=== PATIENT | female | born 1975 | race Caucasian/White ===

== ENCOUNTER 2016-03-20 05:05 | Inpatient (IN) ==
[2016-03-20] MEDS ORDERED: Ondansetron 4 MG/2 ML VIAL IV ONE (05:52)
[2016-03-20 05:58] LABS: Basophils % 0.1 %; Hematocrit 34.8 % (35.3-44.9); Hemoglobin 12.1 g/dL (11.5-15.4); Immature Granulocytes % 0.9 % (0-4); Lymphocytes # 1.3 K/mcL (0.6-4.6); Lymphocytes % 6.1 %; Mean Corpuscular HGB Conc 34.8 g/dL (31.6-35.5); Mean Corpuscular Hemoglobin 31.2 pg (28.0-33.3); Mean Corpuscular Volume 89.7 fL (83.0-100.0); Mean Platelet Volume 10.8 fL (9.4-12.4); Monocytes # 1.2 K/mcL (0.0-1.3); Monocytes % 5.8 %; Neutrophils # 18.3 K/mcL (1.6-8.9); Platelet Count 204 K/mcL (140-400); Red Blood Count 3.88 M/mcL (3.82-4.97); Red Cell Distribution Width 12.2 % (11.5-14.5); Segmented Neutrophils % 87.1 %
[2016-03-20 05:59] LABS: Bilirubin,Urine Negative (Negative); Blood,Urine Large (Negative); Clarity,Urine Clear (Clear); Color,Urine Yellow (Yellow); Glucose,Urine (UA) Normal (Normal); Ketones,Urine 40 mg/dL (Negative); Leukocyte Esterase,Urine Negative (Negative); Nitrite,Urine Negative (Negative); PH,Urine 6.5 pH Units (5.0-8.0); Protein,Urine Negative (Neg-Trace); Specific Gravity,Urine 1.006 (1.010-1.025); Urobilinogen,Urine Normal (Normal)
[2016-03-20] MEDS: 0.9 % Sodium Chloride 1,000 ML IV SCH (06:00)
[2016-03-20 06:09] LABS: Squamous Epithelial Cell,Urine Few per lpf (None-Few)
[2016-03-20 06:10] LABS: BUN/Creatinine Ratio 6 (6-26); Calcium 9.1 mg/dL (8.6-10.8); Carbon Dioxide 24 mEq/L (19-29); Chloride 95 mEq/L (98-109); Glucose 120 mg/dL (70-99); Lipase 11 Units/L (8-78); Osmolality,Calculated 272 (280-300); Potassium 2.9 mEq/L (3.5-4.5); Sodium 132 mEq/L (136-145); eGFR For African Americans > 60 (> 60); eGFR For Non-African Americans > 60 (> 60)
[2016-03-20 06:11] LABS: Bacteria,Urine Moderate per hpf (None-Few); Mucus,Urine Few (Few); WBC,Urine 0-3 per hpf (0-3)
[2016-03-20 06:13] LABS: Blood Urea Nitrogen 4 mg/dL (7-20)
[2016-03-20 06:20] LABS: Platelet Estimate Normal (Normal); Reactive Lymphocytes Present (Not Present)
[2016-03-20] MEDS ORDERED: Levofloxacin 750 MG/150 ML 750 MG/150 ML BAG IVPB ONE (06:57)
--- NOTE | 2016-03-20 07:00 | Emergency Department Note ---
Disposition Clinical Impression: Multifocal pneumonia Disposition: Admitted As Inpatient Condition: Good Time of Disposition: 07:07 General Adult HPI - General Chief complaint: ED Chest Pain Stated complaint: CP/Vomiting x Week Source: patient Limitations: no limitations Nursing Notes Reviewed: Yes Vital Signs Reviewed: Yes - History of Present Illness HPI Narrative: Left anterior chest pain pleuritic in nature 2 days. Vomiting today. No prior pulmonary history. No abdominal pain. No flank pain. No diarrhea well- appearing without tachypnea or hypoxia. Onset (ago): hour(s) Location: chest Radiation: non-radiation Pain Severity: moderate Pain Scale: 3 Quality: sharp Consistency: intermittent Improves with: rest (Headache) Worsens with: movement Associated symptoms: Reports: chest pain, cough, nausea/vomiting. Denies: diaphoresis, loss of appetite, malaise - Related Data Home Medications Medication Instructions Recorded Confirmed Guaifenesin/Dm/Pseudoephedrine 1 each PO QID 03/20/16 03/20/16 [Capmist Dm Tablet] PredniSONE 30 mg PO BID 03/20/16 03/20/16 Previous Rx's Medication Instructions Recorded Levofloxacin [Levaquin] 500 mg PO DAILY #6 tablet 03/20/16 Ondansetron ODT [Zofran ODT] 4 mg PO Q6HR PRN #7 tab 03/20/16 Saccharomyces Boulardii [Florastor] 250 mg PO 1-2XD #10 capsule 03/20/16 Allergies Allergy/AdvReac Type Severity Reaction Status Date / Time prednisone Allergy Shakiness Verified 03/20/16 09:02 Constitutional: Denies: fever, chills, weakness, weight change Eyes: Denies: eye pain, eye discharge, vision change ENT ED: Denies: ear pain, throat pain, dental pain, hearing loss, epistaxis, congestion, dysphagia Cardiovascular: Reports: chest pain Respiratory: Reports: as per HPI, cough. Denies: sputum production Gastrointestinal: Reports: nausea, vomiting Genitourinary: Denies: dysuria, frequency, hematuria, discharge Musculoskeletal: Denies: back pain, neck pain, arthralgia, myalgia Integumentary: Denies: rash, abrasion, lesions Neurological: Denies: headache, weakness, numbness, paresthesias, confusion, abnormal gait, vertigo Psychiatric: Denies: anxiety, depression, suicidal thoughts, homicidal thoughts , auditory hallucinations, visual hallucinations Endocrine: Denies: fatigue Hematological/Lymphatic: Denies: easy bleeding, easy bruising Allergic/Immunologic: Denies: facial swelling, urticaria Past Medical History - Past Medical History Medical history: Reports: no medical history Psychiatric history: Reports: no psych history - Social History Smoking Status: Never smoker Smokeless Tobacco Status: No Alcohol use: Reports: none Drug use: Reports: none Physical Exam - General Limitations: no limitations General appearance: alert - Head Head exam: atraumatic, normocephalic, normal inspection - Eye Eye exam: Present: normal appearance, PERRL, EOMI - Expanded Eye Exam Pupils: Left: reactive - ENT ENT exam: normal exam, normal oropharynx, mucous membranes moist - Expanded ENT Exam External ear exam: Present: normal external inspection Mouth exam: Present: normal external inspection Teeth exam: Present: normal inspection Throat exam: Present: normal inspection - Neck Neck exam: Present: normal inspection, full ROM, trachea midline - Chest Chest inspection: Present: symmetric chest wall rise - Respiratory Respiratory exam: Present: wheezes. Absent: respiratory distress - Cardiovascular Cardiovascular exam: Present: regular rate, normal rhythm, normal heart sounds - Abdominal Exam Abdominal exam: Present: soft, Non-Tender. Absent: tenderness, distention, guarding, rebound, rigidity - Extremities Exam Extremities exam: Present: normal inspection, full ROM. Absent: tenderness, pedal edema - Expanded Upper Extremity Exam Shoulder exam: Present: normal inspection, full ROM Arm exam: Present: normal inspection, full ROM Elbow exam: Present: normal inspection, full ROM Forearm/Wrist exam: Present: normal inspection, full ROM Hand exam: Present: normal inspection, full ROM Vascular exam: Normal: capillary refill, radial pulse - Expanded Lower Extremity Exam Hip/Pelvis exam: Present: normal inspection, full ROM Upper leg exam: Present: normal inspection, full ROM Knee exam: Present: normal inspection, full ROM Lower leg exam: Present: normal inspection, full ROM Ankle exam: Present: normal inspection, full ROM Foot/toe exam: Present: normal inspection, full ROM Neurovascular/Tendon exam: Absent: motor deficit, sensory deficit, tendon deficit - Back Exam Back exam: Present: normal inspection, full ROM. Absent: tenderness - Neurological Exam Neurological exam: Present: alert, oriented X3 - Expanded Neurological Exam Patient oriented to: Present: person, place, time Coma Scale Eye Opening: Spontaneous Coma Scale Motor Response: Obeys Commands Coma Scale Verbal Response: Oriented Coma Scale Total: 15 - Psychiatric Psychiatric exam: Present: anxious - Skin Skin exam: Present: warm, dry, intact, normal color Course Vital Signs Temperature 99.6 F 03/20/16 05:10 Pulse Rate 100 03/20/16 05:10 Respiratory Rate 17 03/20/16 05:10 Blood Pressure 112/70 03/20/16 05:10 O2 Sat by Pulse Oximetry 100 03/20/16 05:10 Temperature 100.7 F H 03/20/16 19:08 Pulse Rate 123 03/20/16 19:08 Respiratory Rate 18 03/20/16 19:08 Blood Pressure 116/70 03/20/16 19:08 O2 Sat by Pulse Oximetry 94 L 03/20/16 19:08 Oxygen Delivery Oxygen Delivery Room Air Medical Decision Making - Lab Data Result diagrams: 03/20/16 05:37 03/20/16 05:37 Lab Results 03/20/16 03/20/16 03/20/16 Range/Units 05:30 05:37 05:37 WBC 21.0 H (4.3-11.1) K/mcL RBC 3.88 (3.82-4.97) M/mcL Hgb 12.1 (11.5-15.4) g/dL Hct 34.8 L (35.3-44.9) % MCV 89.7 (83.0-100.0) fL MCH 31.2 (28.0-33.3) pg MCHC 34.8 (31.6-35.5) g/dL RDW 12.2 (11.5-14.5) % Plt Count 204 (140-400) K/mcL MPV 10.8 (9.4-12.4) fL Immature Gran % 0.9 (0-4) % Seg Neutrophils % 87.1 % Lymphocytes % 6.1 % Monocytes % 5.8 % Eosinophils % 0.0 % Basophils % 0.1 % Neutrophils # 18.3 H (1.6-8.9) K/mcL Lymphocytes # 1.3 (0.6-4.6) K/mcL Monocytes # 1.2 (0.0-1.3) K/mcL Eosinophils # 0.0 (0.0-0.6) K/mcL Basophils # 0.0 (0.0-0.2) K/mcL Reactive Lymphocytes Present A (Not Present) Platelet Estimate Normal (Normal) D-Dimer 584 H (0-500) ng/mLFEU Sodium (136-145) mEq/L Potassium (3.5-4.5) mEq/L Chloride (98-109) mEq/L Carbon Dioxide (19-29) mEq/L BUN (7-20) mg/dL Creatinine (0.57-1.11) mg/dL Est GFR ( Amer) (> 60) Est GFR (Non-Af Amer) (> 60) BUN/Creatinine Ratio (6-26) Glucose (70-99) mg/dL Calculated Osmolality (280-300) Calcium (8.6-10.8) mg/dL Troponin I (0-0.03) ng/mL Lipase (8-78) Units/L Urine Color Yellow (Yellow) Urine Clarity Clear (Clear) Urine pH 6.5 (5.0-8.0) pH Units Ur Specific [place] 1.006 L (1.010-1.025) Urine Protein Negative (Neg-Trace) mg/dL Urine Glucose (UA) Normal (Normal) mg/dL Urine Ketones 40 H (Negative) mg/dL Urine Blood Large H (Negative) Urine Nitrite Negative (Negative) Urine Bilirubin Negative (Negative) Urine Urobilinogen Normal (Normal) mg/dL Ur Leukocyte Esterase Negative (Negative) Urine Microscopic RBC 3-5 H (0-3) per hpf Urine Microscopic WBC 0-3 (0-3) per hpf Ur Squamous Epith Cells Few (None-Few) per lpf Urine Bacteria Moderate H (None-Few) per hpf Urine Mucus Few (Few) 03/20/16 03/20/16 Range/Units 05:37 05:37 WBC (4.3-11.1) K/mcL RBC (3.82-4.97) M/mcL Hgb (11.5-15.4) g/dL Hct (35.3-44.9) % MCV (83.0-100.0) fL MCH (28.0-33.3) pg MCHC (31.6-35.5) g/dL RDW (11.5-14.5) % Plt Count (140-400) K/mcL MPV (9.4-12.4) fL Immature Gran % (0-4) % Seg Neutrophils % % Lymphocytes % % Monocytes % % Eosinophils % % Basophils % % Neutrophils # (1.6-8.9) K/mcL Lymphocytes # (0.6-4.6) K/mcL Monocytes # (0.0-1.3) K/mcL Eosinophils # (0.0-0.6) K/mcL Basophils # (0.0-0.2) K/mcL Reactive Lymphocytes (Not Present) Platelet Estimate (Normal) D-Dimer (0-500) ng/mLFEU Sodium 132 L (136-145) mEq/L Potassium 2.9 L (3.5-4.5) mEq/L Chloride 95 L (98-109) mEq/L Carbon Dioxide 24 (19-29) mEq/L BUN 4 L (7-20) mg/dL Creatinine 0.62 (0.57-1.11) mg/dL Est GFR ( Amer) > 60 (> 60) Est GFR (Non-Af Amer) > 60 (> 60) BUN/Creatinine Ratio 6 (6-26) Glucose 120 H (70-99) mg/dL Calculated Osmolality 272 L (280-300) Calcium 9.1 (8.6-10.8) mg/dL Troponin I 0.00 (0-0.03) ng/mL Lipase 11 (8-78) Units/L Urine Color (Yellow) Urine Clarity (Clear) Urine pH (5.0-8.0) pH Units Ur Specific [place] (1.010-1.025) Urine Protein (Neg-Trace) mg/dL Urine Glucose (UA) (Normal) mg/dL Urine Ketones (Negative) mg/dL Urine Blood (Negative) Urine Nitrite (Negative) Urine Bilirubin (Negative) Urine Urobilinogen (Normal) mg/dL Ur Leukocyte Esterase (Negative) Urine Microscopic RBC (0-3) per hpf Urine Microscopic WBC (0-3) per hpf Ur Squamous Epith Cells (None-Few) per lpf Urine Bacteria (None-Few) per hpf Urine Mucus (Few) - EKG Data EKG #1 EKG attestation: Yes I reviewed and interpreted this EKG. EKG results narrative: sinus tachycardia. No acute injury pattern. Intervals unremarkable
--- NOTE | 2016-03-20 08:32 | Emergency Department Note ---
Disposition Clinical Impression: Multifocal pneumonia Disposition: Admitted As Inpatient Condition: Good Reasons to Return/Additional Instructions: Re eval w/ your doctor in 2-3 days, ER sooner if worse Prescriptions: Ondansetron ODT [Zofran ODT] 4 mg PO Q6HR PRN #7 tab PRN Reason: Vomiting Levofloxacin [Levaquin] 500 mg PO DAILY #6 tablet Saccharomyces Boulardii [Florastor] 250 mg PO 1-2XD #10 capsule Referrals: Roxie Hinojosa CNP [Primary Care Provider] - Time of Disposition: 08:32 General Adult HPI - General Chief complaint: ED Chest Pain Stated complaint: CP/Vomiting x Week Time Seen by Provider: 03/20/16 08:25 Source: patient Limitations: no limitations - History of Present Illness Location: chest Pain Scale: 7 Quality: sharp Improves with: rest (Headache) Worsens with: movement Associated symptoms: Reports: chest pain, cough, nausea/vomiting. Denies: diaphoresis, loss of appetite, malaise - Related Data Previous Rx's Medication Instructions Recorded Levofloxacin [Levaquin] 500 mg PO DAILY #6 tablet 03/20/16 Ondansetron ODT [Zofran ODT] 4 mg PO Q6HR PRN #7 tab 03/20/16 Saccharomyces Boulardii [Florastor] 250 mg PO 1-2XD #10 capsule 03/20/16 Allergies Allergy/AdvReac Type Severity Reaction Status Date / Time prednisone Allergy Shakiness Verified 03/20/16 05:09 Constitutional: Denies: fever, chills, weakness, weight change Eyes: Denies: eye pain, eye discharge, vision change ENT ED: Denies: ear pain, throat pain, dental pain, hearing loss, epistaxis, congestion, dysphagia Cardiovascular: Reports: chest pain Respiratory: Reports: as per HPI, cough. Denies: sputum production Gastrointestinal: Reports: nausea, vomiting Genitourinary: Denies: dysuria, frequency, hematuria, discharge Musculoskeletal: Denies: back pain, neck pain, arthralgia, myalgia Integumentary: Denies: rash, abrasion, lesions Neurological: Denies: headache, weakness, numbness, paresthesias, confusion, abnormal gait, vertigo Psychiatric: Denies: anxiety, depression, suicidal thoughts, homicidal thoughts , auditory hallucinations, visual hallucinations Endocrine: Denies: fatigue Hematological/Lymphatic: Denies: easy bleeding, easy bruising Allergic/Immunologic: Denies: facial swelling, urticaria Past Medical History - Past Medical History Medical history: Reports: no medical history Psychiatric history: Reports: no psych history - Social History Smoking Status: Never smoker Smokeless Tobacco Status: No Alcohol use: Reports: none Drug use: Reports: none Physical Exam - General Limitations: no limitations General appearance: alert Course - Reevaluation(s) Reevaluation #1: Received patient in sign out from the department emergency medicine overnight attending Dr. Jessica Olmedo. Please see copy of his note for details of the history and physical evaluation and management up to the point of sign out at 7 AM. I was to follow up results of the CAT scan of the chest after d-dimer [address] shows multifocal pneumonia. No pulmonary embolism. Patient is still tachycardic at rest 113 118 bpm period and feels "terrible". Patient is getting IV antibiotics. Decision is made to admit patient. Hospitalist is being paged. Patient getting breakfast tray and IV Dilaudid for control of her symptoms. Patient is being admitted for diagnosis of multifocal pneumonia. Provided 35 minutes of critical care services for this patient. Time: 08:30 Vital Signs Temperature 99.6 F 03/20/16 05:10 Pulse Rate 100 03/20/16 05:10 Respiratory Rate 17 03/20/16 05:10 Blood Pressure 112/70 03/20/16 05:10 O2 Sat by Pulse Oximetry 100 03/20/16 05:10 Temperature 99.6 F 03/20/16 05:10 Pulse Rate 100 03/20/16 07:34 Respiratory Rate 18 03/20/16 07:34 Blood Pressure 119/73 03/20/16 07:34 O2 Sat by Pulse Oximetry 97 03/20/16 07:34 Oxygen Delivery Oxygen Delivery Room Air Medical Decision Making - Lab Data Result diagrams: 03/20/16 05:37 03/20/16 05:37 Lab Results 03/20/16 03/20/16 03/20/16 Range/Units 05:30 05:37 05:37 WBC 21.0 H (4.3-11.1) K/mcL RBC 3.88 (3.82-4.97) M/mcL Hgb 12.1 (11.5-15.4) g/dL Hct 34.8 L (35.3-44.9) % MCV 89.7 (83.0-100.0) fL MCH 31.2 (28.0-33.3) pg MCHC 34.8 (31.6-35.5) g/dL RDW 12.2 (11.5-14.5) % Plt Count 204 (140-400) K/mcL MPV 10.8 (9.4-12.4) fL Immature Gran % 0.9 (0-4) % Seg Neutrophils % 87.1 % Lymphocytes % 6.1 % Monocytes % 5.8 % Eosinophils % 0.0 % Basophils % 0.1 % Neutrophils # 18.3 H (1.6-8.9) K/mcL Lymphocytes # 1.3 (0.6-4.6) K/mcL Monocytes # 1.2 (0.0-1.3) K/mcL Eosinophils # 0.0 (0.0-0.6) K/mcL Basophils # 0.0 (0.0-0.2) K/mcL Reactive Lymphocytes Present A (Not Present) Platelet Estimate Normal (Normal) D-Dimer 584 H (0-500) ng/mLFEU Sodium (136-145) mEq/L Potassium (3.5-4.5) mEq/L Chloride (98-109) mEq/L Carbon Dioxide (19-29) mEq/L BUN (7-20) mg/dL Creatinine (0.57-1.11) mg/dL Est GFR ( Amer) (> 60) Est GFR (Non-Af Amer) (> 60) BUN/Creatinine Ratio (6-26) Glucose (70-99) mg/dL Calculated Osmolality (280-300) Calcium (8.6-10.8) mg/dL Troponin I (0-0.03) ng/mL Lipase (8-78) Units/L Urine Color Yellow (Yellow) Urine Clarity Clear (Clear) Urine pH 6.5 (5.0-8.0) pH Units Ur Specific [place] 1.006 L (1.010-1.025) Urine Protein Negative (Neg-Trace) mg/dL Urine Glucose (UA) Normal (Normal) mg/dL Urine Ketones 40 H (Negative) mg/dL Urine Blood Large H (Negative) Urine Nitrite Negative (Negative) Urine Bilirubin Negative (Negative) Urine Urobilinogen Normal (Normal) mg/dL Ur Leukocyte Esterase Negative (Negative) Urine Microscopic RBC 3-5 H (0-3) per hpf Urine Microscopic WBC 0-3 (0-3) per hpf Ur Squamous Epith Cells Few (None-Few) per lpf Urine Bacteria Moderate H (None-Few) per hpf Urine Mucus Few (Few) 03/20/16 03/20/16 Range/Units 05:37 05:37 WBC (4.3-11.1) K/mcL RBC (3.82-4.97) M/mcL Hgb (11.5-15.4) g/dL Hct (35.3-44.9) % MCV (83.0-100.0) fL MCH (28.0-33.3) pg MCHC (31.6-35.5) g/dL RDW (11.5-14.5) % Plt Count (140-400) K/mcL MPV (9.4-12.4) fL Immature Gran % (0-4) % Seg Neutrophils % % Lymphocytes % % Monocytes % % Eosinophils % % Basophils % % Neutrophils # (1.6-8.9) K/mcL Lymphocytes # (0.6-4.6) K/mcL Monocytes # (0.0-1.3) K/mcL Eosinophils # (0.0-0.6) K/mcL Basophils # (0.0-0.2) K/mcL Reactive Lymphocytes (Not Present) Platelet Estimate (Normal) D-Dimer (0-500) ng/mLFEU Sodium 132 L (136-145) mEq/L Potassium 2.9 L (3.5-4.5) mEq/L Chloride 95 L (98-109) mEq/L Carbon Dioxide 24 (19-29) mEq/L BUN 4 L (7-20) mg/dL Creatinine 0.62 (0.57-1.11) mg/dL Est GFR ( Amer) > 60 (> 60) Est GFR (Non-Af Amer) > 60 (> 60) BUN/Creatinine Ratio 6 (6-26) Glucose 120 H (70-99) mg/dL Calculated Osmolality 272 L (280-300) Calcium 9.1 (8.6-10.8) mg/dL Troponin I 0.00 (0-0.03) ng/mL Lipase 11 (8-78) Units/L Urine Color (Yellow) Urine Clarity (Clear) Urine pH (5.0-8.0) pH Units Ur Specific [place] (1.010-1.025) Urine Protein (Neg-Trace) mg/dL Urine Glucose (UA) (Normal) mg/dL Urine Ketones (Negative) mg/dL Urine Blood (Negative) Urine Nitrite (Negative) Urine Bilirubin (Negative) Urine Urobilinogen (Normal) mg/dL Ur Leukocyte Esterase (Negative) Urine Microscopic RBC (0-3) per hpf Urine Microscopic WBC (0-3) per hpf Ur Squamous Epith Cells (None-Few) per lpf Urine Bacteria (None-Few) per hpf Urine Mucus (Few)
[2016-03-20] MEDS ORDERED: *HR* HYDROmorphone (PF) 1 MG/ML SYRINGE IVP ONE (08:33)
[2016-03-20] MEDS ORDERED: Ondansetron 4 MG/2 ML VIAL IVP ONE (08:33)
[2016-03-20] MEDS ORDERED: *HR* Morphine 2 MG/ML SYRINGE IVP PRN (09:36)
[2016-03-20] MEDS ORDERED: Naloxone 0.4 MG/ML INJ IVP PRN (09:36)
--- NOTE | 2016-03-20 10:31 | Internal Med History&Physical ---
Date of Encounter: 03/20/16 Time of Encounter: 09:30 Internal Medicine - H&P: HPI Chief complaint: Fever, nausea, vomiting, cough and chest pain x 7 days Admitted From: Emergency Dept Plans for Post Hospital Care: Home History of present illness: Ms. Gamez is a 40 year old female with no signifcant past medical history, non -smoker presents with 7 days of nausea, vomiting, cough, chest pain and fever. Cough is intermittently production of yellow sputum, cough and deep breathing associated with left lower chest was pain posteriorly. No hemoptysis, no rash. Vomitus is nion-billious and non-projectile, no hematemesis. She reports epigastric fullness/soreness. No rash. No sick contacts, no recent travel. She has not recieved influenza vaccination for the season. 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 [facility] and prescrined prednisone and a cough mixture. The prednisone cause anxiety, angiutation and confusion. Her PCP STOPPED PREDNISONE SAYING THE DOSE WAS TOO HIGH. She has not receieved any antibiotics. She has progressive gotten worse with SOB at rest. She is FULL CODE as per discussion, she nominates his boyfriend listed on [employer] ([phone]) as his NOK/POA. ROS: A 10-point ROS was performed, positives and relevant negatives are detailed , system-symptom not mentioned is assumed negative unless otherwise stated. Positives: malaise, nausea, vomiting, fever, productive cough and chest pain ( pleuritic). Negatives: No PND or orthopnea., no chest pain (no pleurisy), no sore-throat, no hemoptysis, hematemesis, or hematochezia, no abdominal pain or diarrhea, no urinary or new-onset neurological symptoms. Family history: Father: COPD. Vital Signs Temperature 99.6 F 03/20/16 05:10 Pulse Rate 100 03/20/16 05:10 Respiratory Rate 17 03/20/16 05:10 Blood Pressure 112/70 03/20/16 05:10 O2 Sat by Pulse Oximetry 100 03/20/16 05:10 Temperature 99.6 F 03/20/16 05:10 Pulse Rate 95 03/20/16 05:47 Respiratory Rate 20 03/20/16 05:47 Blood Pressure 109/73 03/20/16 05:47 O2 Sat by Pulse Oximetry 96 03/20/16 05:47 Not in distress, somewhat lethargic, ill but non-toxic looking. Not pale, anicteric, warm to touch, acyanotic. Moist mucosa. HEENT: No JVD, no cervical lymphadenopathy, Chest : CTAB, diminished generally, especially in the bases. Heart: Tachycardia, RR, HS1/2, no m/r/g. Abdomen: soft, tender in the epigastrium and the tip of the spleen, no masses, DIRECTOR EDUCATION: AAO X 3, no gross focal neurological signs. Skin: No active skin lesion Extremities: No pedal edema, normal pedal pulses, no calf tenderness Lab Results 03/20/16 03/20/16 03/20/16 Range/Units 05:30 05:37 05:37 WBC 21.0 H (4.3-11.1) K/mcL RBC 3.88 (3.82-4.97) M/mcL Hgb 12.1 (11.5-15.4) g/dL Hct 34.8 L (35.3-44.9) % MCV 89.7 (83.0-100.0) fL MCH 31.2 (28.0-33.3) pg MCHC 34.8 (31.6-35.5) g/dL RDW 12.2 (11.5-14.5) % Plt Count 204 (140-400) K/mcL MPV 10.8 (9.4-12.4) fL Immature Gran % 0.9 (0-4) % Seg Neutrophils % 87.1 % Lymphocytes % 6.1 % Monocytes % 5.8 % Eosinophils % 0.0 % Basophils % 0.1 % Neutrophils # 18.3 H (1.6-8.9) K/mcL Lymphocytes # 1.3 (0.6-4.6) K/mcL Monocytes # 1.2 (0.0-1.3) K/mcL Eosinophils # 0.0 (0.0-0.6) K/mcL Basophils # 0.0 (0.0-0.2) K/mcL Reactive Lymphocytes Present A (Not Present) Platelet Estimate Normal (Normal) D-Dimer 584 H (0-500) ng/mLFEU Sodium (136-145) mEq/L Potassium (3.5-4.5) mEq/L Chloride (98-109) mEq/L Carbon Dioxide (19-29) mEq/L BUN (7-20) mg/dL Creatinine (0.57-1.11) mg/dL Est GFR ( Amer) (> 60) Est GFR (Non-Af Amer) (> 60) BUN/Creatinine Ratio (6-26) Glucose (70-99) mg/dL Calculated Osmolality (280-300) Calcium (8.6-10.8) mg/dL Troponin I (0-0.03) ng/mL Lipase (8-78) Units/L Urine Color Yellow (Yellow) Urine Clarity Clear (Clear) Urine pH 6.5 (5.0-8.0) pH Units Ur Specific [place] 1.006 L (1.010-1.025) Urine Protein Negative (Neg-Trace) mg/dL Urine Glucose (UA) Normal (Normal) mg/dL Urine Ketones 40 H (Negative) mg/dL Urine Blood Large H (Negative) Urine Nitrite Negative (Negative) Urine Bilirubin Negative (Negative) Urine Urobilinogen Normal (Normal) mg/dL Ur Leukocyte Esterase Negative (Negative) Urine Microscopic RBC 3-5 H (0-3) per hpf Urine Microscopic WBC 0-3 (0-3) per hpf Ur Squamous Epith Cells Few (None-Few) per lpf Urine Bacteria Moderate H (None-Few) per hpf Urine Mucus Few (Few) CXR: Bibasilar pneumonia Chest CT (done by ED physician because of elevated d-dimer) shows multifocal pneumonia. No pulmonary embolism. Chronic granulomatous disease. EKG: NSR, normal intervals, normal axis, no st-t segment or T wave anomaly IMP Multifocal pneuomonia CT evidence of chronic granulomatous disease (focus in the lung) PLAN Admit for IV hydration, IV antibiotics, antiemetic and anlgesia Supportive care, prn oxygen as required. Regular diet. Famotidine for GI prophylaxis No indication for DVT prophylaxis I discussed my assessment with the patient, she verbalized understanding and is agreeable to admission. She is admitted for IV antibiotics and other supportive care. Past Med Surg Social Fam HX - Past Medical History Medical history: no medical history Psychiatric history: no psych history - Social History Smoking Status: Never smoker Smokeless Tobacco Status: No Alcohol use: none Drug use: none Internal Medicine - H&P: Meds Guaifenesin/Dm/Pseudoephedrine [Capmist Dm Tablet] 1 each PO QID 03/20/16 [ History] Levofloxacin [Levaquin] 500 mg PO DAILY #6 tablet 03/20/16 [Rx] Ondansetron ODT [Zofran ODT] 4 mg PO Q6HR PRN #7 tab 03/20/16 [Rx] PredniSONE 30 mg PO BID 03/20/16 [History] Saccharomyces Boulardii [Florastor] 250 mg PO 1-2XD #10 capsule 03/20/16 [Rx] Allergies prednisone Allergy (Verified 03/20/16 09:02) Shakiness her doctor told her not to take it All Systems PM: A 10-system review of systems was performed and is negative for pertinent findings except as documented above in the HPI. - Constitutional Vitals: Temp Pulse Resp BP Pulse Ox 99.1 F 101 19 117/69 92 L 03/20/16 09:36 03/20/16 09:36 03/20/16 09:36 03/20/16 09:36 03/20/16 09:36 Internal Med - H&P Results - Labs CBC & Chem 7: 03/20/16 05:37 03/20/16 05:37
[2016-03-20] MEDS: 0.9 % Sodium Chloride w KCl 20 MEQ/1,000 ML MLS IVC SCH ×2 (10:38→20:55)
[2016-03-20] MEDS: Albuterol 2.5 MG/3 ML NEBULIZER IH SCH ×3 (11:00→22:00)
[2016-03-20] MEDS: *HR* HYDROcodone/Acet 5/325 mg TABLET PO PRN ×2 (11:58→19:29)
[2016-03-20] MEDS: Ketorolac 30 MG/ML VIAL IVP PRN (14:57)
[2016-03-20] MEDS: Ondansetron 4 MG/2 ML VIAL IVP PRN (15:02)
--- NOTE | 2016-03-20 16:20 | Electrocardiograph Report ---
[address] [address] Test Date: 2016-03-20 Pat Name: Patrice Gamez Department: 103 Room: 3B Gender: F [employer]: : 1975 Requested By: Zuhair Humphrey Order Number: [id number] Reading MD: Salomón Jaimes Measurements Intervals Luana Rate: 94 P: 65 NV: 112 QRS: 52 QRSD: 82 T: 41 QT: 342 QTc: 394 Interpretive Statements SINUS RHYTHM WITH SHORT NV INTERVAL Electronically Signed On 03-20-2016 16:18:39 EST by Salomón Jaimes
[2016-03-20] MEDS ORDERED: *HR* LORazepam 0.5 MG TABLET PO ONE (20:32)
[2016-03-20] MEDS: Famotidine 20 MG TABLET PO SCH (20:55)
[2016-03-20] MEDS: Acetaminophen 325 MG TABLET PO PRN (23:17)
[2016-03-21] MEDS ORDERED: Piperacillin/Tazobactam 3.375 GM in D5% in Water (Mini-Bag+) 100 ML IVPB SCH (03:00)
[2016-03-21] MEDS: *HR* HYDROcodone/Acet 5/325 mg TABLET PO PRN ×3 (04:29→19:40)
[2016-03-21 04:41] LABS: Basophils % 0.2 %; Hematocrit 32.2 % (35.3-44.9); Hemoglobin 10.7 g/dL (11.5-15.4); Immature Granulocytes % 0.9 % (0-4); Lymphocytes % 5.5 %; Mean Corpuscular HGB Conc 33.2 g/dL (31.6-35.5); Mean Corpuscular Hemoglobin 30.6 pg (28.0-33.3); Mean Platelet Volume 10.6 fL (9.4-12.4); Monocytes # 1.5 K/mcL (0.0-1.3); Monocytes % 8.4 %; Platelet Count 186 K/mcL (140-400); Red Cell Distribution Width 12.7 % (11.5-14.5)
[2016-03-21 04:53] LABS: BUN/Creatinine Ratio 8 (6-26); Blood Urea Nitrogen 5 mg/dL (7-20); Calcium 8.2 mg/dL (8.6-10.8); Carbon Dioxide 22 mEq/L (19-29); Chloride 107 mEq/L (98-109); Glucose 146 mg/dL (70-99); Osmolality,Calculated 284 (280-300); Sodium 137 mEq/L (136-145); eGFR For African Americans > 60 (> 60); eGFR For Non-African Americans > 60 (> 60)
[2016-03-21] MEDS: Albuterol 2.5 MG/3 ML NEBULIZER IH SCH ×2 (04:53→10:03)
[2016-03-21] MEDS: 0.9 % Sodium Chloride 1,000 ML IV SCH (05:30)
[2016-03-21] MEDS: 0.9 % Sodium Chloride w KCl 20 MEQ/1,000 ML MLS IVC SCH (06:28)
[2016-03-21] MEDS: *HR* Enoxaparin 40 MG/0.4 ML SYRINGE SQ SCH (06:28)
[2016-03-21] MEDS: Ketorolac 30 MG/ML VIAL IVP PRN ×2 (06:32→15:15)
[2016-03-21] MEDS: Famotidine 20 MG TABLET PO SCH ×2 (07:57→19:40)
[2016-03-21] MEDS ORDERED: Levofloxacin 750 MG/150 ML 750 MG/150 ML BAG IVPB SCH (09:00)
[2016-03-21] MEDS: Ondansetron 4 MG/2 ML VIAL IVP PRN ×2 (10:28→19:40)
[2016-03-21] MEDS: Azithromycin 500 MG in D5% in Water 250 ML IVPB SCH (10:32)
[2016-03-21] MEDS ORDERED: 0.9 % Sodium Chloride 1,000 ML IVC ONE (15:07)
[2016-03-21] MEDS ORDERED: *HR* LORazepam 1 MG TABLET PO ONE ×2 (15:08→21:28)
--- NOTE | 2016-03-21 15:12 | Internal Med Progress Note ---
Date of Encounter: 03/21/16 Time of Encounter: 10:30 - Assessment and plan (1) Sepsis Current Visit: Yes Status: Acute Assessment and plan: Patient with fever, Tmax 102.7, tachycardia, leukocytosis and bilateral pneumonia She has been started on antibiotics Chart review reveals no cultures Stat blood and sputum cultures ordered Check lactate BP WNL IVF bolus for tachycardia Patient very anxious at time of review and this may also be causing tachycardia Will d/c albuterol nebs, patient is not wheezing Continue ceftriaxone 2g daily, and Azithromycin 500mg IV daily Follow cultures Monitor chem and CBC Patient is high risk due to diagnosis of sepsis , multifocal pneumonia with risk for progression to severe sepsis and risk for respiratory failure Supplemental O2 prn Qualifiers: Sepsis type: sepsis due to unspecified organism Qualified Code(s): A41.9 - Sepsis, unspecified organism (2) Pneumonia Current Visit: Yes Status: Acute Assessment and plan: As above Qualifiers: Pneumonia type: due to unspecified organism Laterality: bilateral Lung location: unspecified part of lung Qualified Code(s): J18.9 - Pneumonia, unspecified organism - Subjective Interval history: 40 Y/O F Patient has no PMH except for prednisone induced psychosis in the past week after she went to an urgent care for URI and was given prednisone She is admitted for management of sepsis secondary to bilateral pneumonia She is seen at bedside s/p albuterol neb, very anxious She denies new complains except that she is anxious She has been started on appropriate therapy for Community acquired pneumonia - Constitutional Vitals: Temp Pulse Resp BP Pulse Ox 98.1 F 111 20 122/80 93 L 03/21/16 14:59 03/21/16 14:59 03/21/16 11:22 03/21/16 14:59 03/21/16 14:59 General appearance: Present: mild distress, A&O X 3, morbidly obese, pleasant - Head Head exam: Present: atraumatic, normocephalic - Eye Eye exam: Present: PERRL, conjuntiva pink, sclera anicteric Pupils: Present: PERRL - Neck Neck exam general surgery: Present: supple, trachea midline. Absent: lymphadenopathy - Respiratory Respiratory exam: Present: rhonchi - Cardiovascular Cardiovascular exam: Present: RRR, +S1, +S2. Absent: diastolic murmur, gallop, rubs, systolic murmur - GI/Abdominal GI/Abdominal exam: Present: normal bowel sounds, soft, no peritoneal signs. Absent: distended, tenderness - Extremities Exam Extremities exam: Present: warm, radial pulses palpable and symetrical. Absent : calf tenderness, cyanotic, pedal edema - Neurological Exam Neurological exam: Present: CN II-XII intact, oriented X3, no focal deficits. Absent: pronater drift, facial droop, speech deficit - Skin Skin exam: Present: dry, intact Internal Medicine: Result - Labs CBC & Chem 7: 03/21/16 04:07 03/21/16 04:07 Labs: Short CBC 03/21/16 Range/Units 04:07 WBC 17.7 H (4.3-11.1) K/mcL Hgb 10.7 L (11.5-15.4) g/dL Hct 32.2 L (35.3-44.9) % Plt Count 186 (140-400) K/mcL Neutrophils # 15.0 H (1.6-8.9) K/mcL BMP 03/21/16 04:07 Sodium 137 Potassium 4.0 D Chloride 107 Carbon Dioxide 22 BUN 5 L Creatinine 0.62 Glucose 146 H Calcium 8.2 L - ABG Interpretation ABG results: PT/INR, D-dimer D-Dimer 584 ng/mLFEU (0-500) H 03/20/16 05:37 Consult Discharge Plan - Plan Referrals: Roxie Hinojosa CNP [Primary Care Provider] - 03/28/16 10:30 am
[2016-03-22] MEDS: *HR* HYDROcodone/Acet 5/325 mg TABLET PO PRN ×3 (02:26→19:51)
[2016-03-22 04:58] LABS: Basophils % 0.1 %; Eosinophils % 0.3 %; Hematocrit 29.8 % (35.3-44.9); Lymphocytes # 0.8 K/mcL (0.6-4.6); Lymphocytes % 4.9 %; Mean Corpuscular HGB Conc 33.6 g/dL (31.6-35.5); Mean Corpuscular Hemoglobin 30.3 pg (28.0-33.3); Mean Corpuscular Volume 90.3 fL (83.0-100.0); Mean Platelet Volume 10.5 fL (9.4-12.4); Monocytes # 1.3 K/mcL (0.0-1.3); Neutrophils # 13.3 K/mcL (1.6-8.9); Platelet Count 214 K/mcL (140-400); Red Cell Distribution Width 12.8 % (11.5-14.5); Segmented Neutrophils % 84.7 %
[2016-03-22 05:15] LABS: BUN/Creatinine Ratio 10 (6-26); Blood Urea Nitrogen 6 mg/dL (7-20); Calcium 7.9 mg/dL (8.6-10.8); Carbon Dioxide 20 mEq/L (19-29); Chloride 107 mEq/L (98-109); Glucose 104 mg/dL (70-99); Osmolality,Calculated 278 (280-300); Potassium 3.7 mEq/L (3.5-4.5); Sodium 135 mEq/L (136-145); eGFR For African Americans > 60 (> 60); eGFR For Non-African Americans > 60 (> 60)
[2016-03-22] MEDS: Ketorolac 30 MG/ML VIAL IVP PRN ×3 (05:29→21:36)
[2016-03-22] MEDS: *HR* Enoxaparin 40 MG/0.4 ML SYRINGE SQ SCH (05:30)
[2016-03-22] MEDS: 0.9 % Sodium Chloride w KCl 20 MEQ/1,000 ML MLS IVC SCH ×2 (05:35)
[2016-03-22] MEDS: Famotidine 20 MG TABLET PO SCH ×2 (08:27→19:21)
[2016-03-22] MEDS: Azithromycin 500 MG in D5% in Water 250 ML IVPB SCH (09:14)
[2016-03-22] MEDS: GuaiFENesin/Codeine Oral Soln 5 ML UDC PO PRN ×2 (12:46→19:20)
--- NOTE | 2016-03-22 14:21 | Internal Med Progress Note ---
Date of Encounter: 03/22/16 Time of Encounter: 11:25 - Assessment and plan (1) Sepsis Current Visit: Yes Status: Acute Assessment and plan: Patient with fever, Tmax 102.7, tachycardia, leukocytosis and bilateral pneumonia Fever is slightly improving, she remains tachycardic Blood and sputum cultures have been sent, pending results Chest CTA with bilateral pneumonia Continue Ceftriaxone 2g daily Continue Azithromycn 500mg IV daily Transfer out of bs unit, continuous pulse oximetry and cardiac monitoring Hold IVF Lactate is normal, patient is awake, no signs of severe sepsis If patient remains febrile after 48 hours of antibiotics, will obtain Chest imaging to r/o parapneumonic effusion and will escalate antibiotics Qualifiers: Sepsis type: sepsis due to unspecified organism Qualified Code(s): A41.9 - Sepsis, unspecified organism (2) Pneumonia Current Visit: Yes Status: Acute Assessment and plan: As above Qualifiers: Pneumonia type: due to unspecified organism Laterality: bilateral Lung location: unspecified part of lung Qualified Code(s): J18.9 - Pneumonia, unspecified organism - Subjective Interval history: 40 Y/O F Patient has no PMH except for prednisone induced psychosis in the past week after she went to an urgent care for URI and was given prednisone She is admitted for management of sepsis secondary to bilateral pneumonia She is seen at bedside this morning She complains of anxiety symptoms She is now able to produce sputum which has been sent for culture She continues to be febrile, T max 100.9 03/22/16 0300 She is also hypoxic requiring supplemental O2 She otherwise looks stable, laying flat in bed and speaking complete sentences - Constitutional Vitals: Temp Pulse Resp BP Pulse Ox 99.1 F 105 18 107/72 90 L 03/22/16 11:09 03/22/16 11:09 03/22/16 11:09 03/22/16 11:09 03/22/16 11:09 General appearance: Present: mild distress, A&O X 3, morbidly obese, pleasant - Head Head exam: Present: atraumatic, normocephalic - Eye Eye exam: Present: PERRL, conjuntiva pink, sclera anicteric Pupils: Present: PERRL - Neck Neck exam general surgery: Present: supple, trachea midline. Absent: lymphadenopathy - Respiratory Additional comments: Dimished breath sounds on the left lung zone at the base, new from yesterday's examination, no wheezing, no rhonchi - Cardiovascular Cardiovascular exam: Present: RRR, +S1, +S2. Absent: diastolic murmur, gallop, rubs, systolic murmur - GI/Abdominal GI/Abdominal exam: Present: normal bowel sounds, soft, no peritoneal signs. Absent: distended, tenderness - Extremities Exam Extremities exam: Present: warm, radial pulses palpable and symetrical. Absent : calf tenderness, cyanotic, pedal edema - Neurological Exam Neurological exam: Present: CN II-XII intact, oriented X3, no focal deficits. Absent: pronater drift, facial droop, speech deficit - Skin Skin exam: Present: dry, intact Internal Medicine: Result - Labs CBC & Chem 7: 03/22/16 04:23 03/22/16 04:23 Labs: Short CBC 03/22/16 Range/Units 04:23 WBC 15.7 H (4.3-11.1) K/mcL Hgb 10.0 L (11.5-15.4) g/dL Hct 29.8 L (35.3-44.9) % Plt Count 214 (140-400) K/mcL Neutrophils # 13.3 H (1.6-8.9) K/mcL BMP 03/22/16 04:23 Sodium 135 L Potassium 3.7 Chloride 107 Carbon Dioxide 20 BUN 6 L Creatinine 0.58 Glucose 104 H Calcium 7.9 L - ABG Interpretation ABG results: PT/INR, D-dimer D-Dimer 584 ng/mLFEU (0-500) H 03/20/16 05:37 Consult Discharge Plan - Plan Referrals: Roxie Hinojosa CNP [Primary Care Provider] - 03/28/16 10:30 am
[2016-03-22] MEDS: Acetaminophen 325 MG TABLET PO PRN (19:21)
[2016-03-23] MEDS ORDERED: Ipratropium/Albuterol Neb 3 ML IH STA (00:14)
[2016-03-23] MEDS ORDERED: Ipratropium/Albuterol Neb 3 ML IH PRN (00:15)
[2016-03-23] MEDS: *HR* HYDROcodone/Acet 5/325 mg TABLET PO PRN ×3 (00:42→12:53)
[2016-03-23] MEDS: GuaiFENesin/Codeine Oral Soln 5 ML UDC PO PRN ×2 (02:50→17:41)
[2016-03-23] MEDS ORDERED: Furosemide 20 MG/2 ML VIAL IVP STA (05:11)
--- NOTE | 2016-03-23 05:12 | Event Note ---
Date of Encounter: 03/23/16 Time of Encounter: 05:12 On-call hospitalist note: RN reports that the pt has Progressively worsening shortness of breath and now is short of breath at rest, with 6 LPM oxygen. I have evaluated the pt. crackles on the right side. stat CXR showed left pleural effusion and air space opacities on the right side worsened. I suspect pulmonary edema likely than infection (WBC count is improving and fevers improving). Will give a dose of lasix 20 mg IV and re-assess. If the pt is not improving, will consider BiPAP/CPAP. May need Pulmonary consult for possible parapneumonic effusion. Re-evaluated the pt at about 06:10 - pt feels much improved after lasix. I will signout to the day team.
[2016-03-23] MEDS: *HR* Enoxaparin 40 MG/0.4 ML SYRINGE SQ SCH (05:31)
[2016-03-23 05:40] LABS: Basophils # 0.1 K/mcL (0.0-0.2); Basophils % 0.3 %; Eosinophils # 0.1 K/mcL (0.0-0.6); Eosinophils % 0.7 %; Hematocrit 31.5 % (35.3-44.9); Hemoglobin 10.6 g/dL (11.5-15.4); Immature Granulocytes % 1.4 % (0-4); Lymphocytes % 5.5 %; Mean Corpuscular HGB Conc 33.7 g/dL (31.6-35.5); Mean Corpuscular Hemoglobin 30.5 pg (28.0-33.3); Mean Corpuscular Volume 90.5 fL (83.0-100.0); Mean Platelet Volume 10.5 fL (9.4-12.4); Monocytes # 1.5 K/mcL (0.0-1.3); Monocytes % 8.6 %; Platelet Count 273 K/mcL (140-400); Red Blood Count 3.48 M/mcL (3.82-4.97); Red Cell Distribution Width 12.9 % (11.5-14.5); Segmented Neutrophils % 83.5 %
[2016-03-23] MEDS: Ketorolac 30 MG/ML VIAL IVP PRN (05:44)
[2016-03-23 05:53] LABS: BUN/Creatinine Ratio 10 (6-26); Calcium 8.2 mg/dL (8.6-10.8); Carbon Dioxide 22 mEq/L (19-29); Chloride 107 mEq/L (98-109); Glucose 111 mg/dL (70-99); Osmolality,Calculated 282 (280-300); Potassium 3.7 mEq/L (3.5-4.5); Sodium 137 mEq/L (136-145); eGFR For African Americans > 60 (> 60); eGFR For Non-African Americans > 60 (> 60)
[2016-03-23 05:54] LABS: Blood Urea Nitrogen 5 mg/dL (7-20)
[2016-03-23 06:52] LABS: C-Reactive Protein 255 mg/L (Less than 5)
[2016-03-23] MEDS: Vancomycin 1,000 MG in D5% in Water 250 ML IVPB SCH ×2 (08:43→21:21)
[2016-03-23] MEDS: Famotidine 20 MG TABLET PO SCH ×2 (08:44→21:22)
[2016-03-23] MEDS: Piperacillin/Tazobactam 3.375 GM in D5% in Water (Mini-Bag+) 100 ML IVPB SCH ×2 (08:44→16:16)
--- NOTE | 2016-03-23 09:48 | Internal Med Progress Note ---
Date of Encounter: 03/23/16 Time of Encounter: 09:00 - Assessment and plan (1) Sepsis Current Visit: Yes Status: Acute Assessment and plan: Patient presented with fever, Tmax 102.7, tachycardia, leukocytosis and bilateral pneumonia Fever is slightly improving, she remains tachycardic Blood and sputum cultures have been sent, negative preliminarily Patient with increasing O2 requirements, still spiking fevers despite 48 hrs of appropriate antibiotics CXR with parapneumonic effusion, pulmonologust was consulted stat for thoracentensis Continuous cardiac monitoring and pulse oximetry Will send new blood cultures Escalate antibiotics to Vanco and Zosyn in the meantime Patient has been placed on a ventimask for hypoxia Will repeat CXR a.m after procedure Per verbal order by pulmonolgist, she may require bronchoscopy if she remains symptomatic a.m She remains high risk for septic shock, respiratory failure with need for mechanical ventilation Qualifiers: Sepsis type: sepsis due to unspecified organism Qualified Code(s): A41.9 - Sepsis, unspecified organism (2) Pneumonia Current Visit: Yes Status: Acute Assessment and plan: As above Qualifiers: Pneumonia type: due to unspecified organism Laterality: bilateral Lung location: unspecified part of lung Qualified Code(s): J18.9 - Pneumonia, unspecified organism (3) Acute respiratory failure with hypoxia Current Visit: Yes Status: Acute Assessment and plan: Secondary to bilateral pneumonia with pleural effusion, parapneumonic Continue O2 supplement I have low suspicion for pulmonary edema, Even though BNP is slightly elevated, patient has NO risk factors for cardiac disease, she has no S3, or gallop, she has no JVD She has no pedal edema ECHO has been ordered by Energy Director, will follow Encourage incentive spirometry and ambulation Resume lovenox, (was d/ericka this morning, for procedure) Patient is still tachycardic, will not give scheduled lasix at this time She remains on close observation (4) Parapneumonic effusion Current Visit: Yes Status: Acute Assessment and plan: For thoracentensis Follow cultures, cell count and chemistry (5) Pulmonary edema Current Visit: Yes Status: Suspected Assessment and plan: Suspected, Monitor closely Qualifiers: Chronicity: acute Qualified Code(s): J81.0 - Acute pulmonary edema - Subjective Interval history: 40 Y/O F Patient has no PMH except for prednisone induced psychosis in the past week after she went to an urgent care for URI and was given prednisone She is admitted for management of sepsis secondary to bilateral pneumonia She has worsening hypoxia. 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 on exertion, necessitating breathing treatments and IV lasix Rpt CXR showed significant worsening of bilateral airspace opacities and bilateral pleural effusions L>>R Seen at bedside with RN, and Energy Director - Constitutional Vitals: Temp Pulse Resp BP Pulse Ox 99.4 F 96 26 127/80 88 L 03/23/16 07:22 03/23/16 07:22 03/23/16 07:22 03/23/16 07:22 03/23/16 07:22 General appearance: Present: mild distress, A&O X 3, morbidly obese, pleasant - Head Head exam: Present: atraumatic, normocephalic - Eye Eye exam: Present: PERRL, conjuntiva pink, sclera anicteric Pupils: Present: PERRL - Neck Neck exam general surgery: Present: supple, trachea midline. Absent: lymphadenopathy - Respiratory Additional comments: Decreased air entry on left lung base. No crackles on right or left lung base - Cardiovascular Cardiovascular exam: Present: RRR, +S1, +S2. Absent: diastolic murmur, gallop, rubs, +S3, systolic murmur - GI/Abdominal GI/Abdominal exam: Present: normal bowel sounds, soft, no peritoneal signs. Absent: distended, tenderness - Extremities Exam Extremities exam: Present: warm, radial pulses palpable and symetrical. Absent : calf tenderness, cyanotic, pedal edema - Neurological Exam Neurological exam: Present: CN II-XII intact, oriented X3, no focal deficits. Absent: pronater drift, facial droop, speech deficit - Skin Skin exam: Present: dry, intact Internal Medicine: Result - Labs CBC & Chem 7: 03/23/16 04:39 03/23/16 04:39 Labs: Short CBC 03/23/16 Range/Units 04:39 WBC 17.9 H (4.3-11.1) K/mcL Hgb 10.6 L (11.5-15.4) g/dL Hct 31.5 L (35.3-44.9) % Plt Count 273 (140-400) K/mcL Neutrophils # 15.0 H (1.6-8.9) K/mcL BMP 03/23/16 04:39 Sodium 137 Potassium 3.7 Chloride 107 Carbon Dioxide 22 BUN 5 L Creatinine 0.51 L Glucose 111 H Calcium 8.2 L - ABG Interpretation ABG results: PT/INR, D-dimer D-Dimer 584 ng/mLFEU (0-500) H 03/20/16 05:37 - Impressions Impressions Chest X-Ray 03/23/16 04:52 IMPRESSION: 1. Significant interval worsening of bilateral airspace opacities with bilateral effusions, left greater than right. D/ / 03/23/2016 08:21:45 Shantal Daley MD / ravinder Interpreting Provider: Shantal Daley MD Consult Discharge Plan - Plan Referrals: Roxie Hinojosa CNP [Primary Care Provider] - 03/28/16 10:30 am
[2016-03-23 09:56] LABS: Albumin/Globulin Ratio 0.5 (1.1-2.2); Lactate Dehydrogenase 269 Units/L (159-327)
--- NOTE | 2016-03-23 10:07 | Procedure Note ---
Date of procedure: 03/23/16 Pre-op diagnosis: Pleural Effusion Post-op diagnosis: same Procedure: A time-out was completed verifying correct patient, procedure, site, positioning The patients left side was prepped and draped in a sterile manner after the appropriate infiltration level was confirmed by ultrasound which showed a small to moderate pleural effusion. 1% lidocaine was used anesthetize the surrounding skin. A finder needle was then used to locate fluid and clear yellow fluid was obtained. A 10-blade scalpel used to make the incision. The thoracentesis catheter was then threaded without difficulty. The patient had 500cc of cloudy dark yellow fluid removed. A post-procedure chest x-ray was ordered and the fluid will be sent for several studies. No immediate complications Anesthesia: local Surgeon: Rex Strcikland Estimated blood loss (cc): 0 Pathology: other (pleural fluid) Condition: stable Disposition: no change
[2016-03-23 10:22] LABS: RBC,Pleural Fluid 0.009 M/mcL
[2016-03-23 10:26] LABS: Appearance of Pleural Fl Cloudy (Clear)
[2016-03-23 11:22] LABS: Glucose,Pleural Fluid 54 mg/dL (No Ref Range)
[2016-03-23] MEDS ORDERED: Furosemide 20 MG/2 ML VIAL IVP ONE (12:07)
--- NOTE | 2016-03-23 12:38 | Pulmonology Consult Note ---
Date of Encounter: 03/23/16 Time of Encounter: 12:34 Assessment and Plan (1) Acute respiratory failure Current Visit: Yes Status: Acute This appears secondary to left lower lobe pneumonia complicated by pulmonary edema I suspect she has some component of noncardiogenic pulmonary edema(ARDS) however BNP is also elevated which could be consistent with a component of cardiogenic edema as well Continue Ventimask to keep saturations greater than 89% Encourage incentive spirometry out a bit chair as tolerated Qualifiers: Qualified Code(s): J96.01 - Acute respiratory failure with hypoxia (2) Parapneumonic effusion Current Visit: Yes Status: Acute Status post left thoracentesis which was uncomplicated procedure there was a small amount of residual fluid that could not be obtained however I took out about 500 mL lab values this far after the procedure are consistent with a exudative parapneumonic effusion. Recommend chest x-ray in the morning and complete blood count if clinically white count is still not trending down and chest x-ray shows no improvement would recommend sending to interventional radiology for small bore chest tube placement likely under CT guidance Labs at this time not consistent with empyema (3) Pulmonary edema Current Visit: Yes Status: Acute Suspect cardiogenic and noncardiogenic causes recommend continued diuresis goal 1-2 L as tolerated over the course of the day will need to have daily renal function panel wall actively diuresing and would stop NSAID Qualifiers: Chronicity: acute Qualified Code(s): J81.0 - Acute pulmonary edema (4) Pneumonia Current Visit: Yes Status: Acute Left lower lobe pneumonia in a patient that has no risk factors for multidrug resistant organisms. She has had failure to resolve over the last few days of treatment although white count has come down slightly since admission. She is on broad-spectrum antimicrobials at this time including for MRSA coverage I feel that there is still potential that this could represent an atypical infection including legionella as this has not been fully excluded and a short course of azithromycin that she received would likely not been sufficient to treat lobar legionella. And does recommend adding atypical coverage Would also check urine Legionella and strep pneumo antigen infectious viral panel has been sent off and is pending could consider bronchoscopy in the next 24-48 hours if no improvement in symptoms Given severity of pneumonia the addition of steroids would be appropriate however patient has had side effects from steroid use in the past that she finds exceedingly unpleasant and would be reasonable to hold off for that reason Qualifiers: Pneumonia type: due to unspecified organism Laterality: bilateral Lung location: unspecified part of lung Qualified Code(s): J18.9 - Pneumonia, unspecified organism History of Present Illness Consult date: 03/23/16 Requesting physician: Zoran Paige Reason for consult: pleural effusion Chief complaint: Shortness of breath History of present illness: This is a very pleasant 40-year-old woman with no significant past medical history who presented for approximately 1 week history of increased shortness of breath chest pain cough and general malaise. Had presented to primary care provider last week and was given a course of prednisone and Zpack however symptoms continue to worsen including developing nausea and vomiting and fevers prompting her to present to the emergency room she was noted to have a left lower lobe consolidation on a CTA that was otherwise unremarkable for a filling defect. Since then she has been treated with antimicrobials of various combinations however she has clinically continued to have increasing oxygen requirements and overnight had respiratory distress and responded to Lasix. 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 She does not keep any pets has not traveled recently. She does have many potential sick contacts in the individuals who live at the [employer]. No significant hobbies or environmental or industrial exposures. She enjoys outdoor activities including hiking with some cave exploration on occasion. Past Med Surg Social Fam HX - Past Medical History Medical history: no medical history Psychiatric history: no psych history - Past Surgical History Surgical History: no surgical history - Social History Smoking Status: Never smoker Smokeless Tobacco Status: No Alcohol use: none Drug use: none Medications and Allergies Guaifenesin/Dm/Pseudoephedrine [Capmist Dm Tablet] 1 each PO QID 03/20/16 [ History] Levofloxacin [Levaquin] 500 mg PO DAILY #6 tablet 03/20/16 [Rx] Ondansetron ODT [Zofran ODT] 4 mg PO Q6HR PRN #7 tab 03/20/16 [Rx] PredniSONE 30 mg PO BID 03/20/16 [History] Saccharomyces Boulardii [Florastor] 250 mg PO 1-2XD #10 capsule 03/20/16 [Rx] Allergies prednisone Allergy (Verified 03/20/16 09:02) Shakiness her doctor told her not to take it All Systems: A 10-system review of systems was performed and is negative for pertinent findings except as documented above in the HPI. Physical Examination Vital Signs: Vital Signs, Last 4 Hours Temp Pulse Resp BP Pulse Ox 03/23/16 11:49 100.6 F H 99 18 116/78 97 03/23/16 08:43 90 L General appearance: appears uncomfortable Eyes: nonicteric ENT: oropharynx moist Neck: supple, no lymphadenopathy Effort: very labored Auscultation: bilateral: diminished breath sounds (L>>R), rales Cardiovascular: regular rate and rhythm Gastrointestinal: normoactive bowel sounds, non-tender, tender Integumentary: normal Extremities: no cyanosis, no edema, no clubbing, pink and warm Musculoskeletal: no deformities normal mental status, non-focal exam, motor strength normal and symmetric anxious Results - Laboratory Findings CBC and BMP: 03/23/16 04:39 03/23/16 04:39 PT/INR, D-dimer D-Dimer 584 ng/mLFEU (0-500) H 03/20/16 05:37 Abnormal lab findings: Abnormal lab results WBC 17.9 K/mcL (4.3-11.1) H 03/23/16 04:39 RBC 3.48 M/mcL (3.82-4.97) L 03/23/16 04:39 Hgb 10.6 g/dL (11.5-15.4) L 03/23/16 04:39 Hct 31.5 % (35.3-44.9) L 03/23/16 04:39 Neutrophils # 15.0 K/mcL (1.6-8.9) H 03/23/16 04:39 Monocytes # 1.5 K/mcL (0.0-1.3) H 03/23/16 04:39 Reactive Lymphocytes Present (Not Present) A 03/20/16 05:37 D-Dimer 584 ng/mLFEU (0-500) H 03/20/16 05:37 BUN 5 mg/dL (7-20) L 03/23/16 04:39 Creatinine 0.51 mg/dL (0.57-1.11) L 03/23/16 04:39 Glucose 111 mg/dL (70-99) H 03/23/16 04:39 Calcium 8.2 mg/dL (8.6-10.8) L 03/23/16 04:39 C-Reactive Protein 255 mg/L (Less than 5) H 03/23/16 04:39 B-Natriuretic Peptide 183 pg/mL (0-100) H 03/23/16 04:39 Albumin 2.0 g/dL (3.5-5.0) L 03/23/16 04:39 Globulin 4.0 g/dL (2.4-3.5) H 03/23/16 04:39 Albumin/Globulin Ratio 0.5 (1.1-2.2) L 03/23/16 04:39 Ur Specific [place] 1.006 (1.010-1.025) L 03/20/16 05:30 Urine Ketones 40 mg/dL (Negative) H 03/20/16 05:30 Urine Blood Large (Negative) H 03/20/16 05:30 Urine Microscopic RBC 3-5 per hpf (0-3) H 03/20/16 05:30 Urine Bacteria Moderate per hpf (None-Few) H 03/20/16 05:30 Pleural Appearance Cloudy (Clear) A 03/23/16 10:00 Pleural RBC 0.009 M/mcL (0.000-0.002) H 03/23/16 10:00 Pleural Tot Nuc Cell > 08848 TNC/mcL (0-1000) H 03/23/16 10:00 - Microbiology Findings Microbiology Findings: Microbiology, Last 48 Hours 03/23/16 10:00 Gram Stain - Final Pleural Fluid Body Fluid Culture - Preliminary 03/23/16 05:45 Influenza Types A,B Antigen ([facility]) - Final Nasopharyngeal 03/21/16 09:37 Blood Culture - Preliminary Peripheral Venipuncture No growth. 03/22/16 11:44 Sputum Culture - Preliminary Sputum - Diagnostic Findings Chest x-ray: report reviewed, image reviewed CT scan - chest: report reviewed, image reviewed - Clinical Findings Intake & Output: Intake & Output 03/22/16 03/23/16 03/23/16 23:59 07:59 15:59 Intake Total 250 / 250 Output Total 350 / 350 Balance -350 / -350 250 / 250 Consult Discharge Plan - Plan Referrals: Roxie Hinojosa CNP [Primary Care Provider] - 03/28/16 10:30 am
[2016-03-23] MEDS: *HR* LORazepam 0.5 MG TABLET PO PRN ×2 (13:37→19:27)
[2016-03-23] MEDS: Ondansetron 4 MG/2 ML VIAL IVP PRN (19:32)
[2016-03-23] MEDS: Acetaminophen 325 MG TABLET PO PRN (19:32)
[2016-03-24] MEDS: Piperacillin/Tazobactam 3.375 GM in D5% in Water (Mini-Bag+) 100 ML IVPB SCH ×3 (00:25→15:30)
[2016-03-24] MEDS: Ondansetron 4 MG/2 ML VIAL IVP PRN ×3 (04:30→20:59)
[2016-03-24] MEDS: *HR* HYDROcodone/Acet 5/325 mg TABLET PO PRN ×4 (04:30→21:00)
[2016-03-24 06:55] LABS: BUN/Creatinine Ratio 8 (6-26); Carbon Dioxide 26 mEq/L (19-29); Chloride 100 mEq/L (98-109); Glucose 104 mg/dL (70-99); Osmolality,Calculated 280 (280-300); Potassium 3.1 mEq/L (3.5-4.5); Sodium 136 mEq/L (136-145); eGFR For African Americans > 60 (> 60); eGFR For Non-African Americans > 60 (> 60)
[2016-03-24 07:05] LABS: Blood Urea Nitrogen 5 mg/dL (7-20)
[2016-03-24 07:20] LABS: Basophils % 0.2 %; Eosinophils # 0.1 K/mcL (0.0-0.6); Eosinophils % 0.5 %; Hematocrit 29.8 % (35.3-44.9); Hemoglobin 10.3 g/dL (11.5-15.4); Immature Granulocytes % 2.5 % (0-4); Lymphocytes # 0.9 K/mcL (0.6-4.6); Lymphocytes % 5.1 %; Mean Corpuscular HGB Conc 34.6 g/dL (31.6-35.5); Mean Corpuscular Hemoglobin 30.1 pg (28.0-33.3); Mean Corpuscular Volume 87.1 fL (83.0-100.0); Mean Platelet Volume 9.8 fL (9.4-12.4); Monocytes # 1.9 K/mcL (0.0-1.3); Monocytes % 10.7 %; Platelet Count 347 K/mcL (140-400); Red Blood Count 3.42 M/mcL (3.82-4.97); Red Cell Distribution Width 12.6 % (11.5-14.5)
--- NOTE | 2016-03-24 09:13 | ECHO - Doppler Report ---
Echocardiogram Name: Patrice Gamez Date of Study: 03/24/2016 Date: 1975 Ht: 63.0 in Medical Record#: [id number] Age: 40 Wt: 141.0 lb Gender: Female BSA: 1.67 Order #: [id number] Location: [facility] Room #: 2A12 Reading Physician: Richard Savage DO, NEHAL, SOLEDAD DE OLIVEIRA Sterilization Technician: Adrien Montes RN Ordering Physician: Rex Strickland MD Primary Physician: Roxie Hinojosa CNP Indications: Pulmonary edema Impressions: Technically sub-optimal due to clinical status. Only parasternal views obtained. LVEF 65-70%. Normal LV chamber size, wall thickness and function in the views obtained. Diastolic function not assessed. Right ventricle was not well visualized. In the limited parasternal views obtained, it appeared normal in size and function. No evidence of pulmonary hypertension in the views obtained. No singificant valve disease noted in the limited views obtained. Pleural effusion noted. Findings: Study Quality * Technically sub-optimal due to clinical status. Only parasternal views obtained. ECG Findings * Normal sinus rhythm. Left Ventricle * LVEF 65-70%. * Normal LV chamber size, wall thickness and function in the views obtained. * Diastolic function not assessed. Right Ventricle * Right ventricle was not well visualized. In the limited parasternal views obtained, it appeared normal in size and function. Left Atrium * Normal left atrial size. Right Atrium * Normal right atrial size. Interatrial Septum * Interatrial septum not well evaluated. Aortic Valve * Aortic valve not well visualized. * Grossly normal aortic valve structure. * No aortic regurgitation. * No aortic stenosis. Mitral Valve * Normal mitral valve structure and function. * No mitral stenosis. * No mitral regurgitation. Tricuspid Valve * Normal tricuspid valve structure and function. * Trace tricuspid regurgitation. * No evidence of pulmonary hypertension in the views obtained. Pulmonic Valve * Pulmonic valve not well visualized. * No pulmonic regurgitation. Aorta * Normally sized aortic root. Pericardium * The pericardium appears normal. IVC * The IVC is not well evaluated. Pulmonary Artery * Normal visualized portions of the main pulmonary artery. Pleural Effusion * Pleural effusion noted. History Measurements: BP: 115/ 77 2D Normal Values RVIDd: 2.80 cm <2.7 cm IVSd: .80 cm 0.6 - 1.0 cm LVIDd: 4.50 cm 3.7 - 5.6 cm LVPWd: .80 cm 0.6 - 1.1 cm LVIDs: 3.00 cm 1.5 - 3.6 cm LA: 3.40 cm 2.0 - 4.0cm %FS: 33.30 cm >25 % LVOT Diam: 1.80 cm LA volume: Tricuspid Valve TV Regurg Peak Grad: 24.00mmHg TV Regurg Peak Jayden: 2.43m/sec Updated by Richard Savage DO, NEHAL, ALVINO, SOLEDAD on 03/24/2016 9:08:54 AM electronically signed on 03/24/2016 9:09:22 AM with status of Final [employer] [place]: 1=Normal, 2=Hypokinesis, 3=Akinesis, 4=Dyskinesis, 5=Aneurysmal, 6=Hyperkinetic, X=Not Visualized (Blank)=Missing
[2016-03-24] MEDS: Vancomycin 1,000 MG in D5% in Water 250 ML IVPB SCH ×3 (09:42→23:23)
[2016-03-24] MEDS: *HR* LORazepam 0.5 MG TABLET PO PRN ×3 (09:47→21:00)
[2016-03-24] MEDS: Famotidine 20 MG TABLET PO SCH ×2 (09:47→21:00)
[2016-03-24] MEDS: *HR* Enoxaparin 40 MG/0.4 ML SYRINGE SQ SCH (09:47)
--- NOTE | 2016-03-24 09:54 | Pulmonology Progress Note ---
Date of Encounter: 03/24/16 Time of Encounter: 08:30 Assessment and Plan (1) Pneumonia of left lower lobe due to methicillin-resistant Staphylococcus aureus (MRSA) Current Visit: Yes Status: Acute Continue Vancomycin and will consult cardiothoracic. Will stop Zosyn and pharmacy to dose vancomycin. Need to make sure level is therapeutic. Discussed with patient about her disease as well as to her friend. They were asking about transferring patient to a different hospital and explained to them , I feel management will be the same. (2) Empyema of lung Current Visit: Yes Status: Acute Since there is bacteria in the fluid, it will be defined as empyema and will consult Dr. Berry. (3) Acute respiratory failure with hypoxia Current Visit: Yes Status: Acute Wean off FIO2 to keep SPO2 around 92% and advised patient to do her IS. Subjective Principal diagnosis: Pneumonia Interval history: Patient had thoracentesis which is positive for possibility of MRSA. She still have pain and she is asking for pain medicine. Objective PUL Vital signs: Last Vital Signs Temp 98.9 F 03/24/16 07:28 Pulse 94 03/24/16 07:28 Resp 18 03/24/16 07:28 BP 115/77 03/24/16 07:28 Pulse Ox 93 L 03/24/16 07:28 General appearance: appears uncomfortable Eyes: nonicteric ENT: oropharynx moist Neck: supple Effort: mildly labored Auscultation: left: diminished breath sounds, right: clear Percussion: left: dull Cardiovascular: regular rate and rhythm Gastrointestinal: normoactive bowel sounds Extremities: no cyanosis normal mental status, non-focal exam anxious Results - Laboratory Findings CBC and BMP: 03/24/16 06:32 03/24/16 06:32 PT/INR, D-dimer D-Dimer 584 ng/mLFEU (0-500) H 03/20/16 05:37 Abnormal lab findings: Abnormal lab results WBC 17.3 K/mcL (4.3-11.1) H 03/24/16 06:32 RBC 3.42 M/mcL (3.82-4.97) L 03/24/16 06:32 Hgb 10.3 g/dL (11.5-15.4) L 03/24/16 06:32 Hct 29.8 % (35.3-44.9) L 03/24/16 06:32 Neutrophils # 14.0 K/mcL (1.6-8.9) H 03/24/16 06:32 Monocytes # 1.9 K/mcL (0.0-1.3) H 03/24/16 06:32 Reactive Lymphocytes Present (Not Present) A 03/20/16 05:37 D-Dimer 584 ng/mLFEU (0-500) H 03/20/16 05:37 Potassium 3.1 mEq/L (3.5-4.5) L 03/24/16 06:32 BUN 5 mg/dL (7-20) L 03/24/16 06:32 Glucose 104 mg/dL (70-99) H 03/24/16 06:32 Calcium 8.0 mg/dL (8.6-10.8) L 03/24/16 06:32 C-Reactive Protein 255 mg/L (Less than 5) H 03/23/16 04:39 B-Natriuretic Peptide 183 pg/mL (0-100) H 03/23/16 04:39 Albumin 2.0 g/dL (3.5-5.0) L 03/23/16 04:39 Globulin 4.0 g/dL (2.4-3.5) H 03/23/16 04:39 Albumin/Globulin Ratio 0.5 (1.1-2.2) L 03/23/16 04:39 Ur Specific [place] 1.006 (1.010-1.025) L 03/20/16 05:30 Urine Ketones 40 mg/dL (Negative) H 03/20/16 05:30 Urine Blood Large (Negative) H 03/20/16 05:30 Urine Microscopic RBC 3-5 per hpf (0-3) H 03/20/16 05:30 Urine Bacteria Moderate per hpf (None-Few) H 03/20/16 05:30 Pleural Appearance Cloudy (Clear) A 03/23/16 10:00 Pleural RBC 0.009 M/mcL (0.000-0.002) H 03/23/16 10:00 Pleural Tot Nuc Cell > 18217 TNC/mcL (0-1000) H 03/23/16 10:00 - Microbiology Findings Microbiology Findings: Microbiology, Last 48 Hours 03/23/16 10:00 Gram Stain - Final Pleural Fluid Body Fluid Culture - Preliminary Gram Positive Cocci 03/22/16 11:44 Sputum Culture - Preliminary Sputum 03/23/16 14:50 Legionella Antigen - Final Urine,Clean Catch 03/23/16 14:50 Streptococcus pneumoniae Antigen (M - Final Urine,Catheterized 03/23/16 05:45 Influenza Types A,B Antigen (MEAGAN) - Final Nasopharyngeal 03/21/16 09:37 Blood Culture - Preliminary Peripheral Venipuncture No growth. - Diagnostic Findings Chest x-ray: report reviewed, image reviewed - Clinical Findings Intake & Output: Intake & Output 03/23/16 03/24/16 03/24/16 23:59 07:59 15:59 Intake Total 350 / 350 100 / 100 Output Total 600 / 600 500 / 500 Balance -250 / -250 -400 / -400 Weight 64 kg Consult Discharge Plan - Plan Referrals: Roxie Hinojosa CNP [Primary Care Provider] - 03/28/16 10:30 am
--- NOTE | 2016-03-24 09:59 | Internal Med Progress Note ---
Date of Encounter: 03/24/16 Time of Encounter: 09:00 - Assessment and plan (1) Sepsis Current Visit: Yes Status: Acute Assessment and plan: Patient presented with fever, Tmax 102.7, tachycardia, leukocytosis and bilateral pneumonia She is now afebrile Blood and sputum cultures have been sent, negative Repeat blood culture 03/23/16 due to persistent fever is pending Influenza negative s/p thoracentensis 03/23 with pleural fluid growing MRSA She had received Cef/Azithromycin for 2 days and was changed to Vanco and Zosyn 2 a.m for broader coverage due to persistent fever Based on result of pleural fluid, will d/c Zosyn Continue Vanco-pharmacy is dosing Follow Vanco trough Follow final sensitivity , suspect community acquired MRSA O2 requirement is improving Leukocytosis is beginning to improve She remains high risk for septic shock, respiratory failure with need for mechanical ventilation Qualifiers: Sepsis type: methicillin resistant Staphylococcus aureus Qualified Code(s) : A41.02 - Sepsis due to Methicillin resistant Staphylococcus aureus (2) Pneumonia Current Visit: Yes Status: Acute Assessment and plan: As above Qualifiers: Pneumonia type: due to methicillin-resistant Staphylococcus aureus (MRSA) Laterality: bilateral Lung location: unspecified part of lung Qualified Code (s): J15.212 - Pneumonia due to Methicillin resistant Staphylococcus aureus (3) Acute respiratory failure with hypoxia Current Visit: Yes Status: Acute Assessment and plan: Secondary to bilateral MRSA pneumonia with empyema Continue O2 supplement I have low suspicion for pulmonary edema, Even though BNP is slightly elevated, patient has NO risk factors for cardiac disease, she has no S3, or gallop, she has no JVD She has no pedal edema ECHO with LVEF 65-70%, otherwise normal Encourage incentive spirometry and ambulation Oxygenation has improved significantly and tachycardia has resolved (4) Parapneumonic effusion Current Visit: Yes Status: Acute Assessment and plan: Empyema thoracis, with MRSA Thoracic surgery has been consulted by Bagging Machine Operator (5) Pulmonary edema Current Visit: Yes Status: Resolved Assessment and plan: Ruled out Qualifiers: Chronicity: acute Qualified Code(s): J81.0 - Acute pulmonary edema - Subjective Interval history: 40 Y/O F Patient has no PMH except for prednisone induced psychosis in the past week after she went to an urgent care for URI and was given prednisone She is admitted for management of sepsis secondary to bilateral pneumonia, complicated by parapneumonic effusion/empyema and acute hypoxic respiratory failure Pleural fluid growing MRSA, Blood and sputum culture prelim negative, repeat blood culture pending She is seen at bedside with her friend She feels much better and no new complains Oxygen requirement is decreasing gradually, leukocytosis is improving - Constitutional Vitals: Temp Pulse Resp BP Pulse Ox 98.9 F 94 18 115/77 93 L 03/24/16 07:28 03/24/16 07:28 03/24/16 07:28 03/24/16 07:28 03/24/16 07:28 General appearance: Present: A&O X 3, morbidly obese, pleasant, no acute distress - Head Head exam: Present: atraumatic, normocephalic - Eye Eye exam: Present: PERRL, conjuntiva pink, sclera anicteric Pupils: Present: PERRL - Neck Neck exam general surgery: Present: supple, trachea midline. Absent: lymphadenopathy - Respiratory Respiratory exam: Present: decreased breath sounds (Left lung base), rhonchi ( Left lung base) - Cardiovascular Cardiovascular exam: Present: RRR, +S1, +S2. Absent: diastolic murmur, gallop, JVD, rubs, +S3, systolic murmur, tachycardia - GI/Abdominal GI/Abdominal exam: Present: normal bowel sounds, soft, no peritoneal signs. Absent: distended, tenderness - Extremities Exam Extremities exam: Present: warm, radial pulses palpable and symetrical. Absent : calf tenderness, cyanotic, pedal edema - Neurological Exam Neurological exam: Present: CN II-XII intact, oriented X3, no focal deficits. Absent: pronater drift, facial droop, speech deficit - Skin Skin exam: Present: dry, intact Internal Medicine: Result - Labs CBC & Chem 7: 03/24/16 06:32 03/24/16 06:32 Labs: Short CBC 03/24/16 Range/Units 06:32 WBC 17.3 H (4.3-11.1) K/mcL Hgb 10.3 L (11.5-15.4) g/dL Hct 29.8 L (35.3-44.9) % Plt Count 347 (140-400) K/mcL Neutrophils # 14.0 H (1.6-8.9) K/mcL BMP 03/23/16 03/24/16 04:39 06:32 Sodium 137 136 Potassium 3.7 3.1 L Chloride 107 100 Carbon Dioxide 22 26 BUN 5 L 5 L Creatinine 0.51 L 0.65 Glucose 111 H 104 H Calcium 8.2 L 8.0 L Liver Function 03/23/16 Range/Units 04:39 Albumin 2.0 L (3.5-5.0) g/dL - ABG Interpretation ABG results: PT/INR, D-dimer D-Dimer 584 ng/mLFEU (0-500) H 03/20/16 05:37 - Impressions Impressions Chest X-Ray 03/23/16 04:52 IMPRESSION: 1. Significant interval worsening of bilateral airspace opacities with bilateral effusions, left greater than right. D/ / 03/23/2016 08:21:45 Shantal Daley MD / ravinder Interpreting Provider: Shantal Daley MD Chest X-Ray 03/23/16 09:27 IMPRESSION: Bilateral patchy pulmonary infiltrates, more prominent than on the prior exam. Bilateral pleural effusions, significantly larger on the left than on the right. D/ / 03/23/2016 11:02:49 Kael Casanova MD / [email or web address] Interpreting Provider: Kael Casanova MD Chest X-Ray 03/24/16 07:00 IMPRESSION: 1. No lines or tubes. 2. Stable cardiopulmonary status including patchy airspace opacities with a more confluent opacity in the left base. Moderate left and small right pleural effusion also unchanged. D/ / 03/24/2016 07:18:11 Shantal Daley MD / [email or web address] Interpreting Provider: Shantal Daley MD Consult Discharge Plan - Plan Referrals: Roxie Hinojosa CNP [Primary Care Provider] - 03/28/16 10:30 am
--- NOTE | 2016-03-24 14:42 | Cardiothoracic Consult Note ---
Date of Encounter: 03/24/16 Time of Encounter: 14:36 Assessment and Plan (1) Pneumonia Current Visit: Yes Status: Acute Patient is a 40-year-old otherwise healthy lady who is ability to [facility] with multi lobar pneumonia. The preliminary test results reveal that she may have a MRSA pneumonia. The admission chest x-ray and chest CT showed consolidation in both the left lingula and left lower lobe and a small left pleural effusion. The patient has subsequently developed a moderate left pleural effusion and underwent thoracentesis chest today. The repeat chest x-ray shows dense consolidation of the left lower lobe. At this time the patient has no evidence of empyema and operative intervention is not indicated. I would continue to follow the disease process with daily chest x- rays. If the patient does develop a left pleural empyema, she will possibly require a left thoracotomy and decortication. The assessment and plan as outlined above was discussed with the patient and/or family members who expressed understanding and agreement. All questions were answered. Qualifiers: Pneumonia type: due to methicillin-resistant Staphylococcus aureus (MRSA) Laterality: bilateral Lung location: unspecified part of lung Qualified Code (s): J15.212 - Pneumonia due to Methicillin resistant Staphylococcus aureus - History of Present Illness Consult date: 03/24/16 Requesting physician: Monae Forman Consult reason: Multi-lobar pneumonia. Chief complaint: Left sided chest pain, shortness of breath. History of present illness: Ms. Gamez is a 40 year old otherwise healthy lady who developed a severe headache and nasal congestion on March 13, 2016. She was evaluated at a local urgent care center and treated with oral antibiotics, a decongestant, and prednisone. The prednisone caused the patient to "not feel right" and she stopped the steroid following day. She was reevaluated by her primary care physician on Thursday, March 17, 2016. At that time the patient's headache had resolved; however, she continued to experience nasal congestion and had developed a slight nonproductive cough. Subsequently the patient developed intense nausea and vomiting and was evaluated at [facility] on Saturday, April 16, 2016. A chest x-ray showed a left lower lobe pneumonia and this was confirmed by chest CT. The patient had left lingular and left lower lobe consolidation as well as right middle lobe atelectasis. He trace pleural effusion was also seen. She was admitted for antibiotic therapy. During the hospitalization the patient has developed a left pleural effusion and underwent thoracentesis yesterday. The procedure resulted in drainage of 500 mL of a cloudy, dark fluid which was sent for culture. I have been asked to evaluate the patient for further surgical options. Past Med Surg Social Fam HX - Past Medical History Medical history: no medical history Psychiatric history: no psych history - Past Surgical History Surgical History: no surgical history - Social History Smoking Status: Never smoker Smokeless Tobacco Status: No Alcohol use: none Drug use: none Occupational status: employed Current living situation: Home - Independent Activity Level: Independent ambulation Recent Out of Country Travel Within the Last 8 Weeks: No Exposure or Possible Exposure to Illness During Travel: No Medications and Allergies Guaifenesin/Dm/Pseudoephedrine [Capmist Dm Tablet] 1 each PO QID 03/20/16 [ History] Levofloxacin [Levaquin] 500 mg PO DAILY #6 tablet 03/20/16 [Rx] Ondansetron ODT [Zofran ODT] 4 mg PO Q6HR PRN #7 tab 03/20/16 [Rx] PredniSONE 30 mg PO BID 03/20/16 [History] Saccharomyces Boulardii [Florastor] 250 mg PO 1-2XD #10 capsule 03/20/16 [Rx] Allergies prednisone Allergy (Verified 03/20/16 09:02) Shakiness her doctor told her not to take it All Systems Review: A 10-system review of systems was performed and is negative for pertinent findings except as documented above in the HPI. - Constitutional Constitutional: chills, fatigue, fever(s), headache(s), lethargy, malaise - Respiratory Respiratory: cough, dyspnea, chest wall pain Physical Examination Vital Signs, Last 4 Hours Temp Pulse Resp BP Pulse Ox 03/24/16 11:32 100.2 F H 108 19 143/82 91 L General: Conversant, No Apparent Distress HEENT: Atraumatic, Normocephaly, Trachea midline Neck: No JVD, Normal carotid pulses Cardiac: Reg Rate and Rhythm, Normal S1 and S2, No Murmur Lungs: Normal Breath Sounds (Right lung zepeda.), Decreased breath sounds (Left lung zepeda, particularly left base and left lateral zepeda.) Neuro: Alert and responsive, No focal deficits noted Vascular: Normal capillary refill Skin: No rashes noted on visualized skin Extremities: No Clubbing, No Cyanosis, No Edema, Normal Pulses Results 03/24/16 06:32 03/24/16 06:32 Lab Results, Last 24 hours 03/24/16 02 06:32 06:32 WBC 17.3 H Hgb 10.3 L Hct 29.8 L Plt Count 347 Sodium 136 Potassium 3.1 L Chloride 100 Carbon Dioxide 26 BUN 5 L Creatinine 0.65 Glucose 104 H Calcium 8.0 L - Imaging Chest Xray: image reviewed (Left pleural effusion, moderate.) Consult Discharge Plan - Plan Referrals: Roxie Hinojosa CNP [Primary Care Provider] - 03/28/16 10:30 am (Please follow up as schedule!!!)
[2016-03-24] MEDS ORDERED: Saline Nasal Spray 44 ML BOTTLE NS PRN (18:17)
[2016-03-24] MEDS: GuaiFENesin/Codeine Oral Soln 5 ML UDC PO PRN (20:59)
[2016-03-24] MEDS: Acetaminophen 325 MG TABLET PO PRN (21:00)
[2016-03-24] MEDS ORDERED: 0.9 % Sodium Chloride 250 ML ONE (21:24)
[2016-03-25] MEDS: Piperacillin/Tazobactam 3.375 GM in D5% in Water (Mini-Bag+) 100 ML IVPB SCH ×2 (00:44→09:42)
[2016-03-25] MEDS: *HR* LORazepam 0.5 MG TABLET PO PRN ×4 (02:56→21:51)
[2016-03-25] MEDS: *HR* HYDROcodone/Acet 5/325 mg TABLET PO PRN ×4 (02:56→21:51)
[2016-03-25] MEDS: Vancomycin 1,000 MG in D5% in Water 250 ML IVPB SCH ×3 (06:02→21:53)
[2016-03-25 06:33] LABS: Basophils # 0.1 K/mcL (0.0-0.2); Basophils % 0.3 %; Eosinophils # 0.1 K/mcL (0.0-0.6); Eosinophils % 0.6 %; Hematocrit 31.7 % (35.3-44.9); Hemoglobin 10.7 g/dL (11.5-15.4); Immature Granulocytes % 2.6 % (0-4); Lymphocytes # 1.5 K/mcL (0.6-4.6); Lymphocytes % 8.5 %; Mean Corpuscular HGB Conc 33.8 g/dL (31.6-35.5); Mean Corpuscular Hemoglobin 30.5 pg (28.0-33.3); Mean Corpuscular Volume 90.3 fL (83.0-100.0); Mean Platelet Volume 9.6 fL (9.4-12.4); Monocytes # 1.8 K/mcL (0.0-1.3); Monocytes % 10.5 %; Neutrophils # 13.2 K/mcL (1.6-8.9); Platelet Count 399 K/mcL (140-400); Red Blood Count 3.51 M/mcL (3.82-4.97); Red Cell Distribution Width 13.2 % (11.5-14.5); Segmented Neutrophils % 77.5 %
[2016-03-25] MEDS ORDERED: Aminoglycoside Consult 1 EACH MC ONE (08:01)
[2016-03-25] MEDS: Ondansetron 4 MG/2 ML VIAL IVP PRN ×2 (09:41→21:51)
[2016-03-25] MEDS: Famotidine 20 MG TABLET PO SCH ×2 (09:41→21:51)
[2016-03-25] MEDS: *HR* Enoxaparin 40 MG/0.4 ML SYRINGE SQ SCH (09:42)
--- NOTE | 2016-03-25 09:49 | Cardiothoracic Progress Note ---
Date of Encounter: 03/25/16 Time of Encounter: 09:15 - Assessment and plan (1) Pneumonia Current Visit: Yes Status: Acute The patient continues to improve on intravenous antibiotics. I will sign off the patient's care at this point; however, please reconsult me if she should require operative intervention. The assessment and plan as outlined above was discussed with the patient and/or family members who expressed understanding and agreement. All questions were answered. Qualifiers: Pneumonia type: due to methicillin-resistant Staphylococcus aureus (MRSA) Laterality: bilateral Lung location: unspecified part of lung Qualified Code (s): J15.212 - Pneumonia due to Methicillin resistant Staphylococcus aureus - Subjective Interval history: The patient is breathing comfortably this morning. She still complains of left lateral flank pain. Vital Signs, Last 4 Hours Temp Pulse Resp BP Pulse Ox 03/25/16 08:53 97.8 F 98 16 114/74 94 L Oxgyen Flow Rate Oxygen Flow Rate (LPM) 4 Weight 03/23/16 03/24/16 03/25/16 23:59 23:59 23:59 Weight 64 kg 68.039 kg - Physical Examination General: Conversant, No Apparent Distress Neck: No JVD, Normal carotid pulses Cardiac: Reg Rate and Rhythm, Normal S1 and S2, No Murmur Lungs: Normal Breath Sounds, No Wheeze, Rales, Rhonchi Neuro: Alert and responsive, No focal deficits noted Vascular: Normal capillary refill Extremities: No Clubbing, No Cyanosis, No Edema, Normal Pulses - Labs 03/25/16 06:00 03/24/16 06:32 Lab Results, Last 24 hours 03/25/16 06:00 WBC 17.1 H Hgb 10.7 L Hct 31.7 L Plt Count 399 Consult Discharge Plan - Plan Referrals: Roxie Hinojosa CNP [Primary Care Provider] - 03/28/16 10:30 am (Please follow up as schedule!!!)
--- NOTE | 2016-03-25 12:36 | Internal Med Progress Note ---
Date of Encounter: 03/25/16 Time of Encounter: 12:30 - Assessment and plan (1) Pneumonia of left lower lobe due to methicillin-resistant Staphylococcus aureus (MRSA) Current Visit: Yes Status: Acute Assessment and plan: Continue IV vancomycin. Discussed with nursing staff and renal social worker. We will look and see if patient would qualify for oral Zyvox treatment as outpatient. If not, she will need IV vancomycin to complete treatment for 14 days. Leukocytosis stable but persistent. Moderate risk for complications. (2) Empyema of lung Current Visit: Yes Status: Acute Assessment and plan: Cardiothoracic surgery consulted. Recommended no surgical intervention at this time as patient is clinically getting better. (3) Acute respiratory failure with hypoxia Current Visit: Yes Status: Acute (4) Sepsis Current Visit: Yes Status: Acute Assessment and plan: Negative blood cultures. On IV vancomycin for sepsis from MRSA pneumonia. Qualifiers: Sepsis type: methicillin resistant Staphylococcus aureus Qualified Code(s) : A41.02 - Sepsis due to Methicillin resistant Staphylococcus aureus - Subjective Interval history: Patient is feeling better. Complains of intermittent left-sided pain especially in the lateral chest wall and in her back. Improves with oral pain medications. Denies any hemoptysis. No nausea or vomiting. - Constitutional Vitals: Temp Pulse Resp BP Pulse Ox 97.8 F 98 16 114/74 94 L 03/25/16 08:53 03/25/16 08:53 03/25/16 08:53 03/25/16 08:53 03/25/16 08:53 General appearance: Present: cooperative, A&O X 3, morbidly obese, pleasant, no acute distress - Neck Neck exam general surgery: Present: supple, trachea midline. Absent: lymphadenopathy - Respiratory Respiratory exam: Present: chest wall tenderness (In left lateral chest wall), CTAB. Absent: accessory muscle use, rales, rhonchi, wheezes - Cardiovascular Cardiovascular exam: Present: RRR, +S1, +S2. Absent: diastolic murmur, gallop, rubs, systolic murmur - GI/Abdominal GI/Abdominal exam: Present: normal bowel sounds, soft, no peritoneal signs. Absent: distended, tenderness - Extremities Exam Extremities exam: Present: warm, radial pulses palpable and symetrical. Absent : calf tenderness, cyanotic, pedal edema - Neurological Exam Neurological exam: Present: CN II-XII intact, oriented X3, no focal deficits. Absent: facial droop, speech deficit - Skin Skin exam: Present: dry, intact Internal Medicine: Result - Labs CBC & Chem 7: 03/25/16 06:00 03/24/16 06:32 Labs: Short CBC 03/25/16 Range/Units 06:00 WBC 17.1 H (4.3-11.1) K/mcL Hgb 10.7 L (11.5-15.4) g/dL Hct 31.7 L (35.3-44.9) % Plt Count 399 (140-400) K/mcL Neutrophils # 13.2 H (1.6-8.9) K/mcL - ABG Interpretation ABG results: PT/INR, D-dimer D-Dimer 584 ng/mLFEU (0-500) H 03/20/16 05:37 - Impressions Impressions Chest X-Ray 03/24/16 07:00 IMPRESSION: 1. No lines or tubes. 2. Stable cardiopulmonary status including patchy airspace opacities with a more confluent opacity in the left base. Moderate left and small right pleural effusion also unchanged. D/ / 03/24/2016 07:18:11 Shantal Daley MD / trudi Interpreting Provider: Shantal Daley MD Consult Discharge Plan - Plan Referrals: Roxie Hinojosa CNP [Primary Care Provider] - 03/28/16 10:30 am (Please follow up as schedule!!!) Prescriptions: Linezolid [Zyvox] 600 mg PO BID #22 tablet - Attending Attestation This document has been at least partially created by [employer] recognition technology by Dr. Rosado. Errors in grammar, wording or other phrases may exist. If errors are found after the documentation is signed, they will be addressed individually in the addendum section of this document when appropriate.
[2016-03-25] MEDS: Acetaminophen 325 MG TABLET PO PRN ×2 (16:26→22:19)
[2016-03-25] MEDS: GuaiFENesin/Codeine Oral Soln 5 ML UDC PO PRN (19:46)
--- NOTE | 2016-03-25 22:03 | Pulmonology Progress Note ---
Date of Encounter: 03/25/16 Time of Encounter: 12:30 Assessment and Plan (1) Pneumonia of left lower lobe due to methicillin-resistant Staphylococcus aureus (MRSA) Current Visit: Yes Status: Acute Continue Vancomycin and will consult cardiothoracic. Will stop Zosyn and pharmacy to dose vancomycin. Need to make sure level is therapeutic. Discussed with patient about her disease as well as to her friend. They were asking about transferring patient to a different hospital and explained to them , I feel management will be the same. 03/25 I discussed with primary team to consider to change Vancomycin to Zyvox, which will be easier for patient to transition to oral when she is discharged home. I explained to patient this will take few weeks before she feels better Explained to pharmacist to keep monitoring vancomycin level to be therapeutic. (2) Empyema of lung Current Visit: Yes Status: Acute Since there is bacteria in the fluid, it will be defined as empyema and will consult Dr. Berry. 03/25 discussed plan of care with Dr. Berry (3) Acute respiratory failure with hypoxia Current Visit: Yes Status: Acute Wean off FIO2 to keep SPO2 around 92% and advised patient to do her IS. Subjective Principal diagnosis: Pneumonia Interval history: Patient still have dyspnea and difficultly breathing. Objective PUL Vital signs: Last Vital Signs Temp 98.3 F 03/25/16 19:59 Pulse 95 03/25/16 19:59 Resp 18 03/25/16 19:59 BP 115/76 03/25/16 19:59 Pulse Ox 91 L 03/25/16 19:59 General appearance: no acute distress Eyes: nonicteric ENT: oropharynx moist Neck: supple Effort: normal Auscultation: left: diminished breath sounds, right: clear Percussion: left: dull, right: not dull Cardiovascular: regular rate and rhythm Gastrointestinal: normoactive bowel sounds Extremities: no cyanosis normal mental status, non-focal exam mood appropriate Results - Laboratory Findings CBC and BMP: 03/25/16 06:00 03/24/16 06:32 PT/INR, D-dimer D-Dimer 584 ng/mLFEU (0-500) H 03/20/16 05:37 Abnormal lab findings: Abnormal lab results WBC 17.1 K/mcL (4.3-11.1) H 03/25/16 06:00 RBC 3.51 M/mcL (3.82-4.97) L 03/25/16 06:00 Hgb 10.7 g/dL (11.5-15.4) L 03/25/16 06:00 Hct 31.7 % (35.3-44.9) L 03/25/16 06:00 Neutrophils # 13.2 K/mcL (1.6-8.9) H 03/25/16 06:00 Monocytes # 1.8 K/mcL (0.0-1.3) H 03/25/16 06:00 Reactive Lymphocytes Present (Not Present) A 03/20/16 05:37 D-Dimer 584 ng/mLFEU (0-500) H 03/20/16 05:37 Potassium 3.1 mEq/L (3.5-4.5) L 03/24/16 06:32 BUN 5 mg/dL (7-20) L 03/24/16 06:32 Glucose 104 mg/dL (70-99) H 03/24/16 06:32 Calcium 8.0 mg/dL (8.6-10.8) L 03/24/16 06:32 C-Reactive Protein 255 mg/L (Less than 5) H 03/23/16 04:39 B-Natriuretic Peptide 183 pg/mL (0-100) H 03/23/16 04:39 Albumin 2.0 g/dL (3.5-5.0) L 03/23/16 04:39 Globulin 4.0 g/dL (2.4-3.5) H 03/23/16 04:39 Albumin/Globulin Ratio 0.5 (1.1-2.2) L 03/23/16 04:39 Ur Specific [place] 1.006 (1.010-1.025) L 03/20/16 05:30 Urine Ketones 40 mg/dL (Negative) H 03/20/16 05:30 Urine Blood Large (Negative) H 03/20/16 05:30 Urine Microscopic RBC 3-5 per hpf (0-3) H 03/20/16 05:30 Urine Bacteria Moderate per hpf (None-Few) H 03/20/16 05:30 Pleural Appearance Cloudy (Clear) A 03/23/16 10:00 Pleural RBC 0.009 M/mcL (0.000-0.002) H 03/23/16 10:00 Pleural Tot Nuc Cell > 73928 TNC/mcL (0-1000) H 03/23/16 10:00 Vancomycin Trough 20.9 mcg/mL (10-20) H* 03/25/16 19:38 - Microbiology Findings Microbiology Findings: Microbiology, Last 48 Hours 03/23/16 07:54 Blood Culture - Preliminary Peripheral Venipuncture No growth. 03/23/16 10:00 Gram Stain - Final Pleural Fluid Body Fluid Culture - Final Methicillin Resistant S.aureus 03/22/16 11:44 Sputum Culture - Preliminary Sputum Yeast Species - Clinical Findings Intake & Output: Intake & Output 03/25/16 03/25/16 03/25/16 07:59 15:59 23:59 Intake Total 100 / 100 600 / 600 Output Total 750 / 750 Balance 100 / 100 -150 / -150 Weight 68.039 kg Consult Discharge Plan - Plan Referrals: Roxie Hinojosa CNP [Primary Care Provider] - 03/28/16 10:30 am (Please follow up as schedule!!!) Prescriptions: Linezolid [Zyvox] 600 mg PO BID #22 tablet
[2016-03-26] MEDS: GuaiFENesin/Codeine Oral Soln 5 ML UDC PO PRN (03:00)
[2016-03-26] MEDS: *HR* LORazepam 0.5 MG TABLET PO PRN ×3 (03:03→20:48)
[2016-03-26] MEDS: Acetaminophen 325 MG TABLET PO PRN ×2 (03:07→15:58)
[2016-03-26] MEDS: Ondansetron 4 MG/2 ML VIAL IVP PRN ×4 (03:08→20:47)
[2016-03-26] MEDS: *HR* HYDROcodone/Acet 5/325 mg TABLET PO PRN ×4 (03:16→20:48)
[2016-03-26] MEDS: Vancomycin 1,000 MG in D5% in Water 250 ML IVPB SCH (05:31)
[2016-03-26 07:05] LABS: Basophils # 0.1 K/mcL (0.0-0.2); Basophils % 0.5 %; Eosinophils # 0.3 K/mcL (0.0-0.6); Eosinophils % 1.4 %; Hematocrit 32.8 % (35.3-44.9); Hemoglobin 11.1 g/dL (11.5-15.4); Immature Granulocytes % 2.8 % (0-4); Lymphocytes # 1.7 K/mcL (0.6-4.6); Lymphocytes % 8.8 %; Mean Corpuscular HGB Conc 33.8 g/dL (31.6-35.5); Mean Corpuscular Hemoglobin 30.7 pg (28.0-33.3); Mean Corpuscular Volume 90.6 fL (83.0-100.0); Mean Platelet Volume 9.7 fL (9.4-12.4); Monocytes # 1.6 K/mcL (0.0-1.3); Monocytes % 8.7 %; Neutrophils # 14.8 K/mcL (1.6-8.9); Platelet Count 496 K/mcL (140-400); Red Blood Count 3.62 M/mcL (3.82-4.97); Red Cell Distribution Width 13.2 % (11.5-14.5); Segmented Neutrophils % 77.8 %
[2016-03-26 07:13] LABS: BUN/Creatinine Ratio 8 (6-26); Blood Urea Nitrogen 7 mg/dL (7-20); Calcium 8.9 mg/dL (8.6-10.8); Carbon Dioxide 24 mEq/L (19-29); Chloride 101 mEq/L (98-109); Glucose 98 mg/dL (70-99); Osmolality,Calculated 284 (280-300); Potassium 3.6 mEq/L (3.5-4.5); Sodium 138 mEq/L (136-145); eGFR For African Americans > 60 (> 60); eGFR For Non-African Americans > 60 (> 60)
[2016-03-26] MEDS: Famotidine 20 MG TABLET PO SCH (08:27)
[2016-03-26] MEDS: *HR* Enoxaparin 40 MG/0.4 ML SYRINGE SQ SCH (08:27)
--- NOTE | 2016-03-26 09:05 | Internal Med Progress Note ---
Date of Encounter: 03/26/16 Time of Encounter: 08:35 - Assessment and plan (1) Pneumonia of left lower lobe due to methicillin-resistant Staphylococcus aureus (MRSA) Current Visit: Yes Status: Acute Assessment and plan: Leukocytosis worsened today. Will change antibiotic to Zyvox intravenously. Discussed with pulmonology. If leukocytosis further worsens, we will repeat CT scan of the chest tomorrow. Discussed with patient. Currently in agreement with plan. high risk for complications. (2) Empyema of lung Current Visit: Yes Status: Acute Assessment and plan: No surgical intervention needed at this time. CT surgery has signed off. Will repeat CT scan if leukocytosis worsens further. (3) Acute respiratory failure with hypoxia Current Visit: Yes Status: Acute Assessment and plan: due to MRSA pneumonia. Currently on 4 L nasal cannula and saturating at 96%. Will wean FiO2 as tolerated. (4) Sepsis Current Visit: Yes Status: Acute Assessment and plan: from MRSA pneumonia. Blood cultures have been negative. Qualifiers: Sepsis type: methicillin resistant Staphylococcus aureus Qualified Code(s) : A41.02 - Sepsis due to Methicillin resistant Staphylococcus aureus - Subjective Interval history: Patient is able to breathe better with lesser pain noted with taking deep breaths. Continues to have low-grade fever overnight with temperature of 99.5. Saturating well on 4 L nasal cannula. Continues to have cough. No hemoptysis. No chills or rigors - Constitutional Vitals: Temp Pulse Resp BP Pulse Ox 99.2 F 101 17 126/81 96 03/26/16 07:48 03/26/16 07:48 03/26/16 07:48 03/26/16 07:48 03/26/16 07:48 General appearance: Present: cooperative, mild distress, A&O X 3, morbidly obese , pleasant, answers questions appropriately - Respiratory Respiratory exam: Present: decreased breath sounds (Diminished at left base ), CTAB. Absent: accessory muscle use, rales, rhonchi, wheezes - Cardiovascular Cardiovascular exam: Present: RRR, +S1, +S2. Absent: diastolic murmur, gallop, rubs, systolic murmur - GI/Abdominal GI/Abdominal exam: Present: normal bowel sounds, soft, no peritoneal signs. Absent: distended, tenderness - Neurological Exam Neurological exam: Present: CN II-XII intact, oriented X3, no focal deficits. Absent: pronater drift, facial droop, speech deficit - Skin Skin exam: Present: dry, intact Internal Medicine: Result - Labs CBC & Chem 7: 03/26/16 06:24 03/26/16 06:24 Labs: Short CBC 03/26/16 Range/Units 06:24 WBC 19.0 H (4.3-11.1) K/mcL Hgb 11.1 L (11.5-15.4) g/dL Hct 32.8 L (35.3-44.9) % Plt Count 496 H (140-400) K/mcL Neutrophils # 14.8 H (1.6-8.9) K/mcL BMP 03/26/16 06:24 Sodium 138 Potassium 3.6 Chloride 101 Carbon Dioxide 24 BUN 7 Creatinine 0.87 Glucose 98 Calcium 8.9 - ABG Interpretation ABG results: PT/INR, D-dimer D-Dimer 584 ng/mLFEU (0-500) H 03/20/16 05:37 Consult Discharge Plan - Plan Referrals: Roxie Hinojosa CNP [Primary Care Provider] - 03/28/16 10:30 am (Please follow up as schedule!!!) Prescriptions: Linezolid [Zyvox] 600 mg PO BID #22 tablet - Attending Attestation This document has been at least partially created by [employer] recognition technology by Dr. Rosado. Errors in grammar, wording or other phrases may exist. If errors are found after the documentation is signed, they will be addressed individually in the addendum section of this document when appropriate.
--- NOTE | 2016-03-26 09:43 | Pulmonology Progress Note ---
Date of Encounter: 03/26/16 Time of Encounter: 08:50 Assessment and Plan (1) Pneumonia of left lower lobe due to methicillin-resistant Staphylococcus aureus (MRSA) Current Visit: Yes Status: Acute Continue Vancomycin and will consult cardiothoracic. Will stop Zosyn and pharmacy to dose vancomycin. Need to make sure level is therapeutic. Discussed with patient about her disease as well as to her friend. They were asking about transferring patient to a different hospital and explained to them , I feel management will be the same. 03/25 I discussed with primary team to consider to change Vancomycin to Zyvox, which will be easier for patient to transition to oral when she is discharged home. I explained to patient this will take few weeks before she feels better Explained to pharmacist to keep monitoring vancomycin level to be therapeutic. 03/26 patient clinically is feeling better and patient on Zyvox now. WBC slightly increased. If doesn't improve and clinically patient worsen, then will plan to to repeat CT chest tomorrow. This was discussed with primary team and patient. (2) Empyema of lung Current Visit: Yes Status: Acute Since there is bacteria in the fluid, it will be defined as empyema and will consult Dr. Berry. 03/25 discussed plan of care with Dr. Berry 03/26 Continue monitoring for now. Mobilize patient and wean off FIO2 if possible. (3) Acute respiratory failure with hypoxia Current Visit: Yes Status: Acute Wean off FIO2 to keep SPO2 around 92% and advised patient to do her IS. Subjective Principal diagnosis: Pneumonia Interval history: Patient still have dyspnea, but she feels better and she was able to sleep Objective PUL Vital signs: Last Vital Signs Temp 99.2 F 03/26/16 07:48 Pulse 101 03/26/16 07:48 Resp 17 03/26/16 07:48 BP 126/81 03/26/16 07:48 Pulse Ox 96 03/26/16 07:48 General appearance: no acute distress Eyes: nonicteric ENT: oropharynx moist Mallampati (class): 2 Neck: supple Effort: mildly labored Auscultation: left: diminished breath sounds, right: clear Percussion: left: dull, right: not dull Cardiovascular: regular rate and rhythm Gastrointestinal: normoactive bowel sounds Extremities: no cyanosis normal mental status, non-focal exam mood appropriate Results - Laboratory Findings CBC and BMP: 03/26/16 06:24 03/26/16 06:24 PT/INR, D-dimer D-Dimer 584 ng/mLFEU (0-500) H 03/20/16 05:37 Abnormal lab findings: Abnormal lab results WBC 19.0 K/mcL (4.3-11.1) H 03/26/16 06:24 RBC 3.62 M/mcL (3.82-4.97) L 03/26/16 06:24 Hgb 11.1 g/dL (11.5-15.4) L 03/26/16 06:24 Hct 32.8 % (35.3-44.9) L 03/26/16 06:24 Plt Count 496 K/mcL (140-400) H 03/26/16 06:24 Neutrophils # 14.8 K/mcL (1.6-8.9) H 03/26/16 06:24 Monocytes # 1.6 K/mcL (0.0-1.3) H 03/26/16 06:24 Reactive Lymphocytes Present (Not Present) A 03/20/16 05:37 D-Dimer 584 ng/mLFEU (0-500) H 03/20/16 05:37 C-Reactive Protein 255 mg/L (Less than 5) H 03/23/16 04:39 B-Natriuretic Peptide 183 pg/mL (0-100) H 03/23/16 04:39 Albumin 2.0 g/dL (3.5-5.0) L 03/23/16 04:39 Globulin 4.0 g/dL (2.4-3.5) H 03/23/16 04:39 Albumin/Globulin Ratio 0.5 (1.1-2.2) L 03/23/16 04:39 Ur Specific [place] 1.006 (1.010-1.025) L 03/20/16 05:30 Urine Ketones 40 mg/dL (Negative) H 03/20/16 05:30 Urine Blood Large (Negative) H 03/20/16 05:30 Urine Microscopic RBC 3-5 per hpf (0-3) H 03/20/16 05:30 Urine Bacteria Moderate per hpf (None-Few) H 03/20/16 05:30 Pleural Appearance Cloudy (Clear) A 03/23/16 10:00 Pleural RBC 0.009 M/mcL (0.000-0.002) H 03/23/16 10:00 Pleural Tot Nuc Cell > 00871 TNC/mcL (0-1000) H 03/23/16 10:00 Vancomycin Trough 20.9 mcg/mL (10-20) H* 03/25/16 19:38 - Microbiology Findings Microbiology Findings: Microbiology, Last 48 Hours 03/23/16 10:00 Gram Stain - Final Pleural Fluid Body Fluid Culture - Final Methicillin Resistant S.aureus 03/23/16 10:00 Anaerobic Culture - Preliminary Pleural Fluid At this time, no anaerobic growth is present. The culture will be finalized after 5 days of incubation. 03/22/16 11:44 Sputum Culture - Final Sputum Dora albicans Dora tropicalis 03/23/16 07:54 Blood Culture - Preliminary Peripheral Venipuncture No growth. - Clinical Findings Intake & Output: Intake & Output 03/25/16 03/26/16 03/26/16 23:59 07:59 15:59 Intake Total 250 / 250 Balance 250 / 250 Weight 69.1 kg Consult Discharge Plan - Plan Referrals: Roxie Hinojosa CNP [Primary Care Provider] - 03/28/16 10:30 am (Please follow up as schedule!!!) Prescriptions: Linezolid [Zyvox] 600 mg PO BID #22 tablet
[2016-03-26] MEDS ORDERED: Mag Hydrox/Al Hydrox/Simeth 30 ML UDC PO PRN (11:41)
[2016-03-26 15:23] LABS: Adenovirus Not Detected (Not Detect); Bordetella Pertussis Not Detected (Not Detect); Chlamydophila pneumoniae Not Detected (Not Detect); Coronavirus 229E Not Detected (Not Detect); Coronavirus HKU1 Not Detected (Not Detect); Coronavirus NL63 Not Detected (Not Detect); Coronavirus OC43 Not Detected (Not Detect); Human Metapneumovirus Not Detected (Not Detect); Human Rhinovirus/Enterovirus Not Detected (Not Detect); Influenza A Subtype 2009 H1 Not Detected (Not Detect); Influenza A Untypeable Not Detected (Not Detect); Influenza B Not Detected (Not Detect); Mycoplasma pneumoniae Not Detected (Not Detect); Parainfluenza Virus 1 Not Detected (Not Detect); Parainfluenza Virus 2 Not Detected (Not Detect); Parainfluenza Virus 3 Not Detected (Not Detect); Parainfluenza Virus 4 Not Detected (Not Detect); Respiratory Syncytial Virus Not Detected (Not Detect)
[2016-03-27] MEDS: *HR* LORazepam 0.5 MG TABLET PO PRN ×4 (02:19→20:09)
[2016-03-27] MEDS: Ondansetron 4 MG/2 ML VIAL IVP PRN ×2 (05:36→20:09)
[2016-03-27] MEDS: *HR* Enoxaparin 40 MG/0.4 ML SYRINGE SQ SCH (05:37)
[2016-03-27] MEDS: *HR* HYDROcodone/Acet 5/325 mg TABLET PO PRN ×3 (05:39→19:47)
[2016-03-27] MEDS: Acetaminophen 325 MG TABLET PO PRN ×2 (05:40→16:20)
[2016-03-27 07:08] LABS: BUN/Creatinine Ratio 8 (6-26); Blood Urea Nitrogen 7 mg/dL (7-20); Carbon Dioxide 27 mEq/L (19-29); Chloride 102 mEq/L (98-109); Glucose 116 mg/dL (70-99); Osmolality,Calculated 283 (280-300); Potassium 3.1 mEq/L (3.5-4.5); Sodium 137 mEq/L (136-145); eGFR For African Americans > 60 (> 60); eGFR For Non-African Americans > 60 (> 60)
[2016-03-27 08:47] LABS: Basophils % 0.2 %; Eosinophils # 0.2 K/mcL (0.0-0.6); Eosinophils % 0.8 %; Hematocrit 28.7 % (35.3-44.9); Immature Granulocytes % 1.6 % (0-4); Lymphocytes # 1.7 K/mcL (0.6-4.6); Lymphocytes % 8.7 %; Mean Corpuscular HGB Conc 34.8 g/dL (31.6-35.5); Mean Corpuscular Hemoglobin 31.3 pg (28.0-33.3); Mean Corpuscular Volume 89.7 fL (83.0-100.0); Mean Platelet Volume 10.2 fL (9.4-12.4); Monocytes # 1.3 K/mcL (0.0-1.3); Monocytes % 6.8 %; Platelet Count 413 K/mcL (140-400); Red Cell Distribution Width 13.3 % (11.5-14.5); Segmented Neutrophils % 81.9 %
[2016-03-27] MEDS ORDERED: Pantoprazole 40 MG VIAL IVP SCH (09:00)
--- NOTE | 2016-03-27 09:20 | Internal Med Progress Note ---
Date of Encounter: 03/27/16 Time of Encounter: 08:50 - Assessment and plan (1) Pneumonia of left lower lobe due to methicillin-resistant Staphylococcus aureus (MRSA) Current Visit: Yes Status: Acute Assessment and plan: Continue Zyvox. WBC count is slightly elevated again today. Will get CT scan of the chest with contrast. Pulmonology following. We will follow on results of CT scan. (2) Empyema of lung Current Visit: Yes Status: Acute Assessment and plan: No surgical intervention needed per cardiothoracic surgery at this time. Will repeat CT scan of the chest and follow (3) Acute respiratory failure with hypoxia Current Visit: Yes Status: Acute Assessment and plan: Continue O2 supplementation. (4) Sepsis Current Visit: Yes Status: Acute Assessment and plan: From MRSA pneumonia. Blood cultures have been negative. Leukocytosis persists. Qualifiers: Sepsis type: methicillin resistant Staphylococcus aureus Qualified Code(s) : A41.02 - Sepsis due to Methicillin resistant Staphylococcus aureus - Subjective Interval history: Patient feels slightly better compared to yesterday. Pain in her chest with deep breaths is improving. Still has significant shortness of breath especially with minimal exertion. Nausea is better today. - Constitutional Vitals: Temp Pulse Resp BP Pulse Ox 98.5 F 93 16 112/71 93 L 03/27/16 07:01 03/27/16 07:01 03/27/16 07:01 03/27/16 07:01 03/27/16 07:01 General appearance: Present: cooperative, mild distress, A&O X 3, morbidly obese , pleasant, answers questions appropriately - Respiratory Respiratory exam: Present: decreased breath sounds (left base), CTAB. Absent: accessory muscle use, rales, rhonchi, wheezes - Cardiovascular Cardiovascular exam: Present: RRR, +S1, +S2. Absent: diastolic murmur, gallop, rubs, systolic murmur - GI/Abdominal GI/Abdominal exam: Present: normal bowel sounds, soft, no peritoneal signs. Absent: distended, tenderness - Extremities Exam Extremities exam: Present: warm, radial pulses palpable and symetrical. Absent : calf tenderness, cyanotic, pedal edema - Neurological Exam Neurological exam: Present: alert, CN II-XII intact, oriented X3, no focal deficits. Absent: facial droop, speech deficit Internal Medicine: Result - Labs CBC & Chem 7: 03/27/16 08:14 03/27/16 06:43 Labs: Short CBC 03/27/16 Range/Units 08:14 WBC 19.6 H (4.3-11.1) K/mcL Hgb 10.0 L (11.5-15.4) g/dL Hct 28.7 L (35.3-44.9) % Plt Count 413 H (140-400) K/mcL Neutrophils # 16.0 H (1.6-8.9) K/mcL BMP 03/27/16 06:43 Sodium 137 Potassium 3.1 L Chloride 102 Carbon Dioxide 27 BUN 7 Creatinine 0.85 Glucose 116 H Calcium 8.0 L - ABG Interpretation ABG results: PT/INR, D-dimer D-Dimer 584 ng/mLFEU (0-500) H 03/20/16 05:37 Consult Discharge Plan - Plan Referrals: Roxie Hinojosa, [employer] [Primary Care Provider] - 03/28/16 10:30 am (Please follow up as schedule!!!) Prescriptions: Linezolid [Zyvox] 600 mg PO BID #22 tablet - Attending Attestation This document has been at least partially created by [employer] recognition technology by Dr. Rosado. Errors in grammar, wording or other phrases may exist. If errors are found after the documentation is signed, they will be addressed individually in the addendum section of this document when appropriate.
--- NOTE | 2016-03-27 17:14 | Procedure Note ---
Date of procedure: 03/27/16 Pre-op diagnosis: Left-sided pleural effusion Post-op diagnosis: other (Right-sided empyema) Procedure: Diagnostic and therapeutic thoracentesis Medications: Local lidocaine 1% 10 mL No immediate complications After obtaining informed consent, the patient was placed in a sitting position. Using ultrasound, the left hemithorax was examined revealing a large sized pleural effusion with septation and loculation. The best entry site was marked. The area was prepped in the usual sterile fashion. Fluid was aspirated using a catheter 8 range over 18-gauge needle which was placed in the mid-scapular line. 50 mL of thick hemorrhagic and pus-looking fluid was removed. Fluid was sent for routine pleural analysis. Patient's condition improved after the procedure. Consult cardiothoracic Dr. Berry. Anesthesia: local Surgeon: Monae Forman Estimated blood loss (cc): 1 Condition: stable
--- NOTE | 2016-03-27 17:18 | Pulmonology Progress Note ---
Date of Encounter: 03/27/16 Time of Encounter: 08:00 Assessment and Plan (1) Pneumonia of left lower lobe due to methicillin-resistant Staphylococcus aureus (MRSA) Current Visit: Yes Status: Acute Continue Vancomycin and will consult cardiothoracic. Will stop Zosyn and pharmacy to dose vancomycin. Need to make sure level is therapeutic. Discussed with patient about her disease as well as to her friend. They were asking about transferring patient to a different hospital and explained to them , I feel management will be the same. 03/25 I discussed with primary team to consider to change Vancomycin to Zyvox, which will be easier for patient to transition to oral when she is discharged home. I explained to patient this will take few weeks before she feels better Explained to pharmacist to keep monitoring vancomycin level to be therapeutic. 03/26 patient clinically is feeling better and patient on Zyvox now. WBC slightly increased. If doesn't improve and clinically patient worsen, then will plan to to repeat CT chest tomorrow. This was discussed with primary team and patient. 03/27 patient clinically feels better and continue antibiotics. Subsequently patient had a CT chest (2) Empyema of lung Current Visit: Yes Status: Acute Since there is bacteria in the fluid, it will be defined as empyema and will consult Dr. Berry. 03/25 discussed plan of care with Dr. Berry 03/26 Continue monitoring for now. Mobilize patient and wean off FIO2 if possible. 03/[address] chest with large loculated pleural effusion and compressive atelectasis. I feel the patient needs decortication and this was discussed with cardiothoracic. (3) Acute respiratory failure with hypoxia Current Visit: Yes Status: Acute Wean off FIO2 to keep SPO2 around 92% and advised patient to do her IS. Subjective Principal diagnosis: Pneumonia Interval history: Patient still have dyspnea, but she feels better and she was able to sleep however she has an anxiety Objective PUL Vital signs: Last Vital Signs Temp 99.1 F 03/27/16 15:00 Pulse 101 03/27/16 15:00 Resp 22 03/27/16 11:07 BP 123/78 03/27/16 15:00 Pulse Ox 96 03/27/16 15:00 General appearance: no acute distress Eyes: nonicteric Neck: supple Effort: normal Auscultation: left: diminished breath sounds, right: clear Percussion: left: dull, right: not dull Cardiovascular: regular rate and rhythm Gastrointestinal: normoactive bowel sounds Extremities: no cyanosis normal mental status, non-focal exam mood appropriate Results - Laboratory Findings CBC and BMP: 03/27/16 08:14 03/27/16 06:43 PT/INR, D-dimer D-Dimer 584 ng/mLFEU (0-500) H 03/20/16 05:37 Abnormal lab findings: Abnormal lab results WBC 19.6 K/mcL (4.3-11.1) H 03/27/16 08:14 RBC 3.20 M/mcL (3.82-4.97) L 03/27/16 08:14 Hgb 10.0 g/dL (11.5-15.4) L 03/27/16 08:14 Hct 28.7 % (35.3-44.9) L 03/27/16 08:14 Plt Count 413 K/mcL (140-400) H 03/27/16 08:14 Neutrophils # 16.0 K/mcL (1.6-8.9) H 03/27/16 08:14 Reactive Lymphocytes Present (Not Present) A 03/20/16 05:37 D-Dimer 584 ng/mLFEU (0-500) H 03/20/16 05:37 Potassium 3.1 mEq/L (3.5-4.5) L 03/27/16 06:43 Glucose 116 mg/dL (70-99) H 03/27/16 06:43 Calcium 8.0 mg/dL (8.6-10.8) L 03/27/16 06:43 C-Reactive Protein 255 mg/L (Less than 5) H 03/23/16 04:39 B-Natriuretic Peptide 183 pg/mL (0-100) H 03/23/16 04:39 Albumin 2.0 g/dL (3.5-5.0) L 03/23/16 04:39 Globulin 4.0 g/dL (2.4-3.5) H 03/23/16 04:39 Albumin/Globulin Ratio 0.5 (1.1-2.2) L 03/23/16 04:39 Ur Specific [place] 1.006 (1.010-1.025) L 03/20/16 05:30 Urine Ketones 40 mg/dL (Negative) H 03/20/16 05:30 Urine Blood Large (Negative) H 03/20/16 05:30 Urine Microscopic RBC 3-5 per hpf (0-3) H 03/20/16 05:30 Urine Bacteria Moderate per hpf (None-Few) H 03/20/16 05:30 Pleural Appearance Cloudy (Clear) A 03/23/16 10:00 Pleural RBC 0.009 M/mcL (0.000-0.002) H 03/23/16 10:00 Pleural Tot Nuc Cell > 94641 TNC/mcL (0-1000) H 03/23/16 10:00 Vancomycin Trough 20.9 mcg/mL (10-20) H* 03/25/16 19:38 - Microbiology Findings Microbiology Findings: Microbiology, Last 48 Hours 03/21/16 09:37 Blood Culture - Final Peripheral Venipuncture No growth. 03/23/16 10:00 Gram Stain - Final Pleural Fluid Body Fluid Culture - Final Methicillin Resistant S.aureus 03/23/16 10:00 Anaerobic Culture - Preliminary Pleural Fluid At this time, no anaerobic growth is present. The culture will be finalized after 5 days of incubation. 03/22/16 11:44 Sputum Culture - Final Sputum Dora albicans Dora tropicalis - Diagnostic Findings CT scan - chest: report reviewed, image reviewed - Clinical Findings Intake & Output: Intake & Output 03/27/16 03/27/16 03/27/16 07:59 15:59 23:59 Intake Total 300 / 300 240 / 240 Balance 300 / 300 240 / 240 Weight 70 kg Consult Discharge Plan - Plan Referrals: Roxie Hinojosa CNP [Primary Care Provider] - 03/28/16 10:30 am (Please follow up as schedule!!!) Prescriptions: Linezolid [Zyvox] 600 mg PO BID #22 tablet
--- NOTE | 2016-03-27 17:22 | Cardiothoracic Progress Note ---
Date of Encounter: 03/27/16 Time of Encounter: 17:20 - Assessment and plan (1) Pneumonia Current Visit: Yes Status: Acute The patient continues to complain of left lateral flank pain. A chest CT performed today shows complete collapse of the left lower lobe and lingula with associated air bronchograms consistent with superimposed pneumonia. Additionally , she has a large loculated left pleural effusion with pleural thickening. Thoracentesis/drainage was attempted with a smaller chest tube today; however, the pleural fluid was thick and did not drain easily. I believe that the patient needs a thoracotomy and decortication for removal of the loculated pleural fluid and decortication of both the parietal pleura and visceral pleura. The patient gives her informed consent and this procedure will be performed tomorrow morning. The assessment and plan as outlined above was discussed with the patient and/or family members who expressed understanding and agreement. All questions were answered. Qualifiers: Pneumonia type: due to methicillin-resistant Staphylococcus aureus (MRSA) Laterality: bilateral Lung location: unspecified part of lung Qualified Code (s): J15.212 - Pneumonia due to Methicillin resistant Staphylococcus aureus - Subjective Interval history: The patient is breathing comfortably. She still complains of left lateral flank pain. Vital Signs, Last 4 Hours Temp Pulse BP Pulse Ox 03/27/16 15:00 99.1 F 101 123/78 96 Oxgyen Flow Rate Oxygen Flow Rate (LPM) 4 Weight 03/25/16 03/26/16 03/27/16 23:59 23:59 23:59 Weight 68.039 kg 69.1 kg 70 kg - Physical Examination General: Conversant, No Apparent Distress Neck: No JVD, Normal carotid pulses Cardiac: Reg Rate and Rhythm, Normal S1 and S2, No Murmur Lungs: Normal Breath Sounds (Right lung zepeda.), Decreased breath sounds (F lung zepeda.) Neuro: Alert and responsive, No focal deficits noted Vascular: Normal capillary refill Extremities: No Clubbing, No Cyanosis, No Edema, Normal Pulses - Labs 03/27/16 08:14 03/27/16 06:43 Lab Results, Last 24 hours 03/27/16 03/27/16 06:43 08:14 WBC 19.6 H Hgb 10.0 L Hct 28.7 L Plt Count 413 H Sodium 137 Potassium 3.1 L Chloride 102 Carbon Dioxide 27 BUN 7 Creatinine 0.85 Glucose 116 H Calcium 8.0 L Consult Discharge Plan - Plan Referrals: Roxie Hinojosa, WATSON [Primary Care Provider] - 03/28/16 10:30 am (Please follow up as schedule!!!) Prescriptions: Linezolid [Zyvox] 600 mg PO BID #22 tablet
[2016-03-28] MEDS: *HR* LORazepam 0.5 MG TABLET PO PRN (02:59)
[2016-03-28] MEDS: *HR* Enoxaparin 40 MG/0.4 ML SYRINGE SQ SCH (06:13)
[2016-03-28] MEDS ORDERED: *HR* Midazolam HCl 5 MG/5 ML VIAL IVP ONE (07:13)
[2016-03-28] MEDS ORDERED: *HR* Rocuronium Bromide 50 MG/5 ML VIAL ONE ×3 (07:13→10:32)
[2016-03-28] MEDS ORDERED: *HR* Propofol 200 MG/20 ML VIAL IVP ONE ×2 (07:13→10:32)
[2016-03-28] MEDS ORDERED: *HR* Phenylephrine 10 MG/ML VIAL ONE (07:13)
[2016-03-28] MEDS ORDERED: *HR* FentaNYL (PF) 250 MCG/5 ML VIAL ONE (07:13)
[2016-03-28] MEDS ORDERED: Lidocaine 2% Syringe 100 MG/5 ML ONE (07:16)
--- NOTE | 2016-03-28 07:23 | Anesthesia Evaluation PreOp ---
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 Other Medical History: Denies Any Significant HX Anesthesia History: No Prior Anesthetic Complications (prior C/S, no problems) : No Test: Negative Alcohol Use: none Drug use: none Medications and Allergies Guaifenesin/Dm/Pseudoephedrine [Capmist Dm Tablet] 1 each PO QID 03/20/16 [ History] Levofloxacin [Levaquin] 500 mg PO DAILY #6 tablet 03/20/16 [Rx] Ondansetron ODT [Zofran ODT] 4 mg PO Q6HR PRN #7 tab 03/20/16 [Rx] PredniSONE 30 mg PO BID 03/20/16 [History] Saccharomyces Boulardii [Florastor] 250 mg PO 1-2XD #10 capsule 03/20/16 [Rx] Linezolid [Zyvox] 600 mg PO BID #22 tablet 03/25/16 [Rx] Allergies prednisone Allergy (Verified 03/20/16 09:02) Shakiness her doctor told her not to take it - Meds/Allergy Pre-op Review Medications Reviewed: Yes Allergies Reviewed: Yes Beta Blockers on Current Med List: No Anesthesia Results - Labs 03/27/16 08:14 03/27/16 06:43 - Imaging Chest x-ray: report reviewed Additional studies: CT chest shows loculated fluid and collapse of left lower lobe Anesthesia Exam Selected Entries 03/27/16 23:21 03/28/16 03:03 Temperature 99.8 F H Pulse Rate 99 Respiratory Rate 18 Blood Pressure 115/75 O2 Sat by Pulse Oximetry 97 Height: 64in Weight: 70kg NPO (# of Hours): 8 Pain Scale: 2 Pain Scale Used: Numeric (1 - 10) - HEENT Pupil (Motor): EOMI Mallampati: II Teeth: Normal Oral Opening: Greater than 3 - SHOPPING INVESTIGATOR LOC: Oriented SHOPPING INVESTIGATOR Motor: Normal RUE, Normal LUE, Normal RLE, Normal LLE, Normal Face SHOPPING INVESTIGATOR Sensory: Normal: RUE, LUE, RLE, LLE, Face - Cardiac Rhythm: Regular Murmur: None - Pulmonary Breath Sounds: left Rhonchi (decreased breath sounds), right Clear Respiratory Effort: Symmetrical Anesthesia Assess/Plan ASA Score: 2 Modified [place] Scale for Level of Consciousness: Cooperative, oriented, and tranquil Anesthetic Plan: General Monitoring Plan: Standard Monitors Recovery Plan: ICU (Discussed risks of GA. Unable to do epiural due to elevated white count. No indication for arterial line. Questions answered and agrees to proceed.)
[2016-03-28] MEDS ORDERED: ceFAZolin 2,000 MG in D5% in Water 100 ML IVPB ONE (07:45)
[2016-03-28] MEDS ORDERED: *HR* Morphine 10 MG/ML VIAL ONE (08:40)
[2016-03-28] MEDS ORDERED: Ondansetron 4 MG/2 ML VIAL ONE (08:51)
[2016-03-28] MEDS ORDERED: Dexamethasone 4 MG/ML VIAL ONE (08:51)
--- NOTE | 2016-03-28 10:24 | Operative Note ---
Date of procedure: 03/28/16 Pre-op diagnosis: Left empyema thoracis Post-op diagnosis: same Procedure: 1. Left posterolateral thoracotomy. 2. Decortication, complete. Implants: None. Complications: None. Anesthesia: GETA Local Anesthetics: 0.5% Sensorcaine HCL SubQ (cc) (30) Surgeon: Nano Berry Estimated blood loss (cc): 100 Condition: stable Disposition: ICU Procedure in Detail: INDICATIONS FOR OPERATION: The patient is a 40 year old otherwise healthy lady who developed a severe headache and nasal congestion on March 13, 2016. She was evaluated at a local urgent care center and treated with oral antibiotics, a decongestant, and prednisone. The prednisone caused the patient to "not feel right" and she stopped the steroid following day. She was reevaluated by her primary care physician on Thursday, March 17, 2016. At that time the patient's headache had resolved; however, she continued to experience nasal congestion and had developed a slight nonproductive cough. Subsequently the patient developed intense nausea and vomiting and was evaluated at [facility] on Saturday, April 16, 2016. A chest x-ray showed a left lower lobe pneumonia and this was confirmed by chest CT. The patient had left lingular and left lower lobe consolidation as well as right middle lobe atelectasis. He trace pleural effusion was also seen. She was admitted for antibiotic therapy. During the hospitalization the patient has developed a left pleural effusion and underwent thoracentesis with drainage of 500 mL of a cloudy, dark fluid which grew MRSA. Initially was hoped that the thoracentesis resolve the problem ; however, the patient then developed a large loculated left lateral pleural effusion. The patient was recommended for left thoracotomy and decortication. FINDINGS AT OPERATION: The patient had a large loculated left lateral pleural effusion and approximately 500 mL. The fluid was cloudy and yellow. The parietal peel measured approximately 4-5 mm in thickness and the visceral peel was approximately 2-3 mm in thickness. The visceral peel involved the entire left lower lobe and a portion of the left upper lobe. DESCRIPTION OF OPERATION: After obtaining informed Consent from the patient, she was taken to the operative tumor satisfactory general tracheal anesthetic was induced. A double- lumen endotracheal tube was inserted as were other appropriate monitoring lines. The patient was then turned in the right lateral decubitus position and her left lateral chest was prepped and draped in sterile fashion. A standard posterior lateral thoracotomy incision was then made through the skin and subcutaneous tissue. The latissimus dorsi muscle was divided and the serratus anterior muscle was reflected anteriorly. The fifth intercostal space was identified and opened. The ribs were then . Upon entering the left hemithorax large amount of cloudy yellow fluid was suctioned. This measured approximately 500 mL. Thick loculated fluid collections were then taken down bluntly and the parietal peel measuring approximately 4-5 mm in thickness was taken down using blunt dissection and electrocautery. Attention was then turned to the visceral peel which measured approximately 2-3 mm in diameter. This was taken down off the entire left lower lobe and a portion of the left upper lobe. The left hemithorax was then irrigated with 3 L of saline. Two 32 [place] chest tubes were placed, one anteriorly and one posteriorly. The ribs were reapproximated using #1 Vicryl sutures and the serratus anterior muscle, latissimus dorsi muscle, subcutaneous tissue, and skin edges were reapproximated using running Vicryl sutures. The thoracotomy incision and chest tube insertion sites were then anesthetized with bupivacaine 0.5% without epinephrine. Sterile dressings were applied. The patient was transferred to the ICU in satisfactory postoperative condition. There were no intraoperative complications, and the instrument needle, and sponge count were corrected of operation.
[2016-03-28] MEDS ORDERED: *HR* OxyCODONE/APAP 5/325 TABLET PO PRN (10:36)
[2016-03-28] MEDS ORDERED: *HR* Morphine 2 MG/ML SYRINGE IVP PRN ×2 (10:36)
[2016-03-28] MEDS ORDERED: 0.9 % Sodium Chloride w KCl 20 MEQ/1,000 ML MLS IV SCH (10:45)
[2016-03-28] MEDS ORDERED: Lacri-Lube 3.5 GM TUBE BOTH EYES PRN (10:55)
[2016-03-28] MEDS ORDERED: FentaNYL (PF) 1,000 MCG in 0.9 % Sodium Chloride 80 ML IVC SCH (11:00)
[2016-03-28] MEDS ORDERED: Dexmedetomidine HCl 400 MCG/100 ML MLS IVC SCH (11:00)
[2016-03-28 11:26] LABS: Basophils # 0.1 K/mcL (0.0-0.2); Basophils % 0.2 %; Eosinophils # 0.1 K/mcL (0.0-0.6); Eosinophils % 0.3 %; Hematocrit 29.9 % (35.3-44.9); Hemoglobin 9.8 g/dL (11.5-15.4); Immature Granulocytes % 1.9 % (0-4); Lymphocytes # 0.8 K/mcL (0.6-4.6); Lymphocytes % 2.9 %; Mean Corpuscular HGB Conc 32.8 g/dL (31.6-35.5); Mean Corpuscular Hemoglobin 30.7 pg (28.0-33.3); Mean Corpuscular Volume 93.7 fL (83.0-100.0); Mean Platelet Volume 9.3 fL (9.4-12.4); Monocytes % 3.5 %; Neutrophils # 25.2 K/mcL (1.6-8.9); Platelet Count 464 K/mcL (140-400); Red Blood Count 3.19 M/mcL (3.82-4.97); Red Cell Distribution Width 13.6 % (11.5-14.5); Segmented Neutrophils % 91.2 %
[2016-03-28 11:34] LABS: BUN/Creatinine Ratio 7 (6-26); Blood Urea Nitrogen 6 mg/dL (7-20); Calcium 7.9 mg/dL (8.6-10.8); Carbon Dioxide 25 mEq/L (19-29); Chloride 102 mEq/L (98-109); Glucose 158 mg/dL (70-99); Osmolality,Calculated 285 (280-300); Potassium 3.6 mEq/L (3.5-4.5); Sodium 137 mEq/L (136-145); eGFR For African Americans > 60 (> 60); eGFR For Non-African Americans > 60 (> 60)
[2016-03-28] MEDS: Ipratropium/Albuterol Neb 3 ML IH SCH ×3 (11:36→20:49)
[2016-03-28] MEDS: Ketorolac 15 MG/ML VIAL IVP SCH ×2 (11:43→18:12)
[2016-03-28] MEDS: Lacri-Lube 3.5 GM TUBE BOTH EYES SCH ×2 (12:00→15:28)
[2016-03-28 12:10] LABS: ABG Base Excess 4.2 mEq/L (-2.0 to 3.0); ABG HCO3 29.7 mEQ/L (21-27); ABG Oxygen Saturation 93 % (95-98); ABG PCO2 48 mmHg (35-45); ABG PO2 66 mmHg (85-104); ABG TCO2 31.2 mEq/L (20-26)
[2016-03-28 12:11] LABS: Blood Gas FiO2 60 %
--- NOTE | 2016-03-28 14:46 | Pulmonology Progress Note ---
<Raoul Morton - Last Filed: 03/28/16 14:37> Date of Encounter: 03/28/16 Time of Encounter: 11:00 Assessment and Plan (1) Pneumonia of left lower lobe due to methicillin-resistant Staphylococcus aureus (MRSA) Current Visit: Yes Status: Acute Patient underwent thoracotomy for decortication of empyema on 03/28/16. Patient remains intubated following procedure, she was moved to ICU for closer observation for extubation later. Previously on Zyvox after several days of vancomycin. Continue Zyvox CPAP trial in plan for future extubation Continue Vancomycin and will consult cardiothoracic. Will stop Zosyn and pharmacy to dose vancomycin. Need to make sure level is therapeutic. Discussed with patient about her disease as well as to her friend. They were asking about transferring patient to a different hospital and explained to them , I feel management will be the same. 03/25 I discussed with primary team to consider to change Vancomycin to Zyvox, which will be easier for patient to transition to oral when she is discharged home. I explained to patient this will take few weeks before she feels better Explained to pharmacist to keep monitoring vancomycin level to be therapeutic. 03/26 patient clinically is feeling better and patient on Zyvox now. WBC slightly increased. If doesn't improve and clinically patient worsen, then will plan to to repeat CT chest tomorrow. This was discussed with primary team and patient. 03/27 patient clinically feels better and continue antibiotics. Subsequently patient had a CT chest (2) Empyema of lung Current Visit: Yes Status: Acute Patient underwent thoracotomy with decortication on 03/28/16. Patient currently intubated and moved to ICU. Continue Zyvox Patient will likely need significant pain medication post thoracotomy, currently on retinal drip to assist with pain/sedation Will reassess when patient more awake Since there is bacteria in the fluid, it will be defined as empyema and will consult Dr. Berry. 03/25 discussed plan of care with Dr. Berry 03/26 Continue monitoring for now. Mobilize patient and wean off FIO2 if possible. 03/[address] chest with large loculated pleural effusion and compressive atelectasis. I feel the patient needs decortication and this was discussed with cardiothoracic. (3) Acute respiratory failure with hypoxia Current Visit: Yes Status: Acute Plan as above (4) Sepsis Current Visit: Yes Status: Acute Due to right lower lobe empyema of MRSA Plan as above Qualifiers: Sepsis type: methicillin resistant Staphylococcus aureus Qualified Code(s) : A41.02 - Sepsis due to Methicillin resistant Staphylococcus aureus (5) DVT prophylaxis Current Visit: Yes Status: Acute GI prophylaxis: Omeprazole when taking by mouth, Protonix if not Due to prophylaxis: EPCDs Neuro/sedation: Patient sedated with Precedex and fentanyl. Cardiovascular: No concerns at this time Respiratory: Empyema with MRSA, pneumonia for MRSA. Continued with Zyvox. Thoracotomy with decortication today. Currently intubated and mechanically ventilated, we will attempt CPAP trial and consider extubation GI: No concerns this time Renal: No concerns this time Endocrine: No concerns this time Skin: Skin care per ICU protocol Fluids/electrolytes: No concerns at this time Heme: Leukocytosis on account of empyema and recent procedures, we will continue to monitor ID: MRSA pneumonia and empyema, continue Zyvox CODE STATUS: Full Subjective Principal diagnosis: Pneumonia Interval history: Patient seen after thoracotomy with decortication of empyema completed today. There was difficulty in extubation likely due to patient anxiety. Patient remains intubated and is sedated with Precedex and fentanyl. Appears comfortable at this time but unable to participate in patient interview. Objective PUL Vital signs: Last Vital Signs Temp 99.1 F 03/28/16 14:00 Pulse 76 03/28/16 14:00 Resp 24 03/28/16 14:00 BP 94/51 03/28/16 14:00 Pulse Ox 96 03/28/16 14:00 Constitutional: No acute distress, comfortable appearing, sedated EENT: Sclera nonicteric, noninjected, oropharynx moist, Respiratory: Respirations nonlabored, decreased breath sounds over left lower lung Cardiovascular: Regular rate and rhythm, no murmurs/rubs/gallops appreciated Gastrointestinal: Normoactive bowel sounds, soft, nontender, nondistended, no guarding or rebound Integumentary: No erythema, no rashes, no pallor appreciated Extremities: No cyanosis, no edema, no clubbing, pink and warm, pulses present and equal bilaterally Musculoskeletal: No deformities, [address] and right posterior chest, minimal drainage so far, appear to be working okay Neurologic: Sedated, pupils equal round reactive to light bilaterally Ventilator Settings Ventilator Settings: Ventilator Settings, Last 8 Hours Ventilator Mode CPAP Ventilator Mode A/C Ventilator Mode A/C Ventilator Mode A/C Ventilator Mode A/C Ventilator Mode A/C Ventilator Mode A/C Ventilator Mode A/C Ventilator Mode A/C Ventilator Tidal Volume 400 Setting Ventilator Tidal Volume 400 Setting Ventilator Tidal Volume 400 Setting Ventilator Tidal Volume 400 Setting Ventilator Tidal Volume 400 Setting Ventilator Tidal Volume 400 Setting Ventilator Tidal Volume 400 Setting Ventilator Tidal Volume 400 Setting Ventilator Respiratory Rate 12 Setting Ventilator Respiratory Rate 12 Setting Ventilator Respiratory Rate 12 Setting Ventilator Respiratory Rate 12 Setting Ventilator Respiratory Rate 12 Setting Ventilator Respiratory Rate 12 Setting Ventilator Respiratory Rate 12 Setting Actual Respiratory Rate 24 Actual Respiratory Rate 14 Actual Respiratory Rate 20 Actual Respiratory Rate 17 Actual Respiratory Rate 19 Actual Respiratory Rate 19 Actual Respiratory Rate 12 Actual Respiratory Rate 12 Positive End Expiratory 5 Pressure Positive End Expiratory 5 Pressure Positive End Expiratory 5 Pressure Positive End Expiratory 5 Pressure Positive End Expiratory 5 Pressure Positive End Expiratory 5 Pressure Positive End Expiratory 5 Pressure Positive End Expiratory 5 Pressure Positive End Expiratory 5 Pressure Peak Inspiratory Airway 14 Pressure Peak Inspiratory Airway 14 Pressure Peak Inspiratory Airway 20 Pressure Peak Inspiratory Airway 20 Pressure Peak Inspiratory Airway 20 Pressure Peak Inspiratory Airway 20 Pressure Peak Inspiratory Airway 20 Pressure Peak Inspiratory Airway 20 Pressure Results - Laboratory Findings CBC and BMP: 03/28/16 11:07 03/28/16 11:07 ABG ABG pH 7.40 pH Units (7.32-7.45) 03/28/16 11:49 ABG pCO2 48 mmHg (35-45) H 03/28/16 11:49 ABG pO2 66 mmHg (85-104) L 03/28/16 11:49 ABG O2 Saturation 93 % (95-98) L 03/28/16 11:49 PT/INR, D-dimer D-Dimer 584 ng/mLFEU (0-500) H 03/20/16 05:37 Abnormal lab findings: Abnormal lab results WBC 27.6 K/mcL (4.3-11.1) H 03/28/16 11:07 RBC 3.19 M/mcL (3.82-4.97) L 03/28/16 11:07 Hgb 9.8 g/dL (11.5-15.4) L 03/28/16 11:07 Hct 29.9 % (35.3-44.9) L 03/28/16 11:07 Plt Count 464 K/mcL (140-400) H 03/28/16 11:07 MPV 9.3 fL (9.4-12.4) L 03/28/16 11:07 Neutrophils # 25.2 K/mcL (1.6-8.9) H 03/28/16 11:07 Reactive Lymphocytes Present (Not Present) A 03/20/16 05:37 D-Dimer 584 ng/mLFEU (0-500) H 03/20/16 05:37 ABG pCO2 48 mmHg (35-45) H 03/28/16 11:49 ABG pO2 66 mmHg (85-104) L 03/28/16 11:49 ABG HCO3 29.7 mEQ/L (21-27) H 03/28/16 11:49 ABG Total CO2 31.2 mEq/L (20-26) H 03/28/16 11:49 ABG O2 Saturation 93 % (95-98) L 03/28/16 11:49 ABG Base Excess 4.2 mEq/L (-2.0 to 3.0) H 03/28/16 11:49 BUN 6 mg/dL (7-20) L 03/28/16 11:07 Glucose 158 mg/dL (70-99) H 03/28/16 11:07 Calcium 7.9 mg/dL (8.6-10.8) L 03/28/16 11:07 C-Reactive Protein 255 mg/L (Less than 5) H 03/23/16 04:39 B-Natriuretic Peptide 183 pg/mL (0-100) H 03/23/16 04:39 Albumin 2.0 g/dL (3.5-5.0) L 03/23/16 04:39 Globulin 4.0 g/dL (2.4-3.5) H 03/23/16 04:39 Albumin/Globulin Ratio 0.5 (1.1-2.2) L 03/23/16 04:39 Ur Specific [place] 1.006 (1.010-1.025) L 03/20/16 05:30 Urine Ketones 40 mg/dL (Negative) H 03/20/16 05:30 Urine Blood Large (Negative) H 03/20/16 05:30 Urine Microscopic RBC 3-5 per hpf (0-3) H 03/20/16 05:30 Urine Bacteria Moderate per hpf (None-Few) H 03/20/16 05:30 Pleural Appearance Cloudy (Clear) A 03/23/16 10:00 Pleural RBC 0.009 M/mcL (0.000-0.002) H 03/23/16 10:00 Pleural Tot Nuc Cell > 62205 TNC/mcL (0-1000) H 03/23/16 10:00 Vancomycin Trough 20.9 mcg/mL (10-20) H* 03/25/16 19:38 - Microbiology Findings Microbiology Findings: Microbiology, Last 48 Hours 03/23/16 07:54 Blood Culture - Final Peripheral Venipuncture No growth. 03/28/16 08:40 Acid Fast Stain - Final Pleural Fluid 03/28/16 08:40 Body Fluid Culture - Preliminary Pleural Fluid 03/23/16 10:00 Anaerobic Culture - Final Pleural Fluid No anaerobes were recovered. 03/21/16 09:37 Blood Culture - Final Peripheral Venipuncture No growth. - Clinical Findings Intake & Output: Intake & Output 03/27/16 03/28/16 03/28/16 23:59 07:59 15:59 Intake Total 300 / 300 100 / 100 Output Total 590 / 590 Balance 300 / 300 -490 / -490 Consult Discharge Plan - Plan Referrals: Roxie Hinojosa [employer] ADVISOR [Primary Care Provider] - 03/28/16 10:30 am (Please follow up as schedule!!!) Prescriptions: Linezolid [Zyvox] 600 mg PO BID #22 tablet <Monae Forman - Last Filed: 03/28/16 17:11> Assessment and Plan (1) Pneumonia of left lower lobe due to methicillin-resistant Staphylococcus aureus (MRSA) Current Visit: Yes Status: Acute (2) Empyema of lung Current Visit: Yes Status: Acute (3) Acute respiratory failure with hypoxia Current Visit: Yes Status: Acute Objective PUL Vital signs: Last Vital Signs Temp 98.0 F 03/28/16 17:00 Pulse 88 03/28/16 17:00 Resp 16 03/28/16 17:00 BP 98/66 03/28/16 17:00 Pulse Ox 94 L 03/28/16 17:00 Ventilator Settings Ventilator Settings: Ventilator Settings, Last 8 Hours Ventilator Mode CPAP Ventilator Mode CPAP Ventilator Mode A/C Ventilator Mode A/C Ventilator Mode A/C Ventilator Mode A/C Ventilator Mode A/C Ventilator Mode A/C Ventilator Mode A/C Ventilator Mode A/C Ventilator Tidal Volume 400 Setting Ventilator Tidal Volume 400 Setting Ventilator Tidal Volume 400 Setting Ventilator Tidal Volume 400 Setting Ventilator Tidal Volume 400 Setting Ventilator Tidal Volume 400 Setting Ventilator Tidal Volume 400 Setting Ventilator Tidal Volume 400 Setting Ventilator Tidal Volume 400 Setting Ventilator Respiratory Rate 12 Setting Ventilator Respiratory Rate 12 Setting Ventilator Respiratory Rate 12 Setting Ventilator Respiratory Rate 12 Setting Ventilator Respiratory Rate 12 Setting Ventilator Respiratory Rate 12 Setting Ventilator Respiratory Rate 12 Setting Actual Respiratory Rate 30 Actual Respiratory Rate 24 Actual Respiratory Rate 14 Actual Respiratory Rate 20 Actual Respiratory Rate 17 Actual Respiratory Rate 19 Actual Respiratory Rate 19 Actual Respiratory Rate 12 Actual Respiratory Rate 12 Positive End Expiratory 5 Pressure Positive End Expiratory 5 Pressure Positive End Expiratory 5 Pressure Positive End Expiratory 5 Pressure Positive End Expiratory 5 Pressure Positive End Expiratory 5 Pressure Positive End Expiratory 5 Pressure Positive End Expiratory 5 Pressure Positive End Expiratory 5 Pressure Positive End Expiratory 5 Pressure Peak Inspiratory Airway 14 Pressure Peak Inspiratory Airway 14 Pressure Peak Inspiratory Airway 14 Pressure Peak Inspiratory Airway 20 Pressure Peak Inspiratory Airway 20 Pressure Peak Inspiratory Airway 20 Pressure Peak Inspiratory Airway 20 Pressure Peak Inspiratory Airway 20 Pressure Peak Inspiratory Airway 20 Pressure Results - Laboratory Findings CBC and BMP: 03/28/16 11:07 03/28/16 11:07 ABG ABG pH 7.40 pH Units (7.32-7.45) 03/28/16 11:49 ABG pCO2 48 mmHg (35-45) H 03/28/16 11:49 ABG pO2 66 mmHg (85-104) L 03/28/16 11:49 ABG O2 Saturation 93 % (95-98) L 03/28/16 11:49 PT/INR, D-dimer D-Dimer 584 ng/mLFEU (0-500) H 03/20/16 05:37 Abnormal lab findings: Abnormal lab results WBC 27.6 K/mcL (4.3-11.1) H 03/28/16 11:07 RBC 3.19 M/mcL (3.82-4.97) L 03/28/16 11:07 Hgb 9.8 g/dL (11.5-15.4) L 03/28/16 11:07 Hct 29.9 % (35.3-44.9) L 03/28/16 11:07 Plt Count 464 K/mcL (140-400) H 03/28/16 11:07 MPV 9.3 fL (9.4-12.4) L 03/28/16 11:07 Neutrophils # 25.2 K/mcL (1.6-8.9) H 03/28/16 11:07 Reactive Lymphocytes Present (Not Present) A 03/20/16 05:37 D-Dimer 584 ng/mLFEU (0-500) H 03/20/16 05:37 ABG pCO2 48 mmHg (35-45) H 03/28/16 11:49 ABG pO2 66 mmHg (85-104) L 03/28/16 11:49 ABG HCO3 29.7 mEQ/L (21-27) H 03/28/16 11:49 ABG Total CO2 31.2 mEq/L (20-26) H 03/28/16 11:49 ABG O2 Saturation 93 % (95-98) L 03/28/16 11:49 ABG Base Excess 4.2 mEq/L (-2.0 to 3.0) H 03/28/16 11:49 BUN 6 mg/dL (7-20) L 03/28/16 11:07 Glucose 158 mg/dL (70-99) H 03/28/16 11:07 Calcium 7.9 mg/dL (8.6-10.8) L 03/28/16 11:07 C-Reactive Protein 255 mg/L (Less than 5) H 03/23/16 04:39 B-Natriuretic Peptide 183 pg/mL (0-100) H 03/23/16 04:39 Albumin 2.0 g/dL (3.5-5.0) L 03/23/16 04:39 Globulin 4.0 g/dL (2.4-3.5) H 03/23/16 04:39 Albumin/Globulin Ratio 0.5 (1.1-2.2) L 03/23/16 04:39 Ur Specific [place] 1.006 (1.010-1.025) L 03/20/16 05:30 Urine Ketones 40 mg/dL (Negative) H 03/20/16 05:30 Urine Blood Large (Negative) H 03/20/16 05:30 Urine Microscopic RBC 3-5 per hpf (0-3) H 03/20/16 05:30 Urine Bacteria Moderate per hpf (None-Few) H 03/20/16 05:30 Pleural Appearance Cloudy (Clear) A 03/23/16 10:00 Pleural RBC 0.009 M/mcL (0.000-0.002) H 03/23/16 10:00 Pleural Tot Nuc Cell > 52777 TNC/mcL (0-1000) H 03/23/16 10:00 Vancomycin Trough 20.9 mcg/mL (10-20) H* 03/25/16 19:38 - Microbiology Findings Microbiology Findings: Microbiology, Last 48 Hours 03/23/16 07:54 Blood Culture - Final Peripheral Venipuncture No growth. 03/28/16 08:40 Acid Fast Stain - Final Pleural Fluid 03/28/16 08:40 Body Fluid Culture - Preliminary Pleural Fluid 03/23/16 10:00 Anaerobic Culture - Final Pleural Fluid No anaerobes were recovered. 03/21/16 09:37 Blood Culture - Final Peripheral Venipuncture No growth. - Clinical Findings Intake & Output: Intake & Output 03/28/16 03/28/16 03/28/16 07:59 15:59 23:59 Intake Total 164 / 164 Output Total 590 / 590 190 / 190 Balance -426 / -426 -190 / -190 - Attending Attestation I examined this patient and my medical decision-making was reviewed with the GENERAL ACCOUNTING CLERK/PA/Advanced Practice Nurse/Resident Physician. I agree with the documented findings, disposition and treatment plan as described except to the extent set forth below. Patient seen and examined. Labs, radiology, chart personally reviewed. Agree with resident's history and physical, assessment, plan with following comments: LABORATORY SAMPLER: Patient follows commands after extubation Pulmonary: Acceptable oxygenation and ventilation. Patient came to the ICU on a ventilator and had to start sedation. The patient had thoracotomy, initially planned to keep patient on a vent for next 24-hour, however patient started to wake up and follow commands with a CPAP trial was successfully done and subsequently successfully extubated without complications. Patient closely will be monitored in ICU. Cardiovascular: stable GI: Nutrition per dietary and GI prophylaxis per routine Heme: DVT prophylaxis per routine ID: Continue antibiotics and plan to de-escalation Renal; urine out put and renal funtion reviewed Endorcine: blood glucose is monitored Lines: all lines checked and no evidence of infections Skin: skin care to prevent pressure ulcers per nursing routine care I spent 35 min of Critical Care time with this patient. It involved decision making of high complexity to assess, manipulate, and support vital organ system failure and/or to prevent further life threatening deterioration of the patient' s condition. The time involved in the performance of separately reportable procedures was not counted toward critical care time.
[2016-03-28] MEDS: ceFAZolin 2,000 MG in D5% in Water 100 ML IVPB SCH (15:27)
[2016-03-28] MEDS ORDERED: *HR* HYDROmorphone 20 MG/20 ML PCA IVC PRN (15:53)
[2016-03-28] MEDS ORDERED: Chlorhexidine Rinse 15 ML MOUTHWASH MM SCH (21:00)
[2016-03-29] MEDS: ceFAZolin 2,000 MG in D5% in Water 100 ML IVPB SCH (00:38)
[2016-03-29] MEDS: Ketorolac 15 MG/ML VIAL IVP SCH ×4 (00:38→18:21)
[2016-03-29] MEDS: Ipratropium/Albuterol Neb 3 ML IH SCH ×7 (01:42→23:44)
[2016-03-29 06:38] LABS: Basophils % 0.2 %; Eosinophils % 0.2 %; Hemoglobin 9.1 g/dL (11.5-15.4); Immature Granulocytes % 0.9 % (0-4); Immature Platelets 3.6 % (1.1-6.1); Lymphocytes # 1.5 K/mcL (0.6-4.6); Lymphocytes % 7.5 %; Mean Corpuscular HGB Conc 32.5 g/dL (31.6-35.5); Mean Corpuscular Hemoglobin 30.5 pg (28.0-33.3); Mean Platelet Volume 9.7 fL (9.4-12.4); Monocytes # 1.2 K/mcL (0.0-1.3); Monocytes % 5.9 %; Neutrophils # 16.8 K/mcL (1.6-8.9); Platelet Count 543 K/mcL (140-400); Red Blood Count 2.98 M/mcL (3.82-4.97); Red Cell Distribution Width 13.8 % (11.5-14.5); Segmented Neutrophils % 85.3 %
[2016-03-29 06:45] LABS: BUN/Creatinine Ratio 10 (6-26); Blood Urea Nitrogen 9 mg/dL (7-20); Calcium 7.9 mg/dL (8.6-10.8); Carbon Dioxide 24 mEq/L (19-29); Chloride 100 mEq/L (98-109); Glucose 96 mg/dL (70-99); Osmolality,Calculated 279 (280-300); Potassium 4.1 mEq/L (3.5-4.5); Sodium 135 mEq/L (136-145); eGFR For African Americans > 60 (> 60); eGFR For Non-African Americans > 60 (> 60)
--- NOTE | 2016-03-29 06:46 | Cardiothoracic Progress Note ---
Date of Encounter: 03/29/16 Time of Encounter: 06:44 - Assessment and plan (1) Pneumonia Current Visit: Yes Status: Acute The patient is recovering well from her left thoracotomy and decortication. She was extubated yesterday and is breathing comfortably. Her postoperative pain is well controlled with a Dilaudid TIPPING MACHINE OPERATOR AUTOMATIC. The patient will be transferred to the stepdown unit today. The assessment and plan as outlined above was discussed with the patient and/or family members who expressed understanding and agreement. All questions were answered. Qualifiers: Pneumonia type: due to methicillin-resistant Staphylococcus aureus (MRSA) Laterality: bilateral Lung location: unspecified part of lung Qualified Code (s): J15.212 - Pneumonia due to Methicillin resistant Staphylococcus aureus - Subjective Procedure(s) Performed: POD#1 S/P Left thoracotomy with decortication Interval history: The patient is extubated and breathing comfortably. Her postoperative pain is well controlled with a Dilaudid TIPPING MACHINE OPERATOR AUTOMATIC. She has no other complaints. Vital Signs, Last 4 Hours Temp Pulse Resp BP Pulse Ox 03/29/16 06:00 92 20 125/76 91 L 03/29/16 05:00 77 16 112/63 99 03/29/16 04:37 98.4 F 03/29/16 04:30 65 16 107/61 98 03/29/16 03:00 65 18 107/67 98 Oxgyen Flow Rate Oxygen Flow Rate (LPM) 2 Clinical Data, last 8 Hours Output, Chest Tube Drainage 6 Amount [Left Lateral Chest #1] Output, Chest Tube Drainage 7 Amount [Left Lateral Chest #1] Output, Chest Tube Drainage 5 Amount [Left Lateral Chest #2] Output, Chest Tube Drainage 10 Amount [Left Lateral Chest #2] Weight 03/27/16 03/28/16 03/29/16 23:59 23:59 23:59 Weight 70 kg 70.942 kg - Physical Examination General: Conversant, No Apparent Distress Neck: No JVD, Normal carotid pulses Cardiac: Reg Rate and Rhythm, Normal S1 and S2, No Murmur Incision: No signs of infection, Dry/intact dressing Chest tubes: Minimal drainage, Other (No air leak.) Lungs: Normal Breath Sounds (Right lung zepeda.), Decreased breath sounds (Left lung zepeda.) Neuro: Alert and responsive, No focal deficits noted Vascular: Normal capillary refill Extremities: No Clubbing, No Cyanosis, No Edema, Normal Pulses - Labs 03/29/16 03:32 03/28/16 11:07 Lab Results, Last 24 hours 03/28/16 03/28/16 03/29/16 11:07 11:07 03:32 WBC 27.6 H 19.7 H Hgb 9.8 L 9.1 L Hct 29.9 L 28.0 L Plt Count 464 H 543 H Sodium 137 Potassium 3.6 Chloride 102 Carbon Dioxide 25 BUN 6 L Creatinine 0.82 Glucose 158 H Calcium 7.9 L - Imaging Chest Xray: image reviewed (No pneumothorax. Persistent left basilar atelectasis /airspace disease, but improving.) - VTE Documentation of Mechanical Device: Intermittent pneumatic compression device Consult Discharge Plan - Plan Referrals: Roxie Hinojosa CNP [Primary Care Provider] - 03/28/16 10:30 am (Please follow up as schedule!!!) Prescriptions: Linezolid [Zyvox] 600 mg PO BID #22 tablet
[2016-03-29] MEDS ORDERED: *HR* Heparin 5,000 UNIT/ML VIAL SQ SCH (07:00)
[2016-03-29] MEDS ORDERED: *HR* HYDROmorphone 20 MG/20 ML PCA IVC PRN (07:36)
[2016-03-29] MEDS ORDERED: Naloxone 0.4 MG/ML INJ IVP PRN (07:36)
[2016-03-29] MEDS ORDERED: *HR* LORazepam 0.5 MG TABLET PO PRN (07:36)
[2016-03-29] MEDS ORDERED: Saline Nasal Spray 44 ML BOTTLE NS PRN (07:36)
[2016-03-29] MEDS ORDERED: Mag Hydrox/Al Hydrox/Simeth 30 ML UDC PO PRN (07:36)
[2016-03-29] MEDS ORDERED: Acetaminophen 325 MG TABLET PO PRN (07:36)
[2016-03-29] MEDS ORDERED: GuaiFENesin/Codeine Oral Soln 5 ML UDC PO PRN (07:36)
[2016-03-29] MEDS: Pantoprazole 40 MG VIAL IVP SCH (08:46)
[2016-03-29] MEDS: Ondansetron 4 MG/2 ML VIAL IVP PRN (08:56)
[2016-03-29] MEDS ORDERED: Pantoprazole 40 MG VIAL IVP SCH (09:00)
--- NOTE | 2016-03-29 11:45 | Pulmonology Progress Note ---
<Raoul Morton - Last Filed: 03/29/16 12:43> Time of Encounter: 08:45 Assessment and Plan (1) Pneumonia of left lower lobe due to methicillin-resistant Staphylococcus aureus (MRSA) Current Visit: Yes Status: Acute Patient underwent thoracotomy for decortication of empyema on 03/28/16. Patient remains intubated following procedure, she was moved to ICU for closer observation for extubation later. Previously on Zyvox after several days of vancomycin. Patient successfully extubated on 03/28/16. Patient reports doing well overall, on room air. Continue Zyvox (2) Empyema of lung Current Visit: Yes Status: Acute Patient underwent thoracotomy with decortication on 03/28/16. Patient successfully extubated yesterday. Patient postthoracotomy pain adequately controlled. Continue Zyvox Continue current pain regimen 03/25 discussed plan of care with Dr. Berry 03/26 Continue monitoring for now. Mobilize patient and wean off FIO2 if possible. 03/[address] chest with large loculated pleural effusion and compressive atelectasis. I feel the patient needs decortication and this was discussed with cardiothoracic. (3) Acute respiratory failure with hypoxia Current Visit: Yes Status: Resolved Plan as above (4) Sepsis Current Visit: Yes Status: Acute Due to right lower lobe empyema of MRSA Plan as above Qualifiers: Sepsis type: methicillin resistant Staphylococcus aureus Qualified Code(s) : A41.02 - Sepsis due to Methicillin resistant Staphylococcus aureus (5) DVT prophylaxis Current Visit: Yes Status: Acute GI prophylaxis: Omeprazole when taking by mouth, Protonix if not Due to prophylaxis: EPCDs Neuro/sedation: No concerns at this time Cardiovascular: No concerns at this time Respiratory: Empyema with MRSA, pneumonia for MRSA. Continued with Zyvox. Thoracotomy with decortication today. Successfully extubated 03/28/16, comfortable on room air. Will work on incentive spirometry GI: No concerns this time Renal: No concerns this time Endocrine: No concerns this time Skin: Skin care per ICU protocol Fluids/electrolytes: No concerns at this time Heme: Leukocytosis on account of empyema and recent procedures, we will continue to monitor ID: MRSA pneumonia and empyema, continue Zyvox Social: We will consult social work msw for patient personal stressors and issues Disposition: Patient states/stable for transfer. Will be transferred to [facility] CODE STATUS: Full Subjective Principal diagnosis: Pneumonia Interval history: Patient resting comfortably in bed, reports she is doing well today. She states she has continued pain in her chest from thoracotomy, but this is relatively controlled. She states she is not having much difficulty breathing that is painful to keep rest. She does not report any fevers, chest pain other than described, nausea/vomiting. She does state there are some significant stressors at home related to her personal life and is interested in seeing was resources are available to assist. Objective PUL Vital signs: Last Vital Signs Temp 98.3 F 03/29/16 08:03 Pulse 109 03/29/16 11:10 Resp 16 03/29/16 11:00 BP 111/65 03/29/16 11:00 Pulse Ox 97 03/29/16 11:00 Constitutional: No acute distress, alert, comfortable appearing EENT: Sclera nonicteric, noninjected, oropharynx moist, neck supple Respiratory: Respirations nonlabored, blood flow to auscultation bilaterally, decreased breath sounds on left lobe Cardiovascular: Regular rate and rhythm, no murmurs/rubs/gallops appreciated Gastrointestinal: Normoactive bowel sounds, soft, nontender, nondistended, no guarding or rebound Integumentary: No erythema, no rashes, no pallor appreciated, 2 chest tubes and Extremities: No cyanosis, no edema, no clubbing, pink and warm, pulses present and equal bilaterally Musculoskeletal: No deformities Neurologic: Normal mental status, nonfocal exam, pupils equal round reactive to light bilaterally Psychiatric normal mood, normal affect Results - Laboratory Findings CBC and BMP: 03/29/16 03:32 03/29/16 03:32 ABG ABG pH 7.40 pH Units (7.32-7.45) 03/28/16 11:49 ABG pCO2 48 mmHg (35-45) H 03/28/16 11:49 ABG pO2 66 mmHg (85-104) L 03/28/16 11:49 ABG O2 Saturation 93 % (95-98) L 03/28/16 11:49 PT/INR, D-dimer D-Dimer 584 ng/mLFEU (0-500) H 03/20/16 05:37 Abnormal lab findings: Abnormal lab results WBC 19.7 K/mcL (4.3-11.1) H 03/29/16 03:32 RBC 2.98 M/mcL (3.82-4.97) L 03/29/16 03:32 Hgb 9.1 g/dL (11.5-15.4) L 03/29/16 03:32 Hct 28.0 % (35.3-44.9) L 03/29/16 03:32 Plt Count 543 K/mcL (140-400) H 03/29/16 03:32 Neutrophils # 16.8 K/mcL (1.6-8.9) H 03/29/16 03:32 Reactive Lymphocytes Present (Not Present) A 03/20/16 05:37 D-Dimer 584 ng/mLFEU (0-500) H 03/20/16 05:37 ABG pCO2 48 mmHg (35-45) H 03/28/16 11:49 ABG pO2 66 mmHg (85-104) L 03/28/16 11:49 ABG HCO3 29.7 mEQ/L (21-27) H 03/28/16 11:49 ABG Total CO2 31.2 mEq/L (20-26) H 03/28/16 11:49 ABG O2 Saturation 93 % (95-98) L 03/28/16 11:49 ABG Base Excess 4.2 mEq/L (-2.0 to 3.0) H 03/28/16 11:49 Sodium 135 mEq/L (136-145) L 03/29/16 03:32 POC Glucose 139 (58-89) H 03/28/16 10:49 Calculated Osmolality 279 (280-300) L 03/29/16 03:32 Calcium 7.9 mg/dL (8.6-10.8) L 03/29/16 03:32 C-Reactive Protein 255 mg/L (Less than 5) H 03/23/16 04:39 B-Natriuretic Peptide 183 pg/mL (0-100) H 03/23/16 04:39 Albumin 2.0 g/dL (3.5-5.0) L 03/23/16 04:39 Globulin 4.0 g/dL (2.4-3.5) H 03/23/16 04:39 Albumin/Globulin Ratio 0.5 (1.1-2.2) L 03/23/16 04:39 Ur Specific [place] 1.006 (1.010-1.025) L 03/20/16 05:30 Urine Ketones 40 mg/dL (Negative) H 03/20/16 05:30 Urine Blood Large (Negative) H 03/20/16 05:30 Urine Microscopic RBC 3-5 per hpf (0-3) H 03/20/16 05:30 Urine Bacteria Moderate per hpf (None-Few) H 03/20/16 05:30 Pleural Appearance Cloudy (Clear) A 03/23/16 10:00 Pleural RBC 0.009 M/mcL (0.000-0.002) H 03/23/16 10:00 Pleural Tot Nuc Cell > 20574 TNC/mcL (0-1000) H 03/23/16 10:00 Vancomycin Trough 20.9 mcg/mL (10-20) H* 03/25/16 19:38 - Microbiology Findings Microbiology Findings: Microbiology, Last 48 Hours 03/28/16 08:40 Body Fluid Culture - Preliminary Pleural Fluid 03/23/16 07:54 Blood Culture - Final Peripheral Venipuncture No growth. 03/28/16 08:40 Acid Fast Stain - Final Pleural Fluid 03/23/16 10:00 Anaerobic Culture - Final Pleural Fluid No anaerobes were recovered. - Clinical Findings Intake & Output: Intake & Output 03/28/16 03/29/16 03/29/16 23:59 07:59 15:59 Intake Total 356 / 356 100 / 100 Output Total 330 / 330 478 / 478 322 / 322 Balance 26 / 26 -378 / -378 -322 / -322 Weight 70.942 kg - VTE Documentation of Mechanical Device: Intermittent pneumatic compression device Consult Discharge Plan - Plan Referrals: Roxie Hinojosa CNP [Primary Care Provider] - 03/28/16 10:30 am (Please follow up as schedule!!!) Prescriptions: Linezolid [Zyvox] 600 mg PO BID #22 tablet <Monae Forman - Last Filed: 03/29/16 18:02> Date of Encounter: 03/29/16 Assessment and Plan (1) Pneumonia of left lower lobe due to methicillin-resistant Staphylococcus aureus (MRSA) Current Visit: Yes Status: Acute (2) Empyema of lung Current Visit: Yes Status: Acute (3) Acute respiratory failure with hypoxia Current Visit: Yes Status: Resolved Objective PUL Vital signs: Last Vital Signs Temp 98.3 F 03/29/16 08:03 Pulse 109 03/29/16 11:10 Resp 16 03/29/16 11:00 BP 111/65 03/29/16 11:00 Pulse Ox 97 03/29/16 11:00 Results - Laboratory Findings CBC and BMP: 03/29/16 03:32 03/29/16 03:32 ABG ABG pH 7.40 pH Units (7.32-7.45) 03/28/16 11:49 ABG pCO2 48 mmHg (35-45) H 03/28/16 11:49 ABG pO2 66 mmHg (85-104) L 03/28/16 11:49 ABG O2 Saturation 93 % (95-98) L 03/28/16 11:49 PT/INR, D-dimer D-Dimer 584 ng/mLFEU (0-500) H 03/20/16 05:37 Abnormal lab findings: Abnormal lab results WBC 19.7 K/mcL (4.3-11.1) H 03/29/16 03:32 RBC 2.98 M/mcL (3.82-4.97) L 03/29/16 03:32 Hgb 9.1 g/dL (11.5-15.4) L 03/29/16 03:32 Hct 28.0 % (35.3-44.9) L 03/29/16 03:32 Plt Count 543 K/mcL (140-400) H 03/29/16 03:32 Neutrophils # 16.8 K/mcL (1.6-8.9) H 03/29/16 03:32 Reactive Lymphocytes Present (Not Present) A 03/20/16 05:37 D-Dimer 584 ng/mLFEU (0-500) H 03/20/16 05:37 ABG pCO2 48 mmHg (35-45) H 03/28/16 11:49 ABG pO2 66 mmHg (85-104) L 03/28/16 11:49 ABG HCO3 29.7 mEQ/L (21-27) H 03/28/16 11:49 ABG Total CO2 31.2 mEq/L (20-26) H 03/28/16 11:49 ABG O2 Saturation 93 % (95-98) L 03/28/16 11:49 ABG Base Excess 4.2 mEq/L (-2.0 to 3.0) H 03/28/16 11:49 Sodium 135 mEq/L (136-145) L 03/29/16 03:32 POC Glucose 139 (58-89) H 03/28/16 10:49 Calculated Osmolality 279 (280-300) L 03/29/16 03:32 Calcium 7.9 mg/dL (8.6-10.8) L 03/29/16 03:32 C-Reactive Protein 255 mg/L (Less than 5) H 03/23/16 04:39 B-Natriuretic Peptide 183 pg/mL (0-100) H 03/23/16 04:39 Albumin 2.0 g/dL (3.5-5.0) L 03/23/16 04:39 Globulin 4.0 g/dL (2.4-3.5) H 03/23/16 04:39 Albumin/Globulin Ratio 0.5 (1.1-2.2) L 03/23/16 04:39 Ur Specific [place] 1.006 (1.010-1.025) L 03/20/16 05:30 Urine Ketones 40 mg/dL (Negative) H 03/20/16 05:30 Urine Blood Large (Negative) H 03/20/16 05:30 Urine Microscopic RBC 3-5 per hpf (0-3) H 03/20/16 05:30 Urine Bacteria Moderate per hpf (None-Few) H 03/20/16 05:30 Pleural Appearance Cloudy (Clear) A 03/23/16 10:00 Pleural RBC 0.009 M/mcL (0.000-0.002) H 03/23/16 10:00 Pleural Tot Nuc Cell > 42080 TNC/mcL (0-1000) H 03/23/16 10:00 Vancomycin Trough 20.9 mcg/mL (10-20) H* 03/25/16 19:38 - Microbiology Findings Microbiology Findings: Microbiology, Last 48 Hours 03/28/16 08:40 Body Fluid Culture - Preliminary Pleural Fluid 03/23/16 07:54 Blood Culture - Final Peripheral Venipuncture No growth. 03/28/16 08:40 Acid Fast Stain - Final Pleural Fluid 03/23/16 10:00 Anaerobic Culture - Final Pleural Fluid No anaerobes were recovered. - Clinical Findings Intake & Output: Intake & Output 03/28/16 03/29/16 03/29/16 23:59 07:59 15:59 Intake Total 356 / 356 100 / 100 Output Total 330 / 330 478 / 478 322 / 322 Balance -378 / -378 -322 / -322 Weight 70.942 kg - Attending Attestation I examined this patient and my medical decision-making was reviewed with the ACCESS REGISTRAR/PA/Advanced Practice Nurse/Resident Physician. I agree with the documented findings, disposition and treatment plan as described except to the extent set forth below. Patient seen and examined. Labs, radiology, chart personally reviewed. Agree with resident's history and physical, assessment, plan with following comments: PARTS ADMINISTRATOR: Patient follows commands, Pulmonary: Acceptable oxygenation and ventilation. Patient is feeling better and chest tube per cardiothoracic. Cardiovascular: stable GI: Nutrition per dietary and GI prophylaxis per routine Heme: DVT prophylaxis per routine ID: Continue antibiotics and plan to de-escalation Renal; urine out put and renal funtion reviewed Endorcine: blood glucose is monitored Lines: all lines checked and no evidence of infections Skin: skin care to prevent pressure ulcers per nursing routine care
[2016-03-29] MEDS: 0.9 % Sodium Chloride w KCl 20 MEQ/1,000 ML MLS IV SCH (15:44)
[2016-03-29] MEDS: *HR* OxyCODONE/APAP 5/325 TABLET PO PRN (20:52)
[2016-03-30] MEDS: Ketorolac 15 MG/ML VIAL IVP SCH ×3 (00:38→12:50)
[2016-03-30] MEDS: Ipratropium/Albuterol Neb 3 ML IH SCH ×5 (03:58→21:08)
[2016-03-30 05:10] LABS: Basophils % 0.2 %; Eosinophils # 0.3 K/mcL (0.0-0.6); Eosinophils % 2.7 %; Hematocrit 24.9 % (35.3-44.9); Hemoglobin 8.1 g/dL (11.5-15.4); Immature Granulocytes % 0.8 % (0-4); Lymphocytes # 1.6 K/mcL (0.6-4.6); Lymphocytes % 15.1 %; Mean Corpuscular HGB Conc 32.5 g/dL (31.6-35.5); Mean Corpuscular Hemoglobin 30.7 pg (28.0-33.3); Mean Corpuscular Volume 94.3 fL (83.0-100.0); Mean Platelet Volume 9.4 fL (9.4-12.4); Monocytes # 0.8 K/mcL (0.0-1.3); Monocytes % 7.4 %; Neutrophils # 7.8 K/mcL (1.6-8.9); Platelet Count 499 K/mcL (140-400); Red Blood Count 2.64 M/mcL (3.82-4.97); Red Cell Distribution Width 13.5 % (11.5-14.5); Segmented Neutrophils % 73.8 %
[2016-03-30 05:12] LABS: BUN/Creatinine Ratio 9 (6-26); Blood Urea Nitrogen 7 mg/dL (7-20); Calcium 7.7 mg/dL (8.6-10.8); Carbon Dioxide 27 mEq/L (19-29); Chloride 103 mEq/L (98-109); Glucose 98 mg/dL (70-99); Osmolality,Calculated 282 (280-300); Potassium 3.9 mEq/L (3.5-4.5); Sodium 137 mEq/L (136-145); eGFR For African Americans > 60 (> 60); eGFR For Non-African Americans > 60 (> 60)
--- NOTE | 2016-03-30 08:39 | Cardiothoracic Progress Note ---
Date of Encounter: 03/30/16 Time of Encounter: 08:36 - Assessment and plan (1) Pneumonia Current Visit: Yes Status: Acute The patient is recovering well from her left thoracotomy and decortication. She is breathing comfortably. Her postoperative pain is well controlled with a Dilaudid SINGLE NEEDLE OPERATOR. The assessment and plan as outlined above was discussed with the patient and/or family members who expressed understanding and agreement. All questions were answered. Qualifiers: Pneumonia type: due to methicillin-resistant Staphylococcus aureus (MRSA) Laterality: bilateral Lung location: unspecified part of lung Qualified Code (s): J15.212 - Pneumonia due to Methicillin resistant Staphylococcus aureus - Subjective Procedure(s) Performed: POD#2 S/P Left thoracotomy with decortication Interval history: The patient is breathing comfortably. Her postoperative pain is well controlled with a Dilaudid SINGLE NEEDLE OPERATOR. She has no other complaints. Oxgyen Flow Rate Oxygen Flow Rate (LPM) 1 Clinical Data, last 8 Hours Output, Chest Tube Drainage 0 Amount [Left Lateral Chest #1] Output, Chest Tube Drainage 0 Amount [Left Lateral Chest #2] Weight 03/28/16 03/29/16 03/30/16 23:59 23:59 23:59 Weight 70.942 kg 70.6 kg - Physical Examination General: Conversant, No Apparent Distress Neck: No JVD Cardiac: Reg Rate and Rhythm, Normal S1 and S2, No Murmur Incision: No signs of infection, Dry/intact dressing Chest tubes: Minimal drainage, Other (No air leak.) Lungs: Normal Breath Sounds (Right lung zepeda.), Decreased breath sounds (Left base.) Neuro: Alert and responsive, No focal deficits noted Vascular: Normal capillary refill Extremities: No Clubbing, No Cyanosis, No Edema, Normal Pulses - Labs 03/30/16 04:14 03/30/16 04:14 Lab Results, Last 24 hours 03/30/16 03/30/16 04:14 04:14 WBC 10.6 Hgb 8.1 L Hct 24.9 L Plt Count 499 H Sodium 137 Potassium 3.9 Chloride 103 Carbon Dioxide 27 BUN 7 Creatinine 0.81 Glucose 98 Calcium 7.7 L - Imaging Chest Xray: image reviewed (No significant change and left basilar infiltrate.) - VTE Documentation of Mechanical Device: Intermittent pneumatic compression device Consult Discharge Plan - Plan Referrals: Roxie Hinojosa, LOAN SERVICES PROFESSIONAL [Primary Care Provider] - 03/28/16 10:30 am (Please follow up as schedule!!!) Prescriptions: Linezolid [Zyvox] 600 mg PO BID #22 tablet
[2016-03-30] MEDS: Pantoprazole 40 MG VIAL IVP SCH (08:40)
[2016-03-30] MEDS: *HR* OxyCODONE/APAP 5/325 TABLET PO PRN ×2 (09:51→20:15)
--- NOTE | 2016-03-30 12:05 | Pulmonology Progress Note ---
Date of Encounter: 03/30/16 Time of Encounter: 10:45 Assessment and Plan (1) Pneumonia of left lower lobe due to methicillin-resistant Staphylococcus aureus (MRSA) Current Visit: Yes Status: Acute Continue Vancomycin and will consult cardiothoracic. Will stop Zosyn and pharmacy to dose vancomycin. Need to make sure level is therapeutic. Discussed with patient about her disease as well as to her friend. They were asking about transferring patient to a different hospital and explained to them , I feel management will be the same. 03/25 I discussed with primary team to consider to change Vancomycin to Zyvox, which will be easier for patient to transition to oral when she is discharged home. I explained to patient this will take few weeks before she feels better Explained to pharmacist to keep monitoring vancomycin level to be therapeutic. 03/26 patient clinically is feeling better and patient on Zyvox now. WBC slightly increased. If doesn't improve and clinically patient worsen, then will plan to to repeat CT chest tomorrow. This was discussed with primary team and patient. 03/27 patient clinically feels better and continue antibiotics. Subsequently patient had a CT chest 03/30 patient is doing better and she is able to breath deeper. She still have chest tube. Cardiothoracic manage chest tube. (2) Empyema of lung Current Visit: Yes Status: Acute Since there is bacteria in the fluid, it will be defined as empyema and will consult Dr. Berry. 03/25 discussed plan of care with Dr. Berry 03/26 Continue monitoring for now. Mobilize patient and wean off FIO2 if possible. 03/[address] chest with large loculated pleural effusion and compressive atelectasis. I feel the patient needs decortication and this was discussed with cardiothoracic. 03/30 s/p decortication and patient is feeling better. Continue current antibiotics (3) Acute respiratory failure with hypoxia Current Visit: Yes Status: Resolved Wean off FIO2 to keep SPO2 around 92% . Subjective Principal diagnosis: Pneumonia Interval history: Patient feeling better and she is able to cough and she is able to take deep breath. Chest tube still draining. Objective PUL Vital signs: Last Vital Signs Temp 97.7 F 03/30/16 08:26 Pulse 97 03/30/16 08:26 Resp 18 03/30/16 08:26 BP 128/99 03/30/16 08:26 Pulse Ox 94 L 03/30/16 08:26 General appearance: no acute distress, alert Eyes: nonicteric ENT: oropharynx moist Neck: supple, no lymphadenopathy Effort: normal Auscultation: left: diminished breath sounds (chest tubes in place), right: clear Cardiovascular: regular rate and rhythm Gastrointestinal: normoactive bowel sounds Extremities: no cyanosis, no edema normal mental status, non-focal exam mood appropriate Results - Laboratory Findings CBC and BMP: 03/30/16 04:14 03/30/16 04:14 ABG ABG pH 7.40 pH Units (7.32-7.45) 03/28/16 11:49 ABG pCO2 48 mmHg (35-45) H 03/28/16 11:49 ABG pO2 66 mmHg (85-104) L 03/28/16 11:49 ABG O2 Saturation 93 % (95-98) L 03/28/16 11:49 PT/INR, D-dimer D-Dimer 584 ng/mLFEU (0-500) H 03/20/16 05:37 Abnormal lab findings: Abnormal lab results RBC 2.64 M/mcL (3.82-4.97) L 03/30/16 04:14 Hgb 8.1 g/dL (11.5-15.4) L 03/30/16 04:14 Hct 24.9 % (35.3-44.9) L 03/30/16 04:14 Plt Count 499 K/mcL (140-400) H 03/30/16 04:14 Reactive Lymphocytes Present (Not Present) A 03/20/16 05:37 D-Dimer 584 ng/mLFEU (0-500) H 03/20/16 05:37 ABG pCO2 48 mmHg (35-45) H 03/28/16 11:49 ABG pO2 66 mmHg (85-104) L 03/28/16 11:49 ABG HCO3 29.7 mEQ/L (21-27) H 03/28/16 11:49 ABG Total CO2 31.2 mEq/L (20-26) H 03/28/16 11:49 ABG O2 Saturation 93 % (95-98) L 03/28/16 11:49 ABG Base Excess 4.2 mEq/L (-2.0 to 3.0) H 03/28/16 11:49 POC Glucose 139 (58-89) H 03/28/16 10:49 Calcium 7.7 mg/dL (8.6-10.8) L 03/30/16 04:14 C-Reactive Protein 255 mg/L (Less than 5) H 03/23/16 04:39 B-Natriuretic Peptide 183 pg/mL (0-100) H 03/23/16 04:39 Albumin 2.0 g/dL (3.5-5.0) L 03/23/16 04:39 Globulin 4.0 g/dL (2.4-3.5) H 03/23/16 04:39 Albumin/Globulin Ratio 0.5 (1.1-2.2) L 03/23/16 04:39 Ur Specific [place] 1.006 (1.010-1.025) L 03/20/16 05:30 Urine Ketones 40 mg/dL (Negative) H 03/20/16 05:30 Urine Blood Large (Negative) H 03/20/16 05:30 Urine Microscopic RBC 3-5 per hpf (0-3) H 03/20/16 05:30 Urine Bacteria Moderate per hpf (None-Few) H 03/20/16 05:30 Pleural Appearance Cloudy (Clear) A 03/23/16 10:00 Pleural RBC 0.009 M/mcL (0.000-0.002) H 03/23/16 10:00 Pleural Tot Nuc Cell > 66925 TNC/mcL (0-1000) H 03/23/16 10:00 Vancomycin Trough 20.9 mcg/mL (10-20) H* 03/25/16 19:38 - Microbiology Findings Microbiology Findings: Microbiology, Last 48 Hours 03/28/16 08:40 Body Fluid Culture - Preliminary Pleural Fluid 03/23/16 07:54 Blood Culture - Final Peripheral Venipuncture No growth. 03/28/16 08:40 Acid Fast Stain - Final Pleural Fluid 03/23/16 10:00 Anaerobic Culture - Final Pleural Fluid No anaerobes were recovered. - Diagnostic Findings Chest x-ray: report reviewed, image reviewed - Clinical Findings Intake & Output: Intake & Output 03/29/16 03/30/16 03/30/16 23:59 07:59 15:59 Intake Total 1120 / 1120 662 / 662 120 / 120 Output Total 650 / 650 1030 / 1030 635 / 635 Balance 470 / 470 -368 / -368 -515 / -515 Weight 70.6 kg - VTE Documentation of Mechanical Device: Intermittent pneumatic compression device Consult Discharge Plan - Plan Referrals: Roxie Hinojosa CNP [Primary Care Provider] - 03/28/16 10:30 am (Please follow up as schedule!!!) Prescriptions: Linezolid [Zyvox] 600 mg PO BID #22 tablet
--- NOTE | 2016-03-30 13:55 | Internal Med Progress Note ---
Date of Encounter: 03/30/16 Time of Encounter: 10:00 - Assessment and plan (1) DVT prophylaxis Current Visit: Yes Status: Acute Assessment and plan: Heparin subcutaneously (2) Empyema of lung Current Visit: Yes Status: Acute Assessment and plan: Had Decortication by thoracic surgery. Still on chest tube. Continue close monitoring and antibiotic treatment. Patient is at high risk because she needed a surgical intervention (3) Pneumonia of left lower lobe due to methicillin-resistant Staphylococcus aureus (MRSA) Current Visit: Yes Status: Acute Assessment and plan: Continue Linezolid per culture results. WBC count is getting down. (4) Acute respiratory failure with hypoxia Current Visit: Yes Status: Resolved Assessment and plan: Continue O2 supplementation. Improved after treatment and the surgical procedure. - Time Spent With Patient Greater than 35 minutes - Subjective Interval history: Patient is a 40-year-old female admitted for pneumonia. Patient developed larger pleural effusion, she underwent thoracentesis and finally Decortication on 03/28/[address] Berry. After procedure patient is stable and transferred to regular floor from ICU. I saw and examined the patient today. She is awake alert and oriented 3, mild cough, no fever, no shortness of breath, no nausea, no vomiting. Complains of pain on the left side, where there is chest tube placed. Pleural fluid culture shows MRSA. Patient is on Linezolid now. We will closely monitor patient and continue current treatment. - Constitutional Vitals: Temp Pulse Resp BP Pulse Ox 97.7 F 97 18 128/99 94 L 03/30/16 08:26 03/30/16 08:26 03/30/16 08:26 03/30/16 08:26 03/30/16 08:26 General appearance: Present: cooperative, mild distress, A&O X 3, morbidly obese , pleasant, answers questions appropriately - Head Head exam: Present: atraumatic, normocephalic - Eye Eye exam: Present: PERRL, conjuntiva pink, sclera anicteric Pupils: Present: PERRL - Neck Neck exam general surgery: Present: supple, trachea midline. Absent: lymphadenopathy - Respiratory Respiratory exam: Present: chest wall tenderness (On left side), CTAB. Absent: accessory muscle use, rales, rhonchi, wheezes - Cardiovascular Cardiovascular exam: Present: RRR, +S1, +S2. Absent: diastolic murmur, gallop, rubs, systolic murmur - GI/Abdominal GI/Abdominal exam: Present: normal bowel sounds, soft, no peritoneal signs. Absent: distended, tenderness - Extremities Exam Extremities exam: Present: warm, radial pulses palpable and symetrical. Absent : calf tenderness, cyanotic, pedal edema - Neurological Exam Neurological exam: Present: CN II-XII intact, oriented X3, no focal deficits. Absent: pronater drift, facial droop, speech deficit - Skin Skin exam: Present: dry, intact Internal Medicine: Result - Labs CBC & Chem 7: 03/30/16 04:14 03/30/16 04:14 Labs: Short CBC 03/30/16 Range/Units 04:14 WBC 10.6 (4.3-11.1) K/mcL Hgb 8.1 L (11.5-15.4) g/dL Hct 24.9 L (35.3-44.9) % Plt Count 499 H (140-400) K/mcL Neutrophils # 7.8 (1.6-8.9) K/mcL BMP 03/30/16 04:14 Sodium 137 Potassium 3.9 Chloride 103 Carbon Dioxide 27 BUN 7 Creatinine 0.81 Glucose 98 Calcium 7.7 L - ABG Interpretation ABG results: ABG ABG pH 7.40 pH Units (7.32-7.45) 03/28/16 11:49 ABG pCO2 48 mmHg (35-45) H 03/28/16 11:49 ABG pO2 66 mmHg (85-104) L 03/28/16 11:49 ABG O2 Saturation 93 % (95-98) L 03/28/16 11:49 PT/INR, D-dimer D-Dimer 584 ng/mLFEU (0-500) H 03/20/16 05:37 - Impressions Impressions Chest X-Ray 03/30/16 07:06 IMPRESSION: No change. D/ / 03/30/2016 08:34:13 Mayito Garcia MD / [email or web address] Interpreting Provider: Mayito Garcia MD - VTE Documentation of Mechanical Device: Intermittent pneumatic compression device Consult Discharge Plan - Plan Referrals: Roxie Hinojosa CNP [Primary Care Provider] - 03/28/16 10:30 am (Please follow up as schedule!!!) Prescriptions: Linezolid [Zyvox] 600 mg PO BID #22 tablet
[2016-03-30] MEDS: 0.9 % Sodium Chloride w KCl 20 MEQ/1,000 ML MLS IV SCH (15:17)
[2016-03-30] MEDS: *HR* Heparin 5,000 UNIT/ML VIAL SQ SCH (18:12)
[2016-03-31] MEDS: Ipratropium/Albuterol Neb 3 ML IH SCH ×6 (01:28→20:32)
[2016-03-31 04:05] LABS: Basophils % 0.3 %; Eosinophils # 0.3 K/mcL (0.0-0.6); Eosinophils % 3.2 %; Hematocrit 24.8 % (35.3-44.9); Hemoglobin 8.2 g/dL (11.5-15.4); Immature Granulocytes % 0.7 % (0-4); Lymphocytes # 1.8 K/mcL (0.6-4.6); Lymphocytes % 16.5 %; Mean Corpuscular HGB Conc 33.1 g/dL (31.6-35.5); Mean Corpuscular Hemoglobin 31.2 pg (28.0-33.3); Mean Corpuscular Volume 94.3 fL (83.0-100.0); Mean Platelet Volume 9.3 fL (9.4-12.4); Monocytes # 0.7 K/mcL (0.0-1.3); Monocytes % 6.6 %; Neutrophils # 7.8 K/mcL (1.6-8.9); Platelet Count 555 K/mcL (140-400); Red Blood Count 2.63 M/mcL (3.82-4.97); Red Cell Distribution Width 13.4 % (11.5-14.5); Segmented Neutrophils % 72.7 %
[2016-03-31 04:18] LABS: BUN/Creatinine Ratio 7 (6-26); Calcium 8.2 mg/dL (8.6-10.8); Carbon Dioxide 26 mEq/L (19-29); Chloride 104 mEq/L (98-109); Glucose 97 mg/dL (70-99); Osmolality,Calculated 281 (280-300); Potassium 4.1 mEq/L (3.5-4.5); Sodium 137 mEq/L (136-145); eGFR For African Americans > 60 (> 60); eGFR For Non-African Americans > 60 (> 60)
[2016-03-31 04:19] LABS: Blood Urea Nitrogen 5 mg/dL (7-20)
[2016-03-31] MEDS: *HR* Heparin 5,000 UNIT/ML VIAL SQ SCH ×2 (07:05→19:27)
[2016-03-31] MEDS: Pantoprazole 40 MG VIAL IVP SCH (08:22)
--- NOTE | 2016-03-31 12:09 | Internal Med Progress Note ---
Date of Encounter: 03/31/16 Time of Encounter: 09:00 - Assessment and plan (1) DVT prophylaxis Current Visit: Yes Status: Acute Assessment and plan: Heparin subcutaneously (2) Empyema of lung Current Visit: Yes Status: Acute Assessment and plan: Had Decortication by thoracic surgery. Still on chest tube. Continue close monitoring and antibiotic treatment. Patient is at high risk because she needed a surgical intervention (3) Pneumonia of left lower lobe due to methicillin-resistant Staphylococcus aureus (MRSA) Current Visit: Yes Status: Acute Assessment and plan: Continue Linezolid per culture results. WBC count is getting down. (4) Acute respiratory failure with hypoxia Current Visit: Yes Status: Resolved Assessment and plan: Continue O2 supplementation. Improved after treatment and the surgical procedure. - Time Spent With Patient Greater than 35 minutes - Subjective Interval history: Patient is a 40-year-old female admitted for pneumonia. Patient developed larger pleural effusion, she underwent thoracentesis and finally Decortication on 03/28/[address] Berry. After procedure patient is stable and transferred to regular floor from ICU. I saw and examined the patient today. She is awake alert and oriented 3, mild cough, no fever, no shortness of breath, no nausea, no vomiting. Complains of pain on the left side, where there is chest tube placed. Pleural fluid culture shows MRSA. Patient is on Linezolid now. We will closely monitor patient and continue current treatment. - Constitutional Vitals: Temp Pulse Resp BP Pulse Ox 98.1 F 95 22 129/91 93 L 03/31/16 11:39 03/31/16 11:40 03/31/16 11:39 03/31/16 11:39 03/31/16 11:39 General appearance: Present: cooperative, mild distress, A&O X 3, morbidly obese , pleasant, answers questions appropriately - Head Head exam: Present: atraumatic, normocephalic - Eye Eye exam: Present: PERRL, conjuntiva pink, sclera anicteric Pupils: Present: PERRL - Neck Neck exam general surgery: Present: supple, trachea midline. Absent: lymphadenopathy - Respiratory Respiratory exam: Present: chest wall tenderness (On left lower chest), CTAB. Absent: accessory muscle use, rales, rhonchi, wheezes - Cardiovascular Cardiovascular exam: Present: RRR, +S1, +S2. Absent: diastolic murmur, gallop, rubs, systolic murmur - GI/Abdominal GI/Abdominal exam: Present: normal bowel sounds, soft, no peritoneal signs. Absent: distended, tenderness - Extremities Exam Extremities exam: Present: warm, radial pulses palpable and symetrical. Absent : calf tenderness, cyanotic, pedal edema - Neurological Exam Neurological exam: Present: CN II-XII intact, oriented X3, no focal deficits. Absent: pronater drift, facial droop, speech deficit - Skin Skin exam: Present: dry, intact Internal Medicine: Result - Labs CBC & Chem 7: 03/31/16 03:33 03/31/16 03:33 Labs: Short CBC 03/31/16 Range/Units 03:33 WBC 10.7 (4.3-11.1) K/mcL Hgb 8.2 L (11.5-15.4) g/dL Hct 24.8 L (35.3-44.9) % Plt Count 555 H (140-400) K/mcL Neutrophils # 7.8 (1.6-8.9) K/mcL BMP 03/31/16 03:33 Sodium 137 Potassium 4.1 Chloride 104 Carbon Dioxide 26 BUN 5 L Creatinine 0.73 Glucose 97 Calcium 8.2 L - ABG Interpretation ABG results: ABG ABG pH 7.40 pH Units (7.32-7.45) 03/28/16 11:49 ABG pCO2 48 mmHg (35-45) H 03/28/16 11:49 ABG pO2 66 mmHg (85-104) L 03/28/16 11:49 ABG O2 Saturation 93 % (95-98) L 03/28/16 11:49 PT/INR, D-dimer D-Dimer 584 ng/mLFEU (0-500) H 03/20/16 05:37 - Impressions Impressions Chest X-Ray 03/31/16 06:00 IMPRESSION: 1. Stable lines and tubes. 2. Stable patchy airspace opacities with more focal opacities in the bilateral bases with small effusions. D/ / 03/31/2016 08:38:31 Shantal Daley MD / [email or web address] Interpreting Provider: Shantal Daley MD - VTE Documentation of Mechanical Device: Intermittent pneumatic compression device Consult Discharge Plan - Plan Referrals: Roxie Hinojosa CNP [Primary Care Provider] - 04/11/16 2:30 pm () Prescriptions: Linezolid [Zyvox] 600 mg PO BID #22 tablet
--- NOTE | 2016-03-31 12:29 | Pulmonology Progress Note ---
Date of Encounter: 03/31/16 Time of Encounter: 12:27 Assessment and Plan (1) Empyema of lung Current Visit: Yes Status: Acute MRSA identified from pleural effusion hence empyema for which patient underwent decortication. Continue antibiotic therapy (Zyvox) for at least 2 weeks. Chest tube management per cardiothoracic surgery service. Call if any questions arise. Ed [facility] [phone] Code(s): J86.9 - Pyothorax without fistula SNOMED Code(s): 882098731 Subjective Principal diagnosis: Pneumonia Interval history: The patient underwent a left decortication for treatment of an MRSA empyema. She still has [address] andfair amount of discomfort but otherwise feels reasonably well. I see no air leak from the chest tubes at least during my evaluation. Otherwise, the patient denies any specific complaints at this time. Objective PUL Vital signs: Last Vital Signs Temp 98.1 F 03/31/16 11:39 Pulse 95 03/31/16 11:40 Resp 22 03/31/16 11:39 BP 129/91 03/31/16 11:39 Pulse Ox 93 L 03/31/16 11:39 General appearance: no acute distress Eyes: nonicteric ENT: oropharynx moist Auscultation: left: diminished breath sounds, other ([address]) Cardiovascular: regular rate and rhythm Gastrointestinal: normoactive bowel sounds, non-distended Integumentary: normal, other (Several tattoos) Extremities: no cyanosis Musculoskeletal: no deformities normal mental status, non-focal exam Results - Laboratory Findings CBC and BMP: 03/31/16 03:33 03/31/16 03:33 ABG ABG pH 7.40 pH Units (7.32-7.45) 03/28/16 11:49 ABG pCO2 48 mmHg (35-45) H 03/28/16 11:49 ABG pO2 66 mmHg (85-104) L 03/28/16 11:49 ABG O2 Saturation 93 % (95-98) L 03/28/16 11:49 PT/INR, D-dimer D-Dimer 584 ng/mLFEU (0-500) H 03/20/16 05:37 Abnormal lab findings: Abnormal lab results RBC 2.63 M/mcL (3.82-4.97) L 03/31/16 03:33 Hgb 8.2 g/dL (11.5-15.4) L 03/31/16 03:33 Hct 24.8 % (35.3-44.9) L 03/31/16 03:33 Plt Count 555 K/mcL (140-400) H 03/31/16 03:33 MPV 9.3 fL (9.4-12.4) L 03/31/16 03:33 Reactive Lymphocytes Present (Not Present) A 03/20/16 05:37 D-Dimer 584 ng/mLFEU (0-500) H 03/20/16 05:37 ABG pCO2 48 mmHg (35-45) H 03/28/16 11:49 ABG pO2 66 mmHg (85-104) L 03/28/16 11:49 ABG HCO3 29.7 mEQ/L (21-27) H 03/28/16 11:49 ABG Total CO2 31.2 mEq/L (20-26) H 03/28/16 11:49 ABG O2 Saturation 93 % (95-98) L 03/28/16 11:49 ABG Base Excess 4.2 mEq/L (-2.0 to 3.0) H 03/28/16 11:49 BUN 5 mg/dL (7-20) L 03/31/16 03:33 POC Glucose 139 (58-89) H 03/28/16 10:49 Calcium 8.2 mg/dL (8.6-10.8) L 03/31/16 03:33 C-Reactive Protein 255 mg/L (Less than 5) H 03/23/16 04:39 B-Natriuretic Peptide 183 pg/mL (0-100) H 03/23/16 04:39 Albumin 2.0 g/dL (3.5-5.0) L 03/23/16 04:39 Globulin 4.0 g/dL (2.4-3.5) H 03/23/16 04:39 Albumin/Globulin Ratio 0.5 (1.1-2.2) L 03/23/16 04:39 Ur Specific [place] 1.006 (1.010-1.025) L 03/20/16 05:30 Urine Ketones 40 mg/dL (Negative) H 03/20/16 05:30 Urine Blood Large (Negative) H 03/20/16 05:30 Urine Microscopic RBC 3-5 per hpf (0-3) H 03/20/16 05:30 Urine Bacteria Moderate per hpf (None-Few) H 03/20/16 05:30 Pleural Appearance Cloudy (Clear) A 03/23/16 10:00 Pleural RBC 0.009 M/mcL (0.000-0.002) H 03/23/16 10:00 Pleural Tot Nuc Cell > 92036 TNC/mcL (0-1000) H 03/23/16 10:00 Vancomycin Trough 20.9 mcg/mL (10-20) H* 03/25/16 19:38 - Microbiology Findings Microbiology Findings: Microbiology, Last 48 Hours 03/28/16 08:40 Anaerobic Culture - Preliminary Pleural Fluid At this time, no anaerobic growth is present. The culture will be finalized after 5 days of incubation. 03/28/16 08:40 Body Fluid Culture - Final Pleural Fluid - Clinical Findings Intake & Output: Intake & Output 03/30/16 03/31/16 03/31/16 23:59 07:59 15:59 Intake Total 330 / 330 700 / 700 240 / 240 Output Total 975 / 975 1000 / 1000 390 / 390 Balance -645 / -645 -300 / -300 -150 / -150 Weight 70.6 kg - VTE Documentation of Mechanical Device: Intermittent pneumatic compression device Consult Discharge Plan - Plan Referrals: Roxie Hinojosa CNP [Primary Care Provider] - 04/11/16 2:30 pm () Prescriptions: Linezolid [Zyvox] 600 mg PO BID #22 tablet
[2016-03-31] MEDS: Ondansetron 4 MG/2 ML VIAL IVP PRN ×2 (12:42→18:45)
--- NOTE | 2016-03-31 15:58 | Cardiothoracic Progress Note ---
Date of Encounter: 03/31/16 Time of Encounter: 15:57 - Assessment and plan (1) Empyema of lung Current Visit: Yes Status: Acute The assessment and plan as outlined above was discussed with the patient and/or family members who expressed understanding and agreement. All questions were answered. Hopefully, we can remove the chest tubes in 1-2 days. - Subjective Interval history: The patient has no specific complaints other than mild postoperative pain. Vital Signs, Last 4 Hours Resp Pulse Ox 03/31/16 15:29 20 92 L 03/31/16 12:46 20 Oxgyen Flow Rate Oxygen Flow Rate (LPM) 1 Clinical Data, last 8 Hours Output, Chest Tube Drainage 0 Amount [Left Lateral Chest #1] Output, Chest Tube Drainage 0 Amount [Left Lateral Chest #1] Output, Chest Tube Drainage 20 Amount [Left Lateral Chest #1] Output, Chest Tube Drainage 0 Amount [Left Lateral Chest #2] Output, Chest Tube Drainage 0 Amount [Left Lateral Chest #2] Output, Chest Tube Drainage 20 Amount [Left Lateral Chest #2] Output, Urine Amount 450 Output, Urine Amount 400 Output, Urine Amount 350 Weight 03/29/16 03/30/16 03/31/16 23:59 23:59 23:59 Weight 70.942 kg 70.6 kg 70.6 kg Lungs are clear to percussion and auscultation. Heart is in a regular rate and rhythm. Chest tube drainage is minimal and there is no air leak. - Labs 03/31/16 03:33 03/31/16 03:33 Lab Results, Last 24 hours 03/31/16 03/31/16 03:33 03:33 WBC 10.7 Hgb 8.2 L Hct 24.8 L Plt Count 555 H Sodium 137 Potassium 4.1 Chloride 104 Carbon Dioxide 26 BUN 5 L Creatinine 0.73 Glucose 97 Calcium 8.2 L - VTE Documentation of Mechanical Device: Intermittent pneumatic compression device Consult Discharge Plan - Plan Referrals: Roxie Hinojosa CNP [Primary Care Provider] - 04/11/16 2:30 pm () Prescriptions: Linezolid [Zyvox] 600 mg PO BID #22 tablet
[2016-04-01] MEDS: Ipratropium/Albuterol Neb 3 ML IH SCH ×7 (00:32→23:28)
[2016-04-01 05:44] LABS: Basophils % 0.5 %; Eosinophils # 0.2 K/mcL (0.0-0.6); Eosinophils % 2.9 %; Hematocrit 28.3 % (35.3-44.9); Immature Granulocytes % 0.7 % (0-4); Lymphocytes # 1.5 K/mcL (0.6-4.6); Lymphocytes % 17.3 %; Mean Corpuscular HGB Conc 31.8 g/dL (31.6-35.5); Mean Corpuscular Hemoglobin 30.3 pg (28.0-33.3); Mean Corpuscular Volume 95.3 fL (83.0-100.0); Mean Platelet Volume 8.7 fL (9.4-12.4); Monocytes # 0.6 K/mcL (0.0-1.3); Monocytes % 6.8 %; Platelet Count 566 K/mcL (140-400); Red Blood Count 2.97 M/mcL (3.82-4.97); Red Cell Distribution Width 13.4 % (11.5-14.5); Segmented Neutrophils % 71.8 %
[2016-04-01 05:57] LABS: BUN/Creatinine Ratio 6 (6-26); Calcium 8.7 mg/dL (8.6-10.8); Carbon Dioxide 27 mEq/L (19-29); Chloride 103 mEq/L (98-109); Glucose 110 mg/dL (70-99); Osmolality,Calculated 282 (280-300); Potassium 4.2 mEq/L (3.5-4.5); Sodium 137 mEq/L (136-145); eGFR For African Americans > 60 (> 60); eGFR For Non-African Americans > 60 (> 60)
[2016-04-01 05:58] LABS: Blood Urea Nitrogen 5 mg/dL (7-20)
[2016-04-01] MEDS: *HR* Heparin 5,000 UNIT/ML VIAL SQ SCH ×2 (06:02→17:27)
--- NOTE | 2016-04-01 08:16 | Cardiothoracic Progress Note ---
Date of Encounter: 04/01/16 Time of Encounter: 08:15 - Assessment and plan (1) Empyema of lung Current Visit: Yes Status: Acute I discontinued the chest tube suction. We will remove the chest tubes tomorrow morning. - Subjective Interval history: The patient has no complaints other than mild postoperative pain. Vital Signs, Last 4 Hours Temp Pulse Resp BP Pulse Ox 04/01/16 07:25 99 F 85 16 126/79 94 L Oxgyen Flow Rate Oxygen Flow Rate (LPM) 1 Clinical Data, last 8 Hours Output, Chest Tube Drainage 0 Amount [Left Lateral Chest #1] Output, Chest Tube Drainage 5 Amount [Left Lateral Chest #2] Output, Urine Amount 550 Weight 03/30/16 03/31/16 04/01/16 23:59 23:59 23:59 Weight 70.6 kg 70.6 kg Lungs are clear to percussion and auscultation. Heart is in a regular rate and rhythm. Her incision is healing well without signs of infection. Chest tube drainage is minimal and there is no air leak. - Labs 04/01/16 05:31 04/01/16 05:31 Lab Results, Last 24 hours 04/01/16 04/01/16 05:31 05:31 WBC 8.4 Hgb 9.0 L Hct 28.3 L Plt Count 566 H Sodium 137 Potassium 4.2 Chloride 103 Carbon Dioxide 27 BUN 5 L Creatinine 0.77 Glucose 110 H Calcium 8.7 - VTE Documentation of Mechanical Device: Intermittent pneumatic compression device Consult Discharge Plan - Plan Referrals: Roxie Hinojosa CNP [Primary Care Provider] - 04/11/16 2:30 pm () Prescriptions: Linezolid [Zyvox] 600 mg PO BID #22 tablet
[2016-04-01] MEDS: Ondansetron 4 MG/2 ML VIAL IVP PRN (08:22)
--- NOTE | 2016-04-01 08:32 | Pulmonology Progress Note ---
Date of Encounter: 04/01/16 Time of Encounter: 08:30 Assessment and Plan (1) Empyema of lung Current Visit: Yes Status: Acute MRSA identified from pleural effusion hence empyema for which patient underwent decortication. Continue antibiotic therapy (Zyvox) for at least 2 weeks. Chest tube management per cardiothoracic surgery service. Call if any questions arise. Ed [facility] [phone] Code(s): J86.9 - Pyothorax without fistula SNOMED Code(s): 912803448 Subjective Principal diagnosis: Pneumonia Interval history: The patient underwent a left decortication for treatment of an MRSA empyema. She still has two chest tubes in place moderate discomfort but otherwise feels reasonably well. I see no air leak from the chest tubes at least during my evaluation and note minimal output. Otherwise, the patient denies any specific complaints at this time. Objective PUL Vital signs: Last Vital Signs Temp 99 F 04/01/16 07:25 Pulse 85 04/01/16 07:25 Resp 16 04/01/16 07:25 BP 126/79 04/01/16 07:25 Pulse Ox 94 L 04/01/16 07:25 General appearance: no acute distress Eyes: nonicteric ENT: oropharynx moist Neck: supple Effort: normal Auscultation: left: diminished breath sounds Gastrointestinal: normoactive bowel sounds Integumentary: normal Extremities: no cyanosis, no edema Gait: normal posture normal mental status, non-focal exam mood appropriate Results - Laboratory Findings CBC and BMP: 04/01/16 05:31 04/01/16 05:31 ABG ABG pH 7.40 pH Units (7.32-7.45) 03/28/16 11:49 ABG pCO2 48 mmHg (35-45) H 03/28/16 11:49 ABG pO2 66 mmHg (85-104) L 03/28/16 11:49 ABG O2 Saturation 93 % (95-98) L 03/28/16 11:49 PT/INR, D-dimer D-Dimer 584 ng/mLFEU (0-500) H 03/20/16 05:37 Abnormal lab findings: Abnormal lab results RBC 2.97 M/mcL (3.82-4.97) L 04/01/16 05:31 Hgb 9.0 g/dL (11.5-15.4) L 04/01/16 05:31 Hct 28.3 % (35.3-44.9) L 04/01/16 05:31 Plt Count 566 K/mcL (140-400) H 04/01/16 05:31 MPV 8.7 fL (9.4-12.4) L 04/01/16 05:31 Reactive Lymphocytes Present (Not Present) A 03/20/16 05:37 D-Dimer 584 ng/mLFEU (0-500) H 03/20/16 05:37 ABG pCO2 48 mmHg (35-45) H 03/28/16 11:49 ABG pO2 66 mmHg (85-104) L 03/28/16 11:49 ABG HCO3 29.7 mEQ/L (21-27) H 03/28/16 11:49 ABG Total CO2 31.2 mEq/L (20-26) H 03/28/16 11:49 ABG O2 Saturation 93 % (95-98) L 03/28/16 11:49 ABG Base Excess 4.2 mEq/L (-2.0 to 3.0) H 03/28/16 11:49 BUN 5 mg/dL (7-20) L 04/01/16 05:31 Glucose 110 mg/dL (70-99) H 04/01/16 05:31 POC Glucose 139 (58-89) H 03/28/16 10:49 C-Reactive Protein 255 mg/L (Less than 5) H 03/23/16 04:39 B-Natriuretic Peptide 183 pg/mL (0-100) H 03/23/16 04:39 Albumin 2.0 g/dL (3.5-5.0) L 03/23/16 04:39 Globulin 4.0 g/dL (2.4-3.5) H 03/23/16 04:39 Albumin/Globulin Ratio 0.5 (1.1-2.2) L 03/23/16 04:39 Ur Specific [place] 1.006 (1.010-1.025) L 03/20/16 05:30 Urine Ketones 40 mg/dL (Negative) H 03/20/16 05:30 Urine Blood Large (Negative) H 03/20/16 05:30 Urine Microscopic RBC 3-5 per hpf (0-3) H 03/20/16 05:30 Urine Bacteria Moderate per hpf (None-Few) H 03/20/16 05:30 Pleural Appearance Cloudy (Clear) A 03/23/16 10:00 Pleural RBC 0.009 M/mcL (0.000-0.002) H 03/23/16 10:00 Pleural Tot Nuc Cell > 79998 TNC/mcL (0-1000) H 03/23/16 10:00 Vancomycin Trough 20.9 mcg/mL (10-20) H* 03/25/16 19:38 - Microbiology Findings Microbiology Findings: Microbiology, Last 48 Hours 03/28/16 08:40 Anaerobic Culture - Preliminary Pleural Fluid At this time, no anaerobic growth is present. The culture will be finalized after 5 days of incubation. 03/28/16 08:40 Body Fluid Culture - Final Pleural Fluid - Clinical Findings Intake & Output: Intake & Output 03/31/16 04/01/16 04/01/16 23:59 07:59 15:59 Intake Total 700 / 700 540 / 540 Output Total 1450 / 1450 555 / 555 Balance -750 / -750 -15 / -15 - VTE Documentation of Mechanical Device: Intermittent pneumatic compression device Consult Discharge Plan - Plan Referrals: Roxie Hinojosa CNP [Primary Care Provider] - 04/11/16 2:30 pm () Prescriptions: Linezolid [Zyvox] 600 mg PO BID #22 tablet
--- NOTE | 2016-04-01 09:50 | Internal Med Progress Note ---
Date of Encounter: 04/01/16 Time of Encounter: 09:45 - Assessment and plan (1) Sepsis Current Visit: Yes Status: Acute Assessment and plan: From MRSA pneumonia. Blood cultures have been negative. Leukocytosis has resolved Patient is much more improved s/p decortication Continue current medication Qualifiers: Sepsis type: methicillin resistant Staphylococcus aureus Qualified Code(s) : A41.02 - Sepsis due to Methicillin resistant Staphylococcus aureus (2) Pneumonia Current Visit: Yes Status: Acute Assessment and plan: As above Qualifiers: Pneumonia type: due to methicillin-resistant Staphylococcus aureus (MRSA) Laterality: bilateral Lung location: unspecified part of lung Qualified Code (s): J15.212 - Pneumonia due to Methicillin resistant Staphylococcus aureus (3) Acute respiratory failure with hypoxia Current Visit: Yes Status: Resolved Assessment and plan: Resolved, now on room air, continue to monitor (4) Parapneumonic effusion Current Visit: Yes Status: Acute Assessment and plan: Empyema thoracis, with MRSA s/p decortication Thoracic surgery following, continue to monitor (5) Pulmonary edema Current Visit: Yes Status: Resolved Assessment and plan: Ruled out Qualifiers: Chronicity: acute Qualified Code(s): J81.0 - Acute pulmonary edema - Subjective Interval history: 40 Y/O F She was admitted for management of sepsis secondary to bilateral pneumonia, complicated by parapneumonic effusion/empyema and acute hypoxic respiratory failure Pleural fluid growing MRSA, Blood and sputum culture negative, repeat blood culture negative s/p left thoracentensis by pulmonology 03/24 s/p decortication and chest tube 03/28 Chest tube clamped today Leukocytosis has resolved since 03/30, HB low but stable, afebrile since 03/26 Seen at bedside, no new complains Has completed 4 days of Vancomycin, 7 days of Linezolid-total 11 days of MRSA antibiotics 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 Absent: lymphadenopathy - Respiratory Additional comments: Left lung mid and low zone rales. Chest tube on left thoracic region, dressing clean and dry - Cardiovascular Cardiovascular exam: Present: RRR, +S1, +S2. Absent: diastolic murmur, gallop, rubs, systolic murmur - GI/Abdominal GI/Abdominal exam: Present: normal bowel sounds, soft, no peritoneal signs. Absent: distended, tenderness - Extremities Exam Extremities exam: Present: warm, radial pulses palpable and symetrical. Absent : calf tenderness, cyanotic, pedal edema - Neurological Exam Neurological exam: Present: CN II-XII intact, oriented X3, no focal deficits. Absent: pronater drift, facial droop, speech deficit - Skin Skin exam: Present: dry, intact Internal Medicine: Result - Labs CBC & Chem 7: 04/01/16 05:31 04/01/16 05:31 Labs: Short CBC 04/01/16 Range/Units 05:31 WBC 8.4 (4.3-11.1) K/mcL Hgb 9.0 L (11.5-15.4) g/dL Hct 28.3 L (35.3-44.9) % Plt Count 566 H (140-400) K/mcL Neutrophils # 6.0 (1.6-8.9) K/mcL BMP 04/01/16 05:31 Sodium 137 Potassium 4.2 Chloride 103 Carbon Dioxide 27 BUN 5 L Creatinine 0.77 Glucose 110 H Calcium 8.7 - ABG Interpretation ABG results: ABG ABG pH 7.40 pH Units (7.32-7.45) 03/28/16 11:49 ABG pCO2 48 mmHg (35-45) H 03/28/16 11:49 ABG pO2 66 mmHg (85-104) L 03/28/16 11:49 ABG O2 Saturation 93 % (95-98) L 03/28/16 11:49 PT/INR, D-dimer D-Dimer 584 ng/mLFEU (0-500) H 03/20/16 05:37 - Impressions Impressions Chest X-Ray 03/31/16 06:00 IMPRESSION: 1. Stable lines and tubes. 2. Stable patchy airspace opacities with more focal opacities in the bilateral bases with small effusions. D/ / 03/31/2016 08:38:31 Shantal Daley MD / amita Interpreting Provider: Shantal Daley MD Chest X-Ray 04/01/16 00:01 IMPRESSION: Stable chest. Bibasilar consolidation, left greater than right remains. . No pneumothorax seen on the left. D/ / Christopher Fish MD / Christopher Fish MD Interpreting Provider: Christopher Fish MD - VTE Documentation of Mechanical Device: Intermittent pneumatic compression device Consult Discharge Plan - Plan Referrals: Roxie Hinojosa CNP [Primary Care Provider] - 04/11/16 2:30 pm () Prescriptions: Linezolid [Zyvox] 600 mg PO BID #22 tablet
[2016-04-01] MEDS: Linezolid 600 MG TABLET PO SCH (17:28)
[2016-04-01] MEDS: 0.9 % Sodium Chloride w KCl 20 MEQ/1,000 ML MLS IV SCH (17:30)
[2016-04-02] MEDS: Ipratropium/Albuterol Neb 3 ML IH SCH ×6 (04:03→23:40)
[2016-04-02] MEDS: *HR* Heparin 5,000 UNIT/ML VIAL SQ SCH ×2 (05:31→17:08)
[2016-04-02] MEDS: 0.9 % Sodium Chloride w KCl 20 MEQ/1,000 ML MLS IV SCH (05:32)
[2016-04-02] MEDS: Linezolid 600 MG TABLET PO SCH ×2 (05:32→17:07)
[2016-04-02] MEDS: Ondansetron 4 MG/2 ML VIAL IVP PRN ×2 (05:50→12:57)
--- NOTE | 2016-04-02 12:53 | Cardiothoracic Progress Note ---
Date of Encounter: 04/02/16 Time of Encounter: 12:51 - Assessment and plan (1) Empyema of lung Current Visit: Yes Status: Acute The chest tubes were removed. We will check a stat portable chest x-ray. 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 The patient can be discharged tomorrow if she is medically stable. - Subjective Interval history: The patient has no complaints. Vital Signs, Last 4 Hours Temp Pulse Resp BP Pulse Ox 04/02/16 11:55 97.8 F 93 16 122/73 95 04/02/16 11:30 18 96 Oxgyen Flow Rate Oxygen Flow Rate (LPM) 1 Clinical Data, last 8 Hours Output, Chest Tube Drainage 40 Amount [Left Lateral Chest #1] Output, Chest Tube Drainage 0 Amount [Left Lateral Chest #1] Output, Chest Tube Drainage 16 Amount [Left Lateral Chest #2] Output, Chest Tube Drainage 0 Amount [Left Lateral Chest #2] Output, Urine Amount 0 Output, Urine Amount 550 Weight 03/31/16 04/01/16 04/02/16 23:59 23:59 23:59 Weight 70.6 kg 70.2 kg Lungs are clear to percussion and auscultation. Heart is in a normal sinus rhythm. All incisions are healing well without signs of infection and the sternum is stable. Chest tubes had minimal drainage and no air leak. - Labs 04/01/16 05:31 04/01/16 05:31 - VTE Documentation of Mechanical Device: Intermittent pneumatic compression device Consult Discharge Plan - Plan Referrals: Roxie Hinojosa CNP [Primary Care Provider] - 04/11/16 2:30 pm () Prescriptions: Linezolid [Zyvox] 600 mg PO BID #22 tablet
--- NOTE | 2016-04-02 12:56 | Internal Med Progress Note ---
Date of Encounter: 04/02/16 Time of Encounter: 11:10 - Assessment and plan (1) Sepsis Current Visit: Yes Status: Acute Assessment and plan: From MRSA pneumonia. Blood cultures have been negative. Leukocytosis has resolved Patient is much more improved s/p decortication Continue current medication Qualifiers: Qualified Code(s): A41.02 - Sepsis due to Methicillin resistant Staphylococcus aureus (2) Pneumonia Current Visit: Yes Status: Acute Assessment and plan: As above Qualifiers: Qualified Code(s): J15.212 - Pneumonia due to Methicillin resistant Staphylococcus aureus (3) Acute respiratory failure with hypoxia Current Visit: Yes Status: Resolved Assessment and plan: Resolved, now on room air, continue to monitor (4) Parapneumonic effusion Current Visit: Yes Status: Acute Assessment and plan: Empyema thoracis, with MRSA s/p decortication Thoracic surgery following, continue to monitor (5) Pulmonary edema Current Visit: Yes Status: Resolved Assessment and plan: Ruled out Qualifiers: Qualified Code(s): J81.0 - Acute pulmonary edema - Subjective Interval history: 40 Y/O F She was admitted for management of sepsis secondary to bilateral pneumonia, complicated by parapneumonic effusion/empyema and acute hypoxic respiratory failure Pleural fluid growing MRSA, Blood and sputum culture negative, repeat blood culture negative s/p left thoracentensis by pulmonology 03/24 s/p decortication and chest tube 03/28 Chest tube clamped today Leukocytosis has resolved since 03/30, HB low but stable, afebrile since 03/26 Has completed 4 days of Vancomycin, 7 days of Linezolid-total 12 days of MRSA antibiotics 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 Absent: lymphadenopathy - Respiratory Additional comments: Left chest wall with chest tubes, not draining. Decreased breath sounds with rhonchi on left lung base - Cardiovascular Cardiovascular exam: Present: RRR, +S1, +S2. Absent: diastolic murmur, gallop, rubs, systolic murmur - GI/Abdominal GI/Abdominal exam: Present: normal bowel sounds, soft, no peritoneal signs. Absent: distended, tenderness - Extremities Exam Extremities exam: Present: warm, radial pulses palpable and symetrical. Absent : calf tenderness, cyanotic, pedal edema - Neurological Exam Neurological exam: Present: CN II-XII intact, oriented X3, no focal deficits. Absent: pronater drift, facial droop, speech deficit - Skin Skin exam: Present: dry, intact Internal Medicine: Result - Labs CBC & Chem 7: 04/01/16 05:31 04/01/16 05:31 - ABG Interpretation ABG results: ABG ABG pH 7.40 pH Units (7.32-7.45) 03/28/16 11:49 ABG pCO2 48 mmHg (35-45) H 03/28/16 11:49 ABG pO2 66 mmHg (85-104) L 03/28/16 11:49 ABG O2 Saturation 93 % (95-98) L 03/28/16 11:49 PT/INR, D-dimer D-Dimer 584 ng/mLFEU (0-500) H 03/20/16 05:37 - VTE Documentation of Mechanical Device: Intermittent pneumatic compression device Consult Discharge Plan - Plan Referrals: Roxie Hinojosa CNP [Primary Care Provider] - 04/11/16 2:30 pm () Prescriptions: Linezolid [Zyvox] 600 mg PO BID #22 tablet
--- NOTE | 2016-04-02 14:22 | Event Note ---
Date of Encounter: 04/02/16 Time of Encounter: 14:20 I removed the 2 chest tubes earlier. There was no air leak prior to removal. The chest x-ray done after this was initially read to show a pneumothorax. I looked at this and did not feel that there was a pneumothorax. I reviewed it with the radiologist who agreed that there were vascular markings crossing to the chest wall laterally. The patient is doing well. Her O2 saturation is 95% on room air and she is not short of breath. No tachypnea. We will recheck a chest x-ray tomorrow morning.
[2016-04-02] MEDS: *HR* OxyCODONE/APAP 5/325 TABLET PO PRN ×2 (15:14→21:30)
[2016-04-03] MEDS: Ipratropium/Albuterol Neb 3 ML IH SCH ×2 (05:13→07:52)
[2016-04-03] MEDS: Linezolid 600 MG TABLET PO SCH (06:33)
[2016-04-03] MEDS: *HR* Heparin 5,000 UNIT/ML VIAL SQ SCH (06:33)
--- NOTE | 2016-04-03 07:02 | Cardiothoracic Progress Note ---
Date of Encounter: 04/03/16 Time of Encounter: 07:00 - Assessment and plan (1) Empyema of lung Current Visit: Yes Status: Acute The patient is okay for discharge from our standpoint. She should see Dr. Berry in the office in 4 weeks. - Subjective Interval history: The patient has no complaints and is anxious to go home. Oxgyen Flow Rate Oxygen Flow Rate (LPM) 1 Clinical Data, last 8 Hours Output, Urine Amount 600 Weight 04/01/16 04/02/16 04/03/16 23:59 23:59 23:59 Weight 70.2 kg Lungs are clear to percussion and auscultation. Heart is in a normal sinus rhythm. All incisions are healing well without signs of infection. I am unable to see a pneumothorax on today's chest x-ray. She does have some atelectasis. - Labs 04/01/16 05:31 04/01/16 05:31 - VTE Documentation of Mechanical Device: Intermittent pneumatic compression device Consult Discharge Plan - Plan Referrals: Roxie Hinojosa CNP [Primary Care Provider] - 04/11/16 2:30 pm () Prescriptions: Linezolid [Zyvox] 600 mg PO BID #22 tablet
[2016-04-03] MEDS: *HR* OxyCODONE/APAP 5/325 TABLET PO PRN ×2 (08:16→13:20)
--- NOTE | 2016-04-03 10:00 | Discharge Summary ---
Date of Encounter: 04/03/16 Time of Encounter: 09:45 - Discharge Diagnosis (1) Sepsis Priority: Primary Status: Resolved Qualifiers: Sepsis type: methicillin resistant Staphylococcus aureus Qualified Code(s) : A41.02 - Sepsis due to Methicillin resistant Staphylococcus aureus (2) Pneumonia Priority: Primary Status: Acute Qualifiers: Pneumonia type: due to methicillin-resistant Staphylococcus aureus (MRSA) Laterality: bilateral Lung location: unspecified part of lung Qualified Code (s): J15.212 - Pneumonia due to Methicillin resistant Staphylococcus aureus (3) Acute respiratory failure with hypoxia Priority: Primary Status: Resolved (4) Parapneumonic effusion Priority: Primary Status: Resolved (5) Pulmonary edema Priority: Primary Status: Ruled-out Qualifiers: Chronicity: acute Qualified Code(s): J81.0 - Acute pulmonary edema - Discharge Medications Prescriptions: Acetaminophen [Tylenol] 325 mg PO Q6HR PRN #15 tablet PRN Reason: Mild Pain (1-3) Ibuprofen 400 mg PO Q8HR PRN #15 tablet PRN Reason: Moderate Pain Linezolid [Zyvox] 600 mg PO Q12HR #2 tablet Docusate [Colace] 100 mg PO BID #60 capsule OxyCODONE/APAP 5/325 [Percocet 5/325 MG] 1 each PO Q8H PRN #20 tablet PRN Reason: Severe Pain Home Medications: Acetaminophen [Tylenol] 325 mg PO Q6HR PRN #15 tablet 04/03/16 [Rx] Docusate [Colace] 100 mg PO BID #60 capsule 04/03/16 [Rx] Ibuprofen 400 mg PO Q8HR PRN #15 tablet 04/03/16 [Rx] Linezolid [Zyvox] 600 mg PO Q12HR #2 tablet 04/03/16 [Rx] OxyCODONE/APAP 5/325 [Percocet 5/325 MG] 1 each PO Q8H PRN #20 tablet 04/03/16 [ Rx] Allergies/Adverse Reactions: Allergies prednisone Allergy (Verified 03/20/16 09:02) Shakiness her doctor told her not to take it Date of admission: 03/20/16 09:36 Primary care physician: Roxie Hinojosa CNP Consults: 03/23/16 07:41 Consult to Pulmonology [CONS] Stat Consulting Provider: [facility] [place] Reason for Consult: Parapneumonic effusion Time Notified: 07:42 Call Completed: Yes 03/24/16 09:50 Consult to Cardiothoracic Surgery [CONS] Routine Consulting Provider: Cardiothoracic Surgery [facility] Reason for Consult: Empyema Time Notified: 10:00 Call Completed: Yes 03/25/16 16:52 Consult to Occupational Therapy [CONS] Routine Comment: Evaluate, develop and implement POC Consult to Physical Therapy [CONS] Routine Comment: Evaluate, develop and implement POC Consult to Risk Management Analyst [CONS] Routine Reason for SW Consult: Discharge planning 03/28/16 08:10 Consult to Pulmonology [CONS] Routine Consulting Provider: [facility] [place] Reason for Consult: ICU management Time Notified: 08:10 Call Completed: Yes 03/29/16 11:43 Consult to Risk Management Analyst [CONS] Routine Reason for SW Consult: Stressors at home (Significant, it sounds like) Discharging clinician: Zoran Paige Anticipated date of discharge: 04/03/16 - Patient Status Disposition: Home, Self-Care Condition: Good Functional capacity at discharge: independent ambulation Overall status at discharge: patient is back to baseline - Discharge Instructions Instructions: Ibuprofen (By mouth), Oxycodone/Acetaminophen (By mouth), Laxative, Stool Softeners (By mouth), Linezolid (By mouth), Thoracotomy (DC), Cigarette Smoking and Your Health (GEN) Follow Up With: Roxie Hinojosa CNP [Primary Care Provider] - 04/11/16 2:30 pm () Nano Berry MD [Partnered Physician] - 04/17/16 2:50 pm Additional Instructions: - NO DRIVING UNTIL YOUR FOLLOW UP APPOINTMENT OR DIRECTED. - NO LIFTING MORE THAN 10 POUNDS. - NO STRAINING. - SHOWERS ARE OKAY. NO TUB BATHS, HOT TUBS, SWIMMING POOLS. - YOU MAY LEAVE YOUR INCISIONS OPEN TO AIR. IF THEY ARE DRAINING, YOU MAY APPLY GAUZE AND TAPE. Interval History: See below Hospital course: 40 Y/O F She was admitted 03/20/16 for management of sepsis secondary to bilateral pneumonia, complicated by parapneumonic effusion/empyema and acute hypoxic respiratory failure Patient with clinical and laboratory and radiologic evidence of sepsis secondary to BIlateral PNA, she was started on empiric management for community acquired pneumonia She continued to require high oxygen supplementation and leukocytosis persisted Thoracentensis was done 03/23/16 with evidence of parapneumonic effusion, with pleural fluid culture with MRSA, antibiotics escalated to Vancomycin and Zosyn Blood and sputum culture negative, repeat blood culture negative She continued to be symptomatic, and empyema thoracis requiring decortication and chest tube placement 03/28 Leukocytosis has resolved since 03/30, HB low but stable, afebrile since 03/26 She continued to make significant clinical improvement Chest tube was removed 04/02, and follow up CXR with bilateral atelectasis and no pneumothorax Has completed 4 days of Vancomycin, 8 days of Linezolid-total 12 days of MRSA antibiotics She is clinically stable for discharge home with pain control and one more day of Zyvox Follow up with PCP Follow up with Thoracic surgery Plan of care discussed, verbalized understanding - Time Spent with Patient Total time spent providing and/or coordinating discharge services: Less than 30 minutes - Constitutional Vitals: Temp Pulse Resp BP Pulse Ox 97.4 F L 98 18 113/79 92 L 04/03/16 07:45 04/03/16 08:15 04/03/16 07:54 04/03/16 07:45 04/03/16 07:54 General appearance: Present: cooperative, A&O X 3, pleasant, no acute distress, answers questions appropriately - Head Head exam: Present: atraumatic, normocephalic - Eye Eye exam: Present: PERRL, conjuntiva pink, sclera anicteric Pupils: Present: PERRL - Neck Neck exam general surgery: Present: supple, trachea midline. Absent: lymphadenopathy - Respiratory Respiratory exam: Present: CTAB (Diminshed at the lung base) - Cardiovascular Cardiovascular exam: Present: RRR, +S1, +S2. Absent: diastolic murmur, gallop, rubs, systolic murmur - GI/Abdominal GI/Abdominal exam: Present: normal bowel sounds, soft, no peritoneal signs. Absent: distended, tenderness - Extremities Exam Extremities exam: Present: warm, radial pulses palpable and symetrical. Absent : calf tenderness, cyanotic, pedal edema - Neurological Exam Neurological exam: Present: CN II-XII intact, oriented X3, no focal deficits. Absent: pronater drift, facial droop, speech deficit - Skin Skin exam: Present: dry - VTE Documentation of Mechanical Device: Intermittent pneumatic compression device
[2016-04-03 11:33] VITALS: BP 106/68
[2016-04-03] MEDS ORDERED: FLU VACC QS2016-17 36MOS UP/PF 0.5 ML SYRINGE IM ONE (12:36)
== END 2016-04-03 14:20 | disposition home or self-care (01) | DRG 710 ==
LOC: EMEROO 05:05 → 3BNU 05:05 → SUATTDRO 09:36 → 2ANU 03-22 17:26 → ICNU 03-28 08:04 → 2NNU 03-29 12:29
PROVIDERS: ADMIT Family Medicine; ATTEND Internal Medicine

== ENCOUNTER 2021-07-18 20:47 | Observation (INO) ==
[2021-07-18 22:15] LABS: Bacteria,Urine Few per hpf (None-Few); Bilirubin,Urine Negative (Negative); Blood,Urine Moderate (Negative); Clarity,Urine Turbid (Clear); Color,Urine Yellow (Yellow); Glucose,Urine (UA) Normal (Normal); Ketones,Urine >150 mg/dL (Negative); Leukocyte Esterase,Urine Moderate (Negative); Mucus,Urine Many per lpf (None-Few); Nitrite,Urine Negative (Negative); Protein,Urine 50 mg/dL (Neg-Trace); RBC,Urine 15-30 per hpf (0-3); Specific Gravity,Urine > 1.030 (1.010-1.025); Squamous Epithelial Cell,Urine Moderate per hpf (None-Few)
[2021-07-18 22:19] LABS: Basophils % 0.4 %; Eosinophils # 0.1 K/mcL (0.0-0.6); Eosinophils % 1.5 %; Hemoglobin 13.2 g/dL (11.5-15.4); Immature Granulocytes % 0.2 % (0-4); Lymphocytes # 1.9 K/mcL (0.6-4.6); Lymphocytes % 20.9 %; Mean Corpuscular HGB Conc 34.7 g/dL (31.6-35.5); Mean Corpuscular Hemoglobin 31.5 pg (28.0-33.3); Mean Corpuscular Volume 90.7 fL (83.0-100.0); Mean Platelet Volume 10.7 fL (9.4-12.4); Monocytes % 10.8 %; Neutrophils # 6.2 K/mcL (1.6-8.9); Platelet Count 237 K/mcL (140-400); Red Blood Count 4.19 M/mcL (3.82-4.97); Red Cell Distribution Width 11.9 % (11.5-14.5); Segmented Neutrophils % 66.2 %; White Blood Count 9.3 K/mcL (4.3-11.1)
[2021-07-18 22:32] LABS: BUN/Creatinine Ratio 20 (6-26); Blood Urea Nitrogen 14 mg/dL (6-20); Calcium 9.7 mg/dL (8.6-10.3); Carbon Dioxide 27 mEq/L (23-29); Chloride 101 mEq/L (98-107); Glucose 102 mg/dL (70-105); Osmolality,Calculated 283 (280-300); Sodium 136 mEq/L (136-145); eGFR For African Americans > 60 (> 60); eGFR For Non-African Americans > 60 (> 60)
[2021-07-18] MEDS ORDERED: Ondansetron 4 MG/2 ML VIAL IVP ONE (23:33)
[2021-07-18] MEDS ORDERED: Morphine Sulfate 2 MG/ML SYRINGE IVP ONE (23:33)
[2021-07-18] MEDS ORDERED: 0.9 % Sodium Chloride 1,000 ML IV ONE (23:52)
[2021-07-19 00:31] LABS: Albumin 4.9 g/dL (3.5-5.7); Albumin/Globulin Ratio 1.4 (1.1-2.2); Bilirubin,Direct 0.1 mg/dL (0.0-0.2); Bilirubin,Indirect 0.5 mg/dL (0.0-1.0); Bilirubin,Total 0.6 mg/dL (0.3-1.0); Globulin 3.5 g/dL (2.4-3.5); Total Protein 8.4 g/dL (6.4-8.9)
[2021-07-19] MEDS ORDERED: *HR* HYDROmorphone (PF) 1 MG/ML SYRINGE IVP ONE (00:33)
[2021-07-19] MEDS ORDERED: cefTRIAXone 1,000 MG in 0.9 % Sodium Chloride 10 ML IVP ONE (01:24)
[2021-07-19] MEDS ORDERED: Naloxone 0.4 MG/ML INJ IVP PRN (02:34)
[2021-07-19] MEDS ORDERED: Ondansetron ODT 4 MG TAB.RAPDIS SL PRN ×2 (02:34→13:53)
[2021-07-19] MEDS ORDERED: Ondansetron 4 MG/2 ML VIAL IVP PRN (03:32)
[2021-07-19] MEDS ORDERED: Morphine Sulfate 2 MG/ML SYRINGE IVP PRN (04:00)
[2021-07-19] MEDS ORDERED: *HR* HYDROmorphone (PF) 1 MG/ML SYRINGE IVP PRN (04:00)
[2021-07-19] MEDS: 0.9 % Sodium Chloride 1,000 ML IVC SCH ×4 (04:12→20:11)
[2021-07-19] MEDS ORDERED: Piperacillin/Tazobactam 3.375 GM in 0.9 % Sodium Chloride Mini Bag 100 ML IVPB SCH (08:00)
[2021-07-19] MEDS ORDERED: *HR* Propofol 200 MG/20 ML VIAL IVP ONE (09:32)
[2021-07-19] MEDS ORDERED: *HR* Midazolam HCl 2 MG/2 ML VIAL ONE (09:32)
[2021-07-19] MEDS ORDERED: *HR* FentaNYL (PF) 100 MCG/2 ML VIAL ONE ×2 (09:32→12:21)
[2021-07-19 09:49] LABS: Hematocrit 38.3 % (35.3-44.9); Hemoglobin 12.8 g/dL (11.5-15.4); Mean Corpuscular HGB Conc 33.4 g/dL (31.6-35.5); Mean Corpuscular Hemoglobin 30.9 pg (28.0-33.3); Mean Corpuscular Volume 92.5 fL (83.0-100.0); Mean Platelet Volume 10.8 fL (9.4-12.4); Platelet Count 197 K/mcL (140-400); Red Blood Count 4.14 M/mcL (3.82-4.97); Red Cell Distribution Width 11.9 % (11.5-14.5); White Blood Count 6.1 K/mcL (4.3-11.1)
[2021-07-19 10:08] LABS: BUN/Creatinine Ratio 24 (6-26); Blood Urea Nitrogen 14 mg/dL (6-20); Calcium 8.7 mg/dL (8.6-10.3); Carbon Dioxide 25 mEq/L (23-29); Chloride 105 mEq/L (98-107); Glucose 75 mg/dL (70-105); Osmolality,Calculated 287 (280-300); Potassium 3.7 mEq/L (3.5-5.1); Sodium 139 mEq/L (136-145); eGFR For African Americans > 60 (> 60); eGFR For Non-African Americans > 60 (> 60)
[2021-07-19] MEDS ORDERED: *HR* FentaNYL (PF) 100 MCG/2 ML VIAL IVP PRN (10:08)
[2021-07-19] MEDS ORDERED: Ketorolac 30 MG/ML VIAL ONE (11:19)
[2021-07-19] MEDS ORDERED: Ondansetron 4 MG/2 ML VIAL ONE (11:19)
[2021-07-19] MEDS ORDERED: EPHEDrine 50 MG/ML VIAL ONE (11:20)
[2021-07-19] MEDS ORDERED: Sugammadex Sodium 200 MG/2 ML VIAL IV ONE (12:28)
[2021-07-19] MEDS ORDERED: Acetaminophen IV 1,000 MG/100 ML BAG IVPB PRN (13:27)
[2021-07-19] MEDS ORDERED: Acetaminophen IV 1,000 MG/100 ML BAG IVPB ONE (13:29)
[2021-07-19] MEDS ORDERED: *HR* OxyCODONE Immed Rel 5 MG TABLET PO PRN (13:53)
[2021-07-19] MEDS: Piperacillin/Tazobactam 3.375 GM in 0.9 % Sodium Chloride Mini Bag 100 ML IVPB SCH (16:31)
[2021-07-19] MEDS: *HR* OxyCODONE Immed Rel 5 MG TABLET PO PRN ×2 (18:14→21:57)
[2021-07-20] MEDS: Piperacillin/Tazobactam 3.375 GM in 0.9 % Sodium Chloride Mini Bag 100 ML IVPB SCH ×2 (01:40→08:29)
[2021-07-20] MEDS: *HR* OxyCODONE Immed Rel 5 MG TABLET PO PRN ×3 (02:37→13:35)
[2021-07-20 03:06] VITALS: O2SAT 96
[2021-07-20 07:16] VITALS: BP 114/74; PULSE 73; TEMP 98.2
[2021-07-20] MEDS ORDERED: Acetaminophen 325 MG TABLET PO PRN (08:00)
[2021-07-20] MEDS: 0.9 % Sodium Chloride 1,000 ML IVC SCH (08:30)
== END 2021-07-20 14:20 | disposition home or self-care (01) ==
LOC: EMEROOARM 20:47 → 3BNU 20:47 → SUATTDRO 07-19 02:52 → 3BNU 07-19 03:55
PROVIDERS: ADMIT Family Medicine; ATTEND Registered Nurse